=== PATIENT | female | born 1935 | race Caucasian/White ===

== ENCOUNTER → 2018-01-01 08:24 | Outpatient (CLI) | payer OTHER, MEDICAID, SELFPAY ==
[2018-01-01 09:35] LABS: Add Manual Diff / Slide Review NO; Basophils Percent Auto 0.9 % (0-2); Eosinophils Percent Auto 1.2 % (2-4); Hematocrit 38.1 % (36-46); Hemoglobin 13.1 g/dL (12.0-16.0); Lymphocytes Percent Auto 26.5 % (25-40); Mean Corpuscular HGB Conc 34.5 % (30-36); Mean Corpuscular Hemoglobin 30.9 PG (26-34); Mean Corpuscular Volume 89.7 fL (80-100); Monocytes Percent Auto 10.1 % (3-14); Neutrophils Absolute Auto 5400 /uL (3000-5900); Neutrophils Percent Auto 61.3 % (50-75); Platelet Count 306 X10^3/uL (150-400); Red Blood Cell Count 4.25 X10^6/uL (4.0-5.2); Red Cell Distribution Width 13.4 % (11.6-14.8); White Blood Cell Count 8.8 X10^3/uL (4.5-11.0)
[2018-01-01 10:06] LABS: Alanine Aminotransferase 16 IU/L (9-52); Albumin 4.3 g/dL (3.5-5.0); Albumin Globulin Ratio 1.3 (1.0-2.8); Alkaline Phosphatase 58 U/L (38-126); Aspartate Aminotransferase 28 IU/L (14-36); BUN Creatinine Ratio 16.3 (6-22); Bilirubin Total 0.5 mg/dL (0.2-1.3); Blood Urea Nitrogen 13 mg/dL (7-17); Calcium 9.4 mg/dL (8.4-10.2); Carbon Dioxide 31 mmol/L (22-32); Chloride 94 mmol/L (98-107); Cholesterol 159 mg/dL (140-199); Estimated Glomerular Filt Rate > 60.0 mL/min (>60); Globulin 3.4 g/dL (1.7-4.1); Glucose 89 mg/dL (80-110); HDL Cholesterol 69 mg/dL (40-60); HEMOLYSIS < 15 (0-50); LDL Cholesterol Calculated 79 mg/dL (<100); Potassium 3.6 mmol/L (3.4-5.1); Sodium 134 mmol/L (137-145); Total Protein 7.7 g/dL (6.3-8.2); Triglycerides 56 mg/dL (35-150)
[2018-01-01 10:23] LABS: Thyroid Stimulating Hormone 2.15 uIU/mL (0.47-4.68)
== END ==
PROVIDERS: PCP Family Medicine; Visit Provider Family Medicine
DX: I10 Essential (primary) hypertension (principal)
CPT/HCPCS: 80053; 80061; 84443; 85025

== ENCOUNTER 2018-02-16 10:17 | Emergency (ER) | payer OTHER, MEDICAID, SELFPAY ==
--- NOTE | 2018-02-16 10:21 | ED.NEUROSD ---
HPI - Neuro Symptoms/Deficit General Chief Complaint: Extremity Problem,Nontraumatic Stated Complaint: 'RIGHT ARM ISN'T WORKING' Time Seen by Provider: 02/16/18 10:21 Source: patient Mode of arrival: ambulatory Limitations: no limitations History of Present Illness HPI Narrative: Patient is an 82-year-old female here for evaluation of right arm pain. Patient states that several years ago she broke her right humerus. Has a plate and screws in her right humerus. She states that she has been doing physical therapy over the past several years and has regained all 70% the motion back in her right arm. She states that yesterday she did her normal exercises. No specific incident that could potentially have caused her problems today. Went to sleep last night without any problems. Woke up this morning and had pain with movement of her right shoulder and also pain in her right wrist. No other symptoms. She does have a history of Raynaud's and does have some tingling and a cool right hand. Related Data Home Medications Medication Instructions Recorded Confirmed aspirin 81 mg PO Q DAY #0 01/01/11 02/16/18 Previous Rx's Medication Instructions Recorded atenolol 50 mg PO QDAY #90 tab 12/01/17 levothyroxine 100 mcg PO QDAY #90 tab 12/01/17 estradiol 2 mg (7.5 mcg/24 hour) 1 vaginalrin VAG Q 3 MONTHS #1 each 12/10/17 vaginal ring lovastatin 20 mg PO HS #90 tab 12/16/17 polyethylene glycol 3350 17 gm PO QDAY #527 gm 01/11/18 Allergies Allergy/AdvReac Type Severity Reaction Status Date / Time Penicillins Allergy unkown due Verified 12/30/17 10:59 to childhood issues Review of Systems Constitutional Denies fatigue and Denies fever(s) Cardiovascular Denies chest pain and Denies dyspnea Respiratory Denies cough and Denies dyspnea Gastrointestinal Gastrointestinal: Denies abdominal pain, Denies nausea and Denies vomiting Genitourinary Denies dysuria Musculoskeletal Denies myalgias, Reports arthralgias (Right shoulder right wrist pain), Reports limited range of motion (Right shoulder) and Reports tingling (Right hand) Integumentary/Breasts Denies lesions and Denies rash Neurologic Reports tingling (Right hand) Endocrine Denies fatigue Hematologic/Lymphatic Denies easy bleeding and Denies easy bruising [facility] Medical History Hyperlipidemia (Chronic) Hypertension (Chronic) Hypothyroidism (Chronic) Surgical History History of surgery on arm (Resolved 06/06/13) History of third molar tooth extraction (Resolved 1971) History of tonsillectomy (Resolved 1966) Social History Smoking Status: Former smoker Exam Initial Vital Signs Initial Vital Signs: Vital Signs Temperature 97.3 F L 02/16/18 10:27 Pulse Rate 59 L 02/16/18 10:27 Respiratory Rate 16 02/16/18 10:27 Blood Pressure 182/85 H 02/16/18 10:27 Const General: cooperative, healthy appearing, comfortable, well developed, well groomed and No acute distress Orientation: alert, awake and oriented x3 HENMT Head: normal to inspection and normocephalic Resp Effort & Inspection: normal respiratory effort Auscultation: clear to auscultation bilaterally Cardio Rate: regular rate Rhythm: regular rhythm Pulses: radial pulses present on the right GI Inspection: non-distended Palpation: soft, No firm and No tender Skin Lesions: no lesions Rashes: no rashes Neuro Other: Sensation intact to light touch right upper extremity Extrem Other: Patient with limited range of motion of the right shoulder with tenderness to palpation throughout the right shoulder. Unable to flex or abduct the right shoulder. Right elbow unremarkable. Patient with tenderness to palpation on the volar aspect of the right wrist with limited bed flexion of the right wrist. Course Orders Ordered: ED Orders 02/16/18 10:28 XR shoulder RT min 2V Stat XR wrist RT min 3V Stat Vital Signs - 8 hr 02/16/18 10:27 02/16/18 10:54 02/16/18 11:57 Temperature 97.3 F L Pulse Rate 59 L 47 L 51 L Respiratory Rate 16 18 20 Blood Pressure 182/85 H 195/62 H Blood Pressure [Left Arm] 182/85 H Pulse Oximetry 98 98 MDM - Neuro Symptoms/Deficit Imaging Data X-ray shoulder: Radiologist's impression: [address] [address] XRay Report Signed Patient: DevonNasra DMR#: [id number] : 7Acct:[id number] Age/Sex: 82 / FDate of Service: 02/16/18 Loc: ED Accession Number: [id number] Procedure: XR shoulder RT min 2V Ordering Provider: Glen Galicia D.O. PROCEDURE: XR SHOULDER RT MIN 2V INDICATIONS: pain with limited ROM TECHNIQUE: 3 views of the shoulder were acquired. COMPARISON: [facility], , HUMERUS 2V RIGHT, 06/08/2013, 18:36. [facility], , SHOULDER MINIMUM 2 VIEW LEFT, 03/06/2008, 12:34. FINDINGS: Bones: Postoperative changes are identified related to previous open reduction internal fixation procedure involving a complex right shoulder fracture. Bilaterally plate orthopedic plate is secured in place by multiple screws. The hardware appears to be intact. No acute fracture is evident. There are severe degenerative changes of the glenohumeral and chromic clavicular joint. Degenerative changes of the mid spine are not well characterized. Soft tissues: No suspicious soft tissue calcifications. IMPRESSION: 1. No acute osseous abnormality of the right shoulder is evident, status post ORIF. 2. 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 Dictated by: Dusty Bobby M.D. on 02/16/2018 at 10:05 Approved by: Dusty Bobby M.D. on 02/16/2018 at 10:06 Wrist x-ray: Radiologist's impression: [place] [address] XRay Report Signed Patient: Nasra Osorio [facility]#: [id number] : 7At:[id number] Age/Sex: 82 / FDate of Service: 02/16/18 Loc: ED Accession Number: [id number] Procedure: XR wrist RT min 3V Ordering Provider: Glen Galicia D.O. PROCEDURE: XR WRIST RT MIN 3V INDICATIONS: pain no trauma TECHNIQUE: 4 views of the wrist were acquired. COMPARISON: None. FINDINGS: Bones: No fractures or dislocations. No suspicious bony lesions. There are mild to moderate degenerative changes present involving the basal joint of the thumb. Soft tissues: No suspicious soft tissue calcifications. IMPRESSION: No acute osseous abnormality of the right wrist is evident. Dictated by: Dusty Bobby M.D. on 02/16/2018 at 10:00 Approved by: Dusty Bobby M.D. on 02/16/2018 at 10:04 [facility] Narrative Medical decision making narrative: No fractures on the x-ray. Patient's physical exam is not consistent with a CVA or TIA. No trauma. No signs of infection. I do suspect this is musculoskeletal. Unsure if she slept on her shoulder wrong or if she over did her exercises yesterday. Will hold on CT scan for now. Has a normal neurologic exam otherwise. We did discuss how she could take her for shoulder. We discussed that she should continue to use her shoulder as much as possible. We did discuss the use of anti-inflammatories. We did discuss that she would call her primary doctor. She was given return precautions. She expressed understanding and agreement with plan. Discharge Plan Departure Patient Disposition: Home Clinical Impression: Arthritis, Acute shoulder pain, Acute wrist pain Discharge Date/Time: 02/16/18 11:57 Interventions: ED Discharge Assessment Last Done: 02/16/18 11:57 Instructions: Arthritis (Alternative Therapy), How To Perform RICE (Rest, Ice, Compress, Elevate) Activity Restrictions/Additional Instructions: Your only limited in her activity by the discomfort that you are having. Recommend that you stay as active as possible. You can taken anti-inflammatories such as Tylenol and/or Motrin/ibuprofen for any discomfort. Call your primary care doctor for a follow-up. Return to the emergency department for any new or worsening symptoms Prescriptions: No Action aspirin 81 mg Tablet,Delayed Release (Dr/Ec) 81 mg PO Q DAY Qty: 0 RF: 0 levothyroxine 100 mcg tablet 100 mcg PO QDAY Qty: 90 RF: 4 atenolol 50 mg tablet 50 mg PO QDAY Qty: 90 RF: 0 estradiol [Estring] 2 mg (7.5 mcg /24 hour) ring 1 vaginalrin VAG Q 3 MONTHS Qty: 1 RF: 3 lovastatin 20 mg tablet 20 mg PO HS Qty: 90 RF: 0 polyethylene glycol 3350 17 gram/dose powder 17 gm PO QDAY Qty: 527 RF: 4
[2018-02-16 10:27] VITALS: BP 182/85; PULSE 59; RESP 16; TEMP 36.3
--- NOTE | 2018-02-16 10:28 | DI.RAD.S_ITS ---
PROCEDURE: XR SHOULDER RT MIN 2V INDICATIONS: pain with limited ROM TECHNIQUE: 3 views of the shoulder were acquired. COMPARISON: [facility], , HUMERUS 2V RIGHT, 06/08/2013, 18:36. [facility], , SHOULDER MINIMUM 2 VIEW LEFT, 03/06/2008, 12:34. FINDINGS: Bones: Postoperative changes are identified related to previous open reduction internal fixation procedure involving a complex right shoulder fracture. Bilaterally plate orthopedic plate is secured in place by multiple screws. The hardware appears to be intact. No acute fracture is evident. There are severe degenerative changes of the glenohumeral and chromic clavicular joint. Degenerative changes of the mid spine are not well characterized. Soft tissues: No suspicious soft tissue calcifications. IMPRESSION: 1. No acute osseous abnormality of the right shoulder is evident, status post ORIF. 2. 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 Dictated by: Dusty Bobby M.D. on 02/16/2018 at 10:05 Approved by: Dusty Bobby M.D. on 02/16/2018 at 10:06
--- NOTE | 2018-02-16 10:28 | DI.RAD.S_ITS ---
PROCEDURE: XR WRIST RT MIN 3V INDICATIONS: pain no trauma TECHNIQUE: 4 views of the wrist were acquired. COMPARISON: None. FINDINGS: Bones: No fractures or dislocations. No suspicious bony lesions. There are mild to moderate degenerative changes present involving the basal joint of the thumb. Soft tissues: No suspicious soft tissue calcifications. IMPRESSION: No acute osseous abnormality of the right wrist is evident. Dictated by: Dusty Bobby M.D. on 02/16/2018 at 10:00 Approved by: Dusty Bobby M.D. on 02/16/2018 at 10:04
[2018-02-16 10:54] VITALS: BP 182/85; PULSE 47; RESP 18; O2SAT 98
[2018-02-16 11:57] VITALS: BP 195/62; PULSE 51; RESP 20; O2SAT 98
== END 2018-02-16 11:57 | disposition home or self-care (01) ==
PROVIDERS: Emergency Provider Emergency Medicine; Family Provider Family Medicine; PCP Family Medicine
DX: M25.511 Pain in right shoulder (principal); M25.531 Pain in right wrist; M19.90 Unspecified osteoarthritis, unspecified site
CPT/HCPCS: 73030; 73110; 99282; 99283

== ENCOUNTER 2018-03-26 11:12 | Emergency (ER) | payer OTHER, MEDICAID, SELFPAY ==
[2018-03-26 11:25] VITALS: BP 159/81; PULSE 85; RESP 18; TEMP 36.6; O2SAT 100
--- NOTE | 2018-03-26 11:29 | ED.GIBLEED ---
HPI - GI Bleed General Chief complaint: GI Bleed Stated complaint: bloody stool, 3 days Time Seen by Provider: 03/26/18 11:20 Source: patient Mode of arrival: ambulatory Limitations: no limitations History of Present Illness HPI Narrative: 82F nonsmoker presents with chief complaint of painless bright red bleeding per rectum for the past few days. She denies N/V/D. She takes no blood thinners. She once had a polyp clipped on a colonoscopy, but has had no other abnormal findings. She denies any fever chills. She is not dizzy nor weak or lightheaded. MD complaint: blood streaked stool Onset (ago): day(s) Relieving factors: none Exacerbating factors: none Associated symptoms: denies other symptoms Related Data Home Medications Medication Instructions Recorded Confirmed aspirin 81 mg PO MOWEFR #0 01/01/11 03/26/18 lovastatin 20 mg PO BEDTIME 03/26/18 03/26/18 oxyquinoline-sod.lauryl sulfat 1 applic VAGINAL DIRECTED 03/26/18 03/26/18 [Trimo-Kowalski Juanita] Previous Rx's Medication Instructions Recorded estradiol 2 mg (7.5 mcg/24 hour) 1 vaginalrin VAG Q 3 MONTHS #1 each 12/10/17 vaginal ring polyethylene glycol 3350 17 gm PO QDAY #527 gm 01/11/18 lisinopril 20 mg tablet 20 mg PO DAILY #30 tab 02/23/18 levothyroxine 100 mcg PO QDAY #90 tab 02/25/18 Allergies Allergy/AdvReac Type Severity Reaction Status Date / Time Penicillins Allergy unkown due Verified 02/23/18 09:23 to childhood issues Review of Systems Review of Systems All systems reviewed & are unremarkable except as noted in HPI and below Constitutional Denies chills, Denies fever(s), Denies lethargy and Denies weakness Eyes Denies change in vision, Denies eye discharge, Denies irritation and Denies loss of vision ENT Ears, Nose, Mouth, and Throat: Denies change in voice, Denies neck pain and Denies sore throat Cardiovascular Denies chest pain, Denies irregular heart rhythm, Denies lightheadedness, Denies palpitations, Denies dyspnea, Denies dyspnea on exertion and Denies orthopnea Respiratory Denies cough, Denies dyspnea, Denies dyspnea on exertion and Denies wheezing Gastrointestinal Gastrointestinal: Denies abdominal pain, Reports hematochezia, Denies change in bowel habits, Denies diarrhea, Denies nausea and Denies vomiting Genitourinary Denies hematuria, Denies flank pain, Denies urinary incontinence and Denies urinary urgency Musculoskeletal Denies neck pain Integumentary/Breasts Denies pruritus, Denies erythema, Denies rash and Denies wounds Neurologic Denies confusion, Denies loss of vision and Denies weakness Psychiatric Denies anxiety, Denies confusion, Denies depression, Denies homicidal ideation and Denies suicidal ideation Endocrine Denies palpitations Hematologic/Lymphatic Denies easy bruising Allergic/Immunologic Denies wheezing [facility] Medical History Hyperlipidemia (Chronic) Hypertension (Chronic) Hypothyroidism (Chronic) Surgical History History of surgery on arm (Resolved 06/06/13) History of third molar tooth extraction (Resolved 1971) History of tonsillectomy (Resolved 1966) Social History Smoking Status: Former smoker Exam Narrative Exam Narrative: GEN: AOx3 and in mild distress, a bit anxious EYES: Pupils are equal, round, and reactive to light and accommodation. Extraoccular muscles are intact bilaterally. There is no subconjunctival hemorrhage or exudate. CHEST: Lungs are clear to auscultation bilaterally and free of wheezes, rales, or rhonchi. Heart rate is regular rhythm, there are no murmurs, clicks, rubs, or gallops. There is no chest wall tenderness. ABD: Abdomen is soft and nontender. There is no guarding or rebound. Bowel sounds are normal in all 4 quadrants. There is no mass or organomegaly. RECTAL: No hemorrhoids or fissures. No obvious active bleeding but Hemoccult positive EXT: Full painless ROM of all extremities with no loss of sensation or strength. SKIN: Warm, pink, and dry. No erythema or rash Initial Vital Signs Initial Vital Signs: Vital Signs Temperature 97.8 F 03/26/18 11:25 Pulse Rate 85 03/26/18 11:25 Respiratory Rate 18 03/26/18 11:25 Blood Pressure 159/81 H 03/26/18 11:25 Pulse Oximetry 100 03/26/18 11:25 Course Orders Ordered: ED Orders 03/26/18 11:41 Complete Blood Count AUTO DIFF Stat Comprehensive Metabolic Panel Stat Consultations Consultation #1: Call to speak with Dr. Villalobos to discuss follow-up plans but he is not in the office. Vital Signs - 8 hr 03/26/18 12:30 Pulse Rate 74 Respiratory Rate 19 Blood Pressure [Left Arm] 150/102 H Pulse Oximetry 100 MDM - GI Bleed Lab Data Result diagrams: 03/26/18 11:41 03/26/18 11:41 Lab Results 03/26/18 03/26/18 Range/Units 11:41 11:41 WBC 7.9 (4.5-11.0) X10^3/uL RBC 4.13 (4.0-5.2) X10^6/uL Hgb 12.5 (12.0-16.0) g/dL Hct 36.6 (36-46) % MCV 88.6 (80-100) fL MCH 30.1 (26-34) PG MCHC 34.0 (30-36) % RDW 13.1 (11.6-14.8) % Plt Count 361 (150-400) X10^3/uL Neut % (Auto) 64.8 (50-75) % Lymph % (Auto) 24.0 L (25-40) % Brantley % (Auto) 9.6 (3-14) % Eos % (Auto) 0.9 L (2-4) % Baso % (Auto) 0.7 (0-2) % Neut # (Auto) 5100 (6278-5530) /uL Sodium 134 L (137-145) mmol/L Potassium 4.2 (3.4-5.1) mmol/L Chloride 95 L (98-107) mmol/L Carbon Dioxide 27 (22-32) mmol/L BUN 19 H (7-17) mg/dL Creatinine 0.80 (0.52-1.04) mg/dL Estimated GFR > 60.0 (>60) mL/min BUN/Creatinine Ratio 23.8 H (6-22) Glucose 90 (80-110) mg/dL Calcium 9.2 (8.4-10.2) mg/dL Total Bilirubin 0.3 (0.2-1.3) mg/dL AST 28 (14-36) IU/L ALT 24 (9-52) IU/L Alkaline Phosphatase 65 (38-126) U/L Total Protein 7.3 (6.3-8.2) g/dL Albumin 4.4 (3.5-5.0) g/dL Globulin 2.9 (1.7-4.1) g/dL Albumin/Globulin Ratio 1.5 (1.0-2.8) Discharge Plan Departure Patient Disposition: Home Clinical Impression: Bright red rectal bleeding Discharge Date/Time: 03/26/18 13:20 Interventions: ED Discharge Assessment Last Done: 03/26/18 13:19 Instructions: DI for Rectal Bleeding Activity Restrictions/Additional Instructions: *You have been diagnosed with [ bright red bleeding per rectum ] *What to do: * continue to take medications as directed *Follow up with your primary care provider in 2-3 days, call for an appointment. Let them know you were seen in the Emergency Department and that we ask that you be seen in follow up *Return to ER if you should have any new, worsening or concerning symptoms, such as [increased bleeding, severe pain, fever over 101 F ] Prescriptions: No Action aspirin 81 mg Tablet,Delayed Release (Dr/Ec) 81 mg PO MOWEFR Qty: 0 RF: 0 estradiol [Estring] 2 mg (7.5 mcg /24 hour) ring 1 vaginalrin VAG Q 3 MONTHS Qty: 1 RF: 3 polyethylene glycol 3350 17 gram/dose powder 17 gm PO QDAY Qty: 527 RF: 4 levothyroxine 100 mcg tablet 100 mcg PO QDAY Qty: 90 RF: 4 lisinopril 20 mg tablet 20 mg PO DAILY Qty: 30 RF: 3 oxyquinoline-sod.lauryl sulfat [Trimo-Kowalski Jelly] 0.025-0.01 % Gel 1 applic Vaginal DIRECTED RF: 0 lovastatin 20 mg tablet 20 mg PO BEDTIME RF: 0 Referrals: Kilo Villalobos MD [Primary Care Provider] -
[2018-03-26 11:54] LABS: Add Manual Diff / Slide Review NO; Basophils Percent Auto 0.7 % (0-2); Eosinophils Percent Auto 0.9 % (2-4); Hematocrit 36.6 % (36-46); Hemoglobin 12.5 g/dL (12.0-16.0); Mean Corpuscular Hemoglobin 30.1 PG (26-34); Mean Corpuscular Volume 88.6 fL (80-100); Monocytes Percent Auto 9.6 % (3-14); Neutrophils Absolute Auto 5100 /uL (3000-5900); Neutrophils Percent Auto 64.8 % (50-75); Platelet Count 361 X10^3/uL (150-400); Red Blood Cell Count 4.13 X10^6/uL (4.0-5.2); Red Cell Distribution Width 13.1 % (11.6-14.8); White Blood Cell Count 7.9 X10^3/uL (4.5-11.0)
[2018-03-26 12:02] LABS: Alanine Aminotransferase 24 IU/L (9-52); Albumin 4.4 g/dL (3.5-5.0); Albumin Globulin Ratio 1.5 (1.0-2.8); Alkaline Phosphatase 65 U/L (38-126); Aspartate Aminotransferase 28 IU/L (14-36); BUN Creatinine Ratio 23.8 (6-22); Bilirubin Total 0.3 mg/dL (0.2-1.3); Blood Urea Nitrogen 19 mg/dL (7-17); Calcium 9.2 mg/dL (8.4-10.2); Carbon Dioxide 27 mmol/L (22-32); Chloride 95 mmol/L (98-107); Estimated Glomerular Filt Rate > 60.0 mL/min (>60); Globulin 2.9 g/dL (1.7-4.1); Glucose 90 mg/dL (80-110); HEMOLYSIS < 15 (0-50); Potassium 4.2 mmol/L (3.4-5.1); Sodium 134 mmol/L (137-145); Total Protein 7.3 g/dL (6.3-8.2)
[2018-03-26 12:30] VITALS: BP 150/102; PULSE 74; RESP 19; O2SAT 100
== END 2018-03-26 13:20 | disposition home or self-care (01) ==
PROVIDERS: Emergency Provider Emergency Medicine; Family Provider Family Medicine; PCP Family Medicine
DX: K62.5 Hemorrhage of anus and rectum (principal)
CPT/HCPCS: 80053; 85025; 99282; 99283

== ENCOUNTER 2018-05-04 08:14 | Day surgery (SDC) | payer OTHER, MEDICAID, SELFPAY ==
[2018-05-04 08:41] VITALS: BP 168/78; PULSE 66; RESP 16; TEMP 36.2; O2SAT 100; BMI 19.8
[2018-05-04] MEDS: LACTATED RINGERS 1,000 ML 100 ML IV (08:56)
--- NOTE | 2018-05-04 09:09 | PM.PREOP ---
Pre-operative Note Interval Note Pre-op Check: Yes History & Physical Reviewed by Physician and Yes Exam Performed Changes: No H&P completed within 30 days and has changed as indicated here:: Patient seen and examined in the preoperative area today. Her history and physical examination performed within the last 30 days has not changed. Documented on the chart. Proceed with colonoscopy under anesthesia today as planned.
[2018-05-04 09:55] VITALS: BP 134/68; PULSE 56; RESP 12; TEMP 36.6; O2SAT 97
--- NOTE | 2018-05-04 09:58 | PM.OP.1 ---
Operative Date/Time/Diagnoses Date of procedure: 05/04/18 Time of procedure: 09:58 Pre-op diagnosis: Rectal bleeding Post-op diagnosis: same Procedure & Clinicians Procedure: Incomplete colonoscopy Same procedure as scheduled: No (Unable to complete full colonoscopy as initially planned due to redundant sigmoid colon) Indications: 82-year-old female who presented with rectal bleeding. She was recommended undergo colonoscopy. She require general anesthesia services given her advanced age, comorbid medical conditions, and difficulty by history with conscious sedation in the past. She was unable to tolerate previous procedures under conscious sedation. Surgeon: Isaak Lopez Click Yes if Unassisted: Yes Anesthesia Type: General Operative Notes Findings: Extremely redundant sigmoid colon at the level the rectosigmoid junction prohibiting complete colonoscopy. No obvious abnormalities to that level. Closure Type: not applicable Specimen(s): none sent Implants & Drains: None Estimated Blood Loss (mL): 5 Blood products transfused: none Procedure in detail: After obtaining informed consent the patient was brought to the endoscopy suite and left supine on the gurney. After satisfactory induction of anesthesia she was placed in left lateral decubitus position. Digital rectal examination revealed anal stenosis but no obvious masses. No gross blood. Colonoscope was inserted into the rectum and the bowel was insufflated with carbon dioxide. Under direct visualization of the colonic lumen the scope was advanced to the rectosigmoid junction region where despite multiple maneuvers I was unable to navigate the sigmoid colon. We repositioned her to a supine position and applied abdominal pressure intermittently. Despite all these maneuvers I could not traverse this segment of the sigmoid colon. I therefore withdrew the scope and replaced her back in the left lateral decubitus position. The pediatric colonoscope was brought onto the field and inserted into the rectum. Again, under direct visualization of the lumen the scope was advanced to the same level near the rectosigmoid junction. There was extreme redundancy and curvature to the colon at this level which prohibited any visualization of the colon lumen. The stiffening device was placed into the pediatric colonoscope and further attempts were made to sweep around the colon into the lumen of the sigmoid segment. However, this too was unsuccessful. Patient was repositioned to supine with abdominal pressure and without abdominal pressure. This too was unsuccessful. Patient was repositioned into the right lateral decubitus position. Again the same maneuvers were employed with the pediatric colonoscope with and without abdominal pressure. I could not traverse past this point of the colon. Patient was replaced once again into the left lateral decubitus position and the stiffening device was removed from the pediatric colonoscope. Further attempts were made and again without success. We spent at least 30-35 minutes trying to navigate this portion of the colon without success. At this point it became apparent that I was not going to be able to successfully and safely complete the examination. Therefore the scope was withdrawn and the procedure was terminated. She was taken recovery in stable condition. Complications: none Condition: stable Disposition: PACU Plan for aftercare: 1. Discharged home 2. Schedule air contrast barium enema to complete examination as an outpatient 3. Follow up in surgery Clinic after the barium enema study has been completed
[2018-05-04 10:00] VITALS: BP 131/58; PULSE 57; RESP 12; TEMP 36.6; O2SAT 97
[2018-05-04 10:05] VITALS: BP 122/58; PULSE 55; RESP 12; TEMP 36.6; O2SAT 98
[2018-05-04 10:11] VITALS: BP 122/54; PULSE 55; RESP 20; TEMP 36.6; O2SAT 98
[2018-05-04 10:24] VITALS: BP 171/78; PULSE 50; RESP 16; TEMP 36.1; O2SAT 100
== END 2018-05-04 10:45 | disposition home or self-care (01) ==
PROVIDERS: PCP Family Medicine; Visit Provider Surgery
PROC: 0DJD8ZZ Inspection of Lower Intestinal Tract, Via Natural or Artificial Opening Endoscopic (ICD-10-PCS; CPT 45378; principal; 2018-05-04 09:15)
DX: K62.5 Hemorrhage of anus and rectum (principal); Q43.8 Other specified congenital malformations of intestine; Z53.09 Procedure and treatment not carried out because of other contraindication; K59.09 Other constipation; E78.5 Hyperlipidemia, unspecified; I10 Essential (primary) hypertension; E03.9 Hypothyroidism, unspecified
CPT/HCPCS: 45378; J2405; J2704; J3010

== ENCOUNTER → 2018-05-27 09:02 | Outpatient (CLI) | payer OTHER, MEDICAID, SELFPAY ==
--- NOTE | 2018-05-27 09:07 | DI.RAD.S_ITS ---
PROCEDURE: FL BARIUM ENEMA W AIR CONTRAST INDICATIONS: incomplete colonoscopy COMPARISON: None. 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 No suspicious abdominal calcifications. Visualized solid organ contours are normal in size. No suspicious bony lesions. Colon: There is adequate air-contrast opacification from the rectum to the cecum. No strictures, ulcers, polyps, or masses are seen. Haustral folds are normal in thickness throughout. Sigmoid diverticula are incidentally noted. IMPRESSION: Suboptimal evaluation due to marked tortuosity of the colon (in particular the sigmoid colon is superimposed on itself) however no gross strictures or mass lesions identified. Sigmoid diverticulosis. Dictated by: Ceasar Wood M.D. on 05/27/2018 at 17:00 Approved by: Ceasar Wood M.D. on 05/27/2018 at 17:03
--- NOTE | 2018-06-02 12:54 | PM.PN.1 ---
Subjective Date Patient Seen: 06/02/18 Time Patient Seen: 12:54 Interval history: Called patient to discuss BE results. She denies any further bleeding or other issues at this time. Objective Labs Labs: Barium enema images are personally reviewed and report is also reviewed. All the above discussed with the patient Assessment & Plan Plan: Assessment/Plan Narrative: Patient has no evidence of strictures, ulcerations, large polyps, or masses. No evidence of significant neoplasia. As suspected the sigmoid colon is extremely tortuous and redundant. In my opinion, patient does not require any further endoscopy or barium enema studies for any reason barring significant other acute diseases such as massive gastrointestinal hemorrhage. I explained this to her in detail. All questions were answered to her satisfaction. She voiced understanding. She will follow up as needed.
== END ==
PROVIDERS: PCP Family Medicine; Visit Provider Surgery
DX: K62.5 Hemorrhage of anus and rectum (principal); K57.30 Diverticulosis of large intestine without perforation or abscess without bleeding
CPT/HCPCS: 74280

== ENCOUNTER → 2018-06-04 13:00 | Outpatient (CLI) | payer OTHER, MEDICAID, SELFPAY ==
[2018-06-04 13:43] LABS: Alanine Aminotransferase 24 IU/L (9-52); Albumin Globulin Ratio 1.4 (1.0-2.8); Alkaline Phosphatase 65 U/L (38-126); Aspartate Aminotransferase 24 IU/L (14-36); BUN Creatinine Ratio 23.3 (6-22); Bilirubin Total 0.3 mg/dL (0.2-1.3); Blood Urea Nitrogen 21 mg/dL (7-17); Calcium 9.5 mg/dL (8.4-10.2); Carbon Dioxide 29 mmol/L (22-32); Chloride 92 mmol/L (98-107); Estimated Glomerular Filt Rate > 60.0 mL/min (>60); Globulin 2.8 g/dL (1.7-4.1); Glucose 78 mg/dL (80-110); HEMOLYSIS < 15 (0-50); Potassium 4.1 mmol/L (3.4-5.1); Sodium 131 mmol/L (137-145); Total Protein 6.8 g/dL (6.3-8.2)
== END ==
PROVIDERS: PCP Family Medicine; Visit Provider Registered Nurse
DX: I10 Essential (primary) hypertension (principal)
CPT/HCPCS: 36415; 80053

== ENCOUNTER → 2018-08-04 10:24 | Outpatient (CLI) | payer OTHER, MEDICAID, SELFPAY | PROVIDERS: PCP Family Medicine; Visit Provider Obstetrics & Gynecology | DX: R33.9 Retention of urine, unspecified (principal) | CPT/HCPCS: 87086 ==

== ENCOUNTER → 2019-03-17 09:39 | Outpatient (CLI) | payer OTHER, MEDICAID, SELFPAY ==
[2019-03-17 10:52] LABS: Add Manual Diff / Slide Review NO; Basophils Absolute Auto 100 /uL (0-100); Basophils Percent Auto 0.9 % (0-2); Eosinophils Absolute Auto 100 /uL (0-450); Eosinophils Percent Auto 1.5 % (2-4); Hemoglobin 12.9 g/dL (12.0-16.0); Lymphocytes Absolute Auto 2100 /uL (1100-4500); Lymphocytes Percent Auto 25.2 % (25-40); Mean Corpuscular Hemoglobin 30.3 PG (26-34); Mean Corpuscular Volume 89.1 fL (80-100); Monocytes Absolute Auto 600 /uL (0-900); Monocytes Percent Auto 7.4 % (3-14); Neutrophils Absolute Auto 5300 /uL (1500-7000); Platelet Count 330 X10^3/uL (150-400); Red Blood Cell Count 4.26 X10^6/uL (4.0-5.2); Red Cell Distribution Width 13.9 % (11.6-14.8); White Blood Cell Count 8.2 X10^3/uL (4.5-11.0)
[2019-03-17 11:12] LABS: Alanine Aminotransferase 8 IU/L (9-52); Albumin 4.1 g/dL (3.5-5.0); Albumin Globulin Ratio 1.3 (1.0-2.8); Alkaline Phosphatase 72 U/L (38-126); Aspartate Aminotransferase 27 IU/L (14-36); Bilirubin Total 0.4 mg/dL (0.2-1.3); Blood Urea Nitrogen 20 mg/dL (7-17); Calcium 9.5 mg/dL (8.4-10.2); Carbon Dioxide 29 mmol/L (22-32); Chloride 94 mmol/L (98-107); Cholesterol 168 mg/dL (140-199); Estimated Glomerular Filt Rate > 60.0 mL/min (>60); Globulin 3.2 g/dL (1.7-4.1); Glucose 79 mg/dL (80-110); HDL Cholesterol 54 mg/dL (40-60); HEMOLYSIS 17 (0-50); LDL Cholesterol Calculated 97 mg/dL (<100); Potassium 4.4 mmol/L (3.4-5.1); Sodium 131 mmol/L (137-145); Total Protein 7.3 g/dL (6.3-8.2); Triglycerides 83 mg/dL (35-150)
[2019-03-17 11:39] LABS: Thyroid Stimulating Hormone 1.61 uIU/mL (0.47-4.68)
== END ==
PROVIDERS: PCP Family Medicine; Visit Provider Family Medicine
DX: I10 Essential (primary) hypertension (principal); E03.9 Hypothyroidism, unspecified; E78.2 Mixed hyperlipidemia
CPT/HCPCS: 36415; 80053; 80061; 84443; 85025

== ENCOUNTER → 2020-01-18 08:53 | Outpatient (CLI) | payer MEDICARE, MEDICAID, SELFPAY ==
[2020-01-18 09:49] LABS: Add Manual Diff / Slide Review NO; Basophils Absolute Auto 100 /uL (0-100); Basophils Percent Auto 0.9 % (0-2); Eosinophils Absolute Auto 100 /uL (0-450); Eosinophils Percent Auto 1.5 % (2-4); Hematocrit 39.2 % (36-46); Hemoglobin 13.2 g/dL (12.0-16.0); Lymphocytes Absolute Auto 1900 /uL (1100-4500); Lymphocytes Percent Auto 23.9 % (25-40); Mean Corpuscular HGB Conc 33.7 % (30-36); Mean Corpuscular Hemoglobin 30.1 PG (26-34); Mean Corpuscular Volume 89.3 fL (80-100); Monocytes Absolute Auto 700 /uL (0-900); Monocytes Percent Auto 8.3 % (3-14); Neutrophils Absolute Auto 5200 /uL (1500-7000); Neutrophils Percent Auto 65.4 % (50-75); Platelet Count 287 X10^3/uL (150-400); Red Blood Cell Count 4.39 X10^6/uL (4.0-5.2); Red Cell Distribution Width 13.5 % (11.6-14.8); White Blood Cell Count 7.9 X10^3/uL (4.5-11.0)
[2020-01-18 10:07] LABS: Alanine Aminotransferase 31 IU/L (<35); Albumin 4.4 g/dL (3.5-5.0); Albumin Globulin Ratio 1.5 (1.0-2.8); Alkaline Phosphatase 84 U/L (38-126); Aspartate Aminotransferase 37 IU/L (14-36); BUN Creatinine Ratio 20.6 (6-22); Bilirubin Total 0.5 mg/dL (0.2-1.3); Blood Urea Nitrogen 20 mg/dL (7-17); Calcium 9.7 mg/dL (8.4-10.2); Carbon Dioxide 29 mmol/L (22-32); Chloride 94 mmol/L (98-107); Cholesterol 151 mg/dL (140-199); Estimated Glomerular Filt Rate 54.8 mL/min (>60); Glucose 81 mg/dL (80-110); HDL Cholesterol 66 mg/dL (40-60); HEMOLYSIS < 15 (0-50); LDL Cholesterol Calculated 72 mg/dL (<100); Potassium 4.4 mmol/L (3.4-5.1); Sodium 131 mmol/L (137-145); Total Protein 7.4 g/dL (6.3-8.2); Triglycerides 65 mg/dL (35-150)
[2020-01-18 10:23] LABS: Free T3, Triiodothyronine Free 2.56 pg/mL (2.77-5.27); Free T4, Direct Thyroxine 1.76 ng/dL (0.78-2.19)
[2020-01-18 10:37] LABS: Thyroid Stimulating Hormone 3.12 uIU/mL (0.47-4.68)
== END ==
PROVIDERS: PCP Family Medicine; Referring Provider Nurse Practitioner; Visit Provider Nurse Practitioner
DX: E78.2 Mixed hyperlipidemia (principal); I10 Essential (primary) hypertension; Z79.899 Other long term (current) drug therapy; E03.9 Hypothyroidism, unspecified
CPT/HCPCS: 36415; 80053; 80061; 84439; 84443; 84481; 85025

== ENCOUNTER 2020-12-08 11:29 | Emergency (ER) | payer MEDICARE, MEDICAID, SELFPAY ==
[2020-12-08 11:35] VITALS: BP 130/78; PULSE 70; RESP 14; TEMP 36.7; O2SAT 99
--- NOTE | 2020-12-08 11:47 | ED.GENADULT ---
HPI - General Adult General Stated complaint: FELL.SWOLLEN FINGER/RING STUCK Time Seen by Provider: 12/08/20 11:45 History of Present Illness HPI narrative: 85-year-old female who yesterday sustained a fall. She states that she felt like she was dehydrated because she just got back from a walk. She was at the car and she bent over and just lost her balance. She has had balance issues in the past. She did hit her head. No loss of conscious. She is not on any blood thinners. This morning she woke up and noticed that her ring finger on the right hand was swollen and her ring was getting tight. She has no pain in the finger. She came to get her ring removed Related Data Home Medications Medication Instructions Recorded Confirmed oxyquinoline 0.025 %-sodium lauryl 1 applic VAGINAL DIRECTED 03/26/18 10/24/20 sulfate 0.01 % vaginal gel (Trimo-Kowalski Jelly) aspirin 81 mg tablet,delayed 81 mg PO 3XW tab 09/22/18 10/24/20 release Previous Rx's Medication Instructions Recorded polyethylene glycol 3350 17 17 gm PO QDAY #527 gm 06/28/18 gram/dose oral powder varicella-zoster glycoE [id number] 0.5 ml IM ONCE #1 ea 04/23/20 adj(PF) 50 mcg/0.5 mL IM susp, kit (Shingrix (PF)) levothyroxine 100 mcg tablet 100 mcg PO QDAY #90 tab 05/30/20 atenolol 50 mg tablet See Rx Instructions .ROUTE 06/11/20 .COMPLEX #90 tab lovastatin 20 mg tablet 20 mg PO BEDTIME #90 tab 07/03/20 fluticasone propionate 50 1 spray INTRANASAL DAILY #9.9 ml 07/25/20 mcg/actuation nasal spray,suspension estradiol (Estring) 1 vag ring VAG Q 3 MONTHS #1 each 10/17/20 Allergies Allergy/AdvReac Type Severity Reaction Status Date / Time Penicillins Allergy unkown due Verified 10/24/20 15:32 to childhood issues Review of Systems Constitutional Constitutional: Denies fever(s) and Denies headache(s) ENT Ears, Nose, Mouth, and Throat: Denies headache(s) Cardiovascular Comments: No chest pain Respiratory Comments: No shortness of breath Gastrointestinal Comments: No abdominal pain Musculoskeletal Comments: No finger pain, swelling to the right ring finger Integumentary/Breasts Comments: Bruise to the right forehead and swelling to the right ring finger Neurologic Neurologic: Denies headache(s) Comments: Does endorse frequent falls Psychiatric Psychiatric: Reports system reviewed and no additional complaints, except as documented Endocrine Endocrine: Reports system reviewed and no additional complaints, except as documented Hematologic/Lymphatic On Anticoagulants: No Allergic/Immunologic Allergic/Immunologic: Reports system reviewed and no additional complaints, except as documented Patient History Medical History (Updated 12/08/20 @ 11:57 by Glen Galicia DO) Advanced age Chin laceration Chronic constipation Contusion of left leg Hyperlipidemia Hypertension Hypothyroidism Noncompliance with medication regimen Pelvic floor relaxation (11/23/13) Pelvic floor relaxation Rectal bleeding (2017) Shoulder pain Vaginal atrophy (11/23/13) Vaginal atrophy Vaginal pessary in situ (11/23/13) Surgical History History of colonoscopy (05/04/18) History of colonoscopy with polypectomy (02/22/09) History of surgery on arm (06/08/13) History of third molar tooth extraction (1971) History of tonsillectomy (1966) Family History Mother Gallstones Social History household members: none lives independently: Yes occupational status: previously employed Smoking Status: Former smoker alcohol intake: current Smoking Status: Former smoker Substance Use Type: does not use Exam Const General: cooperative, healthy appearing and comfortable [facility] Head: normal to inspection and normocephalic Resp Effort & Inspection: normal respiratory effort Auscultation: clear to auscultation bilaterally Cardio Rate: regular rate Skin Other: Patient does have a bruise to the right forehead. There is no break in the skin. Neuro General: patient alert, patient awake, patient oriented x3 and moves all extremities Extrem Other: Shoulders elbows and wrists are unremarkable. Lower extremities are unremarkable. Does have circumferential bruising to the right ring finger however she is able to flex and extend at all of the joints this finger without discomfort. She has no tenderness to palpation. Psych Appearance: grossly normal and well kempt Medical Decision Making MDM Narrative Medical decision making narrative: Her ring was removed without incident. She continues to be able to flex and extend without difficulty. Has no discomfort with palpation. I do have low suspicion for fracture so we will hold on x-rays for now. I feel that we can hold on other radiologic studies. She was given return precautions and follow-up instructions. She expressed understanding and agreement. Discharge Plan Departure Patient Disposition: Home Clinical Impression: Contusion of skin Instructions: DI for Contusion Activity Restrictions/Additional Instructions: Continue all of your medications as directed. Contact your primary provider for follow-up. Return to the emergency department for any new or worsening symptoms Prescriptions: No Action polyethylene glycol 3350 17 gram/dose powder 17 gm PO QDAY Qty: 527 RF: 3 levothyroxine 100 mcg tablet 100 mcg PO QDAY Qty: 90 RF: 3 atenolol 50 mg tablet See Rx Instructions .ROUTE .COMPLEX Qty: 90 RF: 2 lovastatin 20 mg tablet 20 mg PO BEDTIME Qty: 90 RF: 3 Shingrix (PF) 50 mcg/0.5 mL suspension for reconstitution 0.5 ml IM ONCE Qty: 1 RF: 0 aspirin 81 mg tablet,delayed release (DR/EC) 81 mg PO 3XW RF: 0 fluticasone propionate 50 mcg/actuation spray,suspension 1 spray intranasal DAILY Qty: 9.9 RF: 2 Estring 2 mg (7.5 mcg /24 hour) ring 1 vag ring VAG Q 3 MONTHS Qty: 1 RF: 3 oxyquinoline-sod.lauryl sulfat [Trimo-Kowalski Jelly] 0.025-0.01 % Gel 1 applic Vaginal DIRECTED RF: 0 Referrals: Inez Julio ARNP [Primary Care Provider] -
== END 2020-12-08 12:04 | disposition home or self-care (01) ==
PROVIDERS: Emergency Provider Emergency Medicine; PCP Nurse Practitioner
DX: S00.83XA Contusion of other part of head, initial encounter (principal); W19.XXXA Unspecified fall, initial encounter
CPT/HCPCS: 99281

== ENCOUNTER → 2021-01-21 12:25 | Outpatient (CLI) | payer MEDICARE, MEDICAID, SELFPAY ==
[2021-01-21 13:11] LABS: Add Manual Diff / Slide Review NO; Basophils Absolute Auto 100 /uL (0-100); Basophils Percent Auto 0.7 % (0-2); Eosinophils Absolute Auto 100 /uL (0-450); Eosinophils Percent Auto 1.1 % (2-4); Hematocrit 39.3 % (36-46); Hemoglobin 13.4 g/dL (12.0-16.0); Lymphocytes Absolute Auto 2500 /uL (1100-4500); Lymphocytes Percent Auto 28.4 % (25-40); Mean Corpuscular Hemoglobin 30.8 PG (26-34); Mean Corpuscular Volume 90.7 fL (80-100); Monocytes Absolute Auto 700 /uL (0-900); Monocytes Percent Auto 7.8 % (3-14); Neutrophils Absolute Auto 5400 /uL (1500-7000); Platelet Count 254 X10^3/uL (150-400); Red Blood Cell Count 4.34 X10^6/uL (4.0-5.2); Red Cell Distribution Width 13.4 % (11.6-14.8); White Blood Cell Count 8.7 X10^3/uL (4.5-11.0)
[2021-01-21 13:29] LABS: Alanine Aminotransferase 17 IU/L (<35); Albumin 4.4 g/dL (3.5-5.0); Albumin Globulin Ratio 1.3 (1.0-2.8); Alkaline Phosphatase 82 U/L (38-126); Aspartate Aminotransferase 32 IU/L (14-36); BUN Creatinine Ratio 22.8 (6-22); Bilirubin Total 0.5 mg/dL (0.2-1.3); Blood Urea Nitrogen 21 mg/dL (7-17); Calcium 9.4 mg/dL (8.4-10.2); Carbon Dioxide 28 mmol/L (22-32); Chloride 95 mmol/L (98-107); Estimated Glomerular Filt Rate 58.2 mL/min (>60); Globulin 3.3 g/dL (1.7-4.1); Glucose 98 mg/dL (80-110); HEMOLYSIS < 15 (0-50); Magnesium 1.9 mg/dL (1.6-2.3); Potassium 4.4 mmol/L (3.4-5.1); Sodium 129 mmol/L (137-145); Total Protein 7.7 g/dL (6.3-8.2)
[2021-01-21 13:45] LABS: Free T3, Triiodothyronine Free 2.83 pg/mL (2.77-5.27); Free T4, Direct Thyroxine 1.68 ng/dL (0.78-2.19)
[2021-01-21 13:58] LABS: Thyroid Stimulating Hormone 1.44 uIU/mL (0.47-4.68)
== END ==
PROVIDERS: PCP Nurse Practitioner; Referring Provider Nurse Practitioner; Visit Provider Nurse Practitioner
DX: R53.83 Other fatigue (principal); I10 Essential (primary) hypertension; I49.9 Cardiac arrhythmia, unspecified; E03.9 Hypothyroidism, unspecified
CPT/HCPCS: 36415; 80053; 83735; 84439; 84443; 84481; 85025

== ENCOUNTER → 2021-02-07 14:42 | Outpatient (CLI) | payer MEDICARE, MEDICAID, SELFPAY ==
--- NOTE | 2021-02-07 14:43 | DI.US.S_ITS ---
PROCEDURE: US EXTREMITY NONVASC LOWER RT INDICATIONS: RULE OUT HI CYST FOR INTERMITTENT RIGHT ANKLE SWELLING TECHNIQUE: Real-time scanning was performed of the ankle and popliteal fossa , with image documentation. COMPARISON: None. FINDINGS: There is no evidence of fluid collection within the popliteal fossa. No abnormal fluid collection is identified at the ankle. IMPRESSION: Unremarkable exam. Dictated by: Bushra Mauricio M.D. on 02/07/2021 at 16:35 Approved by: Bushra Mauricio M.D. on 02/07/2021 at 16:36
== END ==
PROVIDERS: PCP Nurse Practitioner; Referring Provider Nurse Practitioner; Visit Provider Nurse Practitioner
DX: M79.89 Other specified soft tissue disorders (principal)
CPT/HCPCS: 76882

== ENCOUNTER → 2021-06-06 13:40 | Outpatient (CLI) | payer MEDICARE, MEDICAID, SELFPAY ==
[2021-06-06 19:23] LABS: Appearance Urine UA CLEAR; Bilirubin Urine UA NEGATIVE (NEGATIVE); Color Urine UA YELLOW; Glucose Urine UA NEGATIVE (Negative); Ketones Urine UA NEGATIVE (NEGATIVE); Leukocyte Esterase Urine UA 2+ (NEGATIVE); Nitrite Urine UA NEGATIVE (Negative); Occult Blood Urine UA TRACE-LYSED (Negative); Protein Urine UA 2+ (Negative); Urobilinogen Urine UA 0.2 E.U./dL (0.2)
[2021-06-06 19:34] LABS: pH Urine UA 5.5 (4.5-8.0)
[2021-06-06 20:30] LABS: Bacteria Urine Moderate (10-30); Culture Indicated Urine Specimen Cultured; RBC Urine 1-5/HPF (0-5/HPF); Squamous Epithelial Cell Urine 1-5 /HPF (0-5/HPF); WBC Urine 5-10/HPF (0-5/HPF)
== END ==
PROVIDERS: PCP Nurse Practitioner; Referring Provider Obstetrics & Gynecology; Visit Provider Obstetrics & Gynecology
DX: R32 Unspecified urinary incontinence (principal); Z91.89 Other specified personal risk factors, not elsewhere classified
CPT/HCPCS: 81003; 81015; 87086

== ENCOUNTER → 2021-07-04 13:20 | Outpatient (CLI) | payer MEDICARE, MEDICAID, SELFPAY ==
[2021-07-04 14:18] LABS: Add Manual Diff / Slide Review NO; Basophils Absolute Auto 100 /uL (0-100); Basophils Percent Auto 0.7 % (0-2); Eosinophils Absolute Auto 100 /uL (0-450); Eosinophils Percent Auto 1.1 % (2-4); Hematocrit 38.2 % (36-46); Hemoglobin 12.9 g/dL (12.0-16.0); Lymphocytes Absolute Auto 2500 /uL (1100-4500); Lymphocytes Percent Auto 28.5 % (25-40); Mean Corpuscular HGB Conc 33.8 % (30-36); Mean Corpuscular Hemoglobin 30.4 PG (26-34); Mean Corpuscular Volume 90.1 fL (80-100); Monocytes Absolute Auto 700 /uL (0-900); Monocytes Percent Auto 8.4 % (3-14); Neutrophils Absolute Auto 5300 /uL (1500-7000); Neutrophils Percent Auto 61.3 % (50-75); Platelet Count 275 X10^3/uL (150-400); Red Blood Cell Count 4.24 X10^6/uL (4.0-5.2); Red Cell Distribution Width 13.4 % (11.6-14.8); White Blood Cell Count 8.6 X10^3/uL (4.5-11.0)
[2021-07-04 14:40] LABS: Alanine Aminotransferase 19 IU/L (<35); Albumin 4.4 g/dL (3.5-5.0); Albumin Globulin Ratio 1.3 (1.0-2.8); Alkaline Phosphatase 83 U/L (38-126); Aspartate Aminotransferase 32 IU/L (14-36); BUN Creatinine Ratio 18.1 (6-22); Bilirubin Total 0.6 mg/dL (0.2-1.3); Blood Urea Nitrogen 19 mg/dL (7-17); Calcium 9.5 mg/dL (8.4-10.2); Carbon Dioxide 29 mmol/L (22-32); Chloride 97 mmol/L (98-107); Cholesterol 150 mg/dL (140-199); Creatine Kinase 76 U/L (30-135); Estimated Glomerular Filt Rate 49.9 mL/min (>60); Globulin 3.4 g/dL (1.7-4.1); Glucose 99 mg/dL (80-110); HDL Cholesterol 63 mg/dL (40-60); HEMOLYSIS < 15 (0-50); LDL Cholesterol Calculated 68 mg/dL (<100); Potassium 4.1 mmol/L (3.4-5.1); Sodium 132 mmol/L (137-145); Total Protein 7.8 g/dL (6.3-8.2); Triglycerides 96 mg/dL (35-150)
[2021-07-04 14:59] LABS: Troponin I 0.023 ng/mL (0.01-0.034)
[2021-07-04 15:05] LABS: Free T4, Direct Thyroxine 1.84 ng/dL (0.78-2.19)
[2021-07-04 15:19] LABS: Thyroid Stimulating Hormone 1.14 uIU/mL (0.47-4.68)
[2021-07-04 16:51] LABS: Creatinine Urine Random 23.4 mg/dL
[2021-07-04 17:14] LABS: Microalbumi Creatinin Ratio Ur 4786.3 ug/mg CR (<30)
== END ==
PROVIDERS: PCP Nurse Practitioner; Referring Provider Nurse Practitioner; Visit Provider Nurse Practitioner
DX: I10 Essential (primary) hypertension (principal); E03.9 Hypothyroidism, unspecified; E78.2 Mixed hyperlipidemia; I44.1 Atrioventricular block, second degree; I49.9 Cardiac arrhythmia, unspecified; R53.82 Chronic fatigue, unspecified
CPT/HCPCS: 36415; 80053; 80061; 82043; 82550; 82570; 83735; 84439; 84443; 84481; 84484; 85025

== ENCOUNTER → 2021-07-09 14:59 | Outpatient (CLI) | payer MEDICARE, MEDICAID, SELFPAY ==
--- NOTE | 2021-07-09 15:01 | DI.RAD.S_ITS ---
PROCEDURE: XR SHOULDER RT MIN 2V INDICATIONS: Right upper arm pain s/p plate and pinning of arm and should TECHNIQUE: 3 views of the shoulder were acquired. COMPARISON: [facility], CR, XR SHOULDER RT MIN 2V, 02/16/2018, 10:32. FINDINGS: Bones: Proximal humeral and scapular old fracture deformity again noted with increased remodeling noted in the interval. Proximal humeral plate and screw instrumentation present without evidence of hardware failure or loosening. Advanced glenohumeral joint arthritic changes present with marginal osteophyte and remodeling as well. Similar arthritic changes noted involving the acromioclavicular joint. Soft tissues: No suspicious soft tissue calcifications. IMPRESSION: 1. Old fracture deformity with internal fixation hardware 2. 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 on 07/09/2021 at 19:08
== END ==
PROVIDERS: PCP Nurse Practitioner; Referring Provider Nurse Practitioner; Visit Provider Nurse Practitioner
DX: M79.601 Pain in right arm (principal); S42.201S Unspecified fracture of upper end of right humerus, sequela; S42.101S Fracture of unspecified part of scapula, right shoulder, sequela
CPT/HCPCS: 73030

== ENCOUNTER 2021-07-25 13:21 | Observation (INO) | payer MEDICARE, MEDICAID, SELFPAY ==
[2021-07-25] VITALS (41 sets, daily range): BP systolic 140–247; BP diastolic 64–115; PULSE 50–78; RESP 10–33; TEMP 36.2–36.5; O2SAT 79–100; BMI 19.9; BMI 20.1
--- NOTE | 2021-07-25 14:52 | ED_ITS ---
HPI - Extremity Problem General Chief complaint: Extremity Problem,Nontraumatic Stated complaint: body wouldn't move this morning Time Seen by Provider: 07/25/21 14:04 Source: patient Mode of arrival: Ambulatory History of Present Illness HPI Narrative: Patient is a 85-year-old female history of hypertension and a Mobitz type 2 presenting today with left leg pain, from her knee down. She is states that she woke up this morning around 4:00 a.m. to use the restroom when she had intense left leg pain. She said she was able to hobble to the bathroom and back she went back to bed got up again around 8:00 a.m. she still is having pain at that time she is able to take some Tylenol she used furniture to get around her house. She accidentally stepped down and paired weight on her left leg and then it suddenly did not hurt anymore. She called her insurance company who advised her to come the emergency department for evaluation. She is noted to be quite hypertensive with systolic well over the 200s. She states that that is just her normal blood pressure. She has been taken off her Coreg due to a second-degree type 2 Mobitz block. She is scheduled to see cardiology on August 08. She overall is feeling significantly better. She has no chest pain no shortness of breath, no headache or blurry vision. Blood pressure seems to have come down and she has not had any recurrence of pain. Patient has tried and failed amlodipine, lisinopril, atenolol, carditone, according to PCP notes. Daughter thinks some of this may be because patient does not try it for a long enough period of time. Related Data Home Medications Medication Instructions Recorded Confirmed oxyquinoline 0.025 %-sodium lauryl 1 applic VAGINAL DIRECTED 03/26/18 05/27/21 sulfate 0.01 % vaginal gel (Trimo-Kowalski Jelly) aspirin 81 mg tablet,delayed 81 mg PO 3XW tab 09/22/18 05/27/21 release Previous Rx's Medication Instructions Recorded polyethylene glycol 3350 17 17 gm PO QDAY #527 gm 06/28/18 gram/dose oral powder varicella-zoster glycoE [id number] 0.5 ml IM ONCE #1 ea 04/23/20 adj(PF) 50 mcg/0.5 mL IM susp, kit (Shingrix (PF)) fluticasone propionate 50 1 spray INTRANASAL DAILY #9.9 ml 07/25/20 mcg/actuation nasal spray,suspension estradiol (Estring) 1 vag ring VAG Q 3 MONTHS #1 each 10/17/20 lovastatin 20 mg tablet 20 mg PO BEDTIME #90 tab 07/03/21 levothyroxine 100 mcg tablet 100 mcg PO QDAY #90 tab 07/04/21 capsaicin 0.1 % topical cream 1 applic TOPICAL TID #60 g 07/09/21 (Capzasin-HP) Allergies Allergy/AdvReac Type Severity Reaction Status Date / Time Penicillins Allergy unkown due Verified 05/27/21 14:58 to childhood issues Review of Systems Review of Systems Narrative: GENERAL: Denies chills, fatigue, malaise, fever, sweats, travel HEENT: Denies sinus pain, ear pain, sore throat, difficulty swallowing, neck pain RESPIRATORY: Denies dyspnea, cough, wheezing, hemoptysis, sputum. CARDIOVASCULAR: Denies chest pain, palpitations, orthopnea, edema GASTROINTESTINAL: Denies nausea, vomiting, abdominal pain, diarrhea, constipation, melena. : Denies dysuria, frequency, incontinence, hematuria, urinary retention, flank pain. MUSCULOSKELETAL: See HPI SKIN: No rash, no erythema, no pruritus NEUROLOGIC: Denies weakness, dizziness, headache, numbness, change in speech, confusion PSYCHIATRIC: No concerning psychosocial issues. 12 point review of systems is negative except for those stated above and HPI Patient History Medical History Advanced age Chin laceration Chronic constipation Contusion of left leg Hyperlipidemia Hypertension Hypothyroidism Mobitz type II incomplete atrioventricular block Noncompliance with medication regimen Pelvic floor relaxation (11/23/13) Pelvic floor relaxation Rectal bleeding (2017) Shoulder pain Vaginal atrophy (11/23/13) Vaginal atrophy Vaginal pessary in situ (11/23/13) Surgical History History of colonoscopy (05/04/18) History of colonoscopy with polypectomy (02/22/09) History of surgery on arm (06/08/13) History of third molar tooth extraction (1971) History of tonsillectomy (1966) Family History Mother Gallstones Social History household members: none lives independently: Yes occupational status: previously employed Smoking Status: Former smoker alcohol intake: current Smoking Status: Former smoker Substance Use Type: does not use Exam Initial Vital Signs Initial Vital Signs: Vital Signs Temperature 97.7 F 07/25/21 13:32 Pulse Rate 54 L 07/25/21 13:32 Respiratory Rate 16 07/25/21 13:32 Blood Pressure 228/106 H 07/25/21 13:32 Pulse Oximetry 100 07/25/21 13:32 GENERAL: Alert well-appearing 85-year-old female and in no acute distress. HEENT: Head atraumatic,EOMI, pupils reactive, face symmetric, moist mucous membranes CARDIOVASCULAR: Regular rate and rhythm without murmurs, rubs or gallops. RESPIRATORY: Breath sounds equal bilaterally, no wheezes rales or rhonchi. ABDOMEN: Soft, nontender. Normoactive bowel sounds all 4 quadrants. No guarding or rebound. EXTREMITIES: Normal range of motion, no clubbing or edema. Neurovascularly intact Good strong distal pedal pulse able flex and extend at the knee. No swelling no pain no sign of trauma NEUROLOGICAL: Alert and oriented x4.Normal gait and speech. Cranial nerves II through XII grossly intact. Good [id number], good [id number], strength equal bilaterally, no dysarthria or aphasia, sensation in tact to soft touch bilaterally, no visual changes, no facial droop SKIN: Warm, dry, no laceration, no petechiae, no rashes or lesions. Scores NIH Stroke Scale Level of Conciousness: Alert, keenly responsive Ask month/age: Answers both questions correctly. Open/close eyes, close hand: Performs both tasks correctly Best gaze horizontal: Normal Visual martin: No visual loss Facial palsy: Normal symetrical movement Left arm drift: No drift for full 10 sec Right arm drift: No drift for full 10 sec Left leg drift: No drift for full 5 sec Right leg drift: No drift for full 5 sec Limb ataxia: Absent Sensory on face/arms/legs: Normal, no sensory loss Best language: No aphasia, normal Dysarthria: Normal Extinction or inattention: No abnormality Total NIH Stroke scale score: 0 Course Orders Ordered: ED Orders 07/25/21 15:13 EKG-12 Lead Stat 07/25/21 15:30 Complete Blood Count AUTO DIFF Stat Comprehensive Metabolic Panel Stat Lipase Stat Troponin & CK Cardiac Panel Stat 07/25/21 17:39 Trop I [Troponin I] Stat Nicardipine HCl 25 mg/ Sodium (Chloride) 250 mls @ 50 mls/hr IV TITRATE SHALOM; Protocol Vital Signs Vital signs: Vital Signs - 8 hr 07/25/21 13:32 07/25/21 13:56 07/25/21 14:00 Temperature 97.7 F Pulse Rate 54 L 53 L Respiratory Rate 16 18 Blood Pressure 228/106 H Pulse Oximetry 100 88 L 97 07/25/21 14:05 07/25/21 14:30 07/25/21 14:59 Temperature Pulse Rate 51 L 59 L 59 L Respiratory Rate 17 31 H 20 Blood Pressure 247/115 H 161/89 H Pulse Oximetry 100 100 90 L 07/25/21 15:00 07/25/21 15:30 07/25/21 15:33 Temperature Pulse Rate 74 60 61 Respiratory Rate 30 H 24 20 Blood Pressure 145/96 H Pulse Oximetry 90 L 87 L 87 L 07/25/21 16:00 07/25/21 16:28 07/25/21 16:29 Temperature Pulse Rate 53 L 53 L 59 L Respiratory Rate 12 19 18 Blood Pressure 239/108 H Pulse Oximetry 100 100 95 07/25/21 16:30 07/25/21 17:00 07/25/21 17:05 Temperature Pulse Rate 58 L 57 L Respiratory Rate 16 27 H Blood Pressure 160/84 H Pulse Oximetry 99 92 07/25/21 17:30 07/25/21 18:00 07/25/21 18:30 Temperature Pulse Rate 51 L 52 L 52 L Respiratory Rate 15 11 L 11 L Blood Pressure Pulse Oximetry 79 L 99 100 07/25/21 19:00 07/25/21 19:21 07/25/21 19:30 Temperature Pulse Rate 52 L 58 L 51 L Respiratory Rate 13 33 H 15 Blood Pressure 229/104 H Pulse Oximetry 100 100 100 07/25/21 19:32 Temperature Pulse Rate 51 L Respiratory Rate 19 Blood Pressure 215/94 H Pulse Oximetry 100 MDM - Extremity (Nontraumatic) Lab Data Result diagrams: 07/25/21 15:30 07/25/21 15:30 Labs: Lab Results 07/25/21 07/25/21 07/25/21 Range/Units 15:30 15:30 17:39 WBC 9.3 (4.5-11.0) X10^3/uL RBC 4.31 (4.0-5.2) X10^6/uL Hgb 13.1 (12.0-16.0) g/dL Hct 38.2 (36-46) % MCV 88.7 (80-100) fL MCH 30.3 (26-34) PG MCHC 34.1 (30-36) % RDW 13.2 (11.6-14.8) % Plt Count 249 (150-400) X10^3/uL Neut % (Auto) 66.0 (50-75) % Lymph % (Auto) 23.7 L (25-40) % [place]morton % (Auto) 8.9 (3-14) % Eos % (Auto) 0.5 L (2-4) % Baso % (Auto) 0.9 (0-2) % Neut # (Auto) 6100 (9727-7368) /uL Lymph # (Auto) 2200 (9124-9524) /uL [place]morton # (Auto) 800 (0-900) /uL Eos # (Auto) 0 (0-450) /uL Baso # (Auto) 100 (0-100) /uL Sodium 129 L (137-145) mmol/L Potassium 4.2 (3.4-5.1) mmol/L Chloride 95 L (98-107) mmol/L Carbon Dioxide 29 (22-32) mmol/L BUN 22 H (7-17) mg/dL Creatinine 0.94 (0.52-1.04) mg/dL Estimated GFR 56.7 L (>60) mL/min BUN/Creatinine Ratio 23.4 H (6-22) Glucose 91 (80-110) mg/dL Calcium 9.2 (8.4-10.2) mg/dL Total Bilirubin 0.5 (0.2-1.3) mg/dL AST 31 (14-36) IU/L ALT 19 (<35) IU/L Alkaline Phosphatase 89 (38-126) U/L Total Creatine Kinase 67 (30-135) U/L CK-MB (CK-2) TNP CK-MB (CK-2) Rel Index TNP Troponin I 0.055 H 0.055 H (0.01-0.034) ng/mL Total Protein 8.1 (6.3-8.2) g/dL Albumin 4.5 (3.5-5.0) g/dL Globulin 3.6 (1.7-4.1) g/dL Albumin/Globulin Ratio 1.3 (1.0-2.8) Lipase 241 (23-300) U/L ECG Data Interpretation: Normal sinus rhythm rate 53 ME interval 136 QRS [address] changes or T- wave inversions MDM Narrative Medical decision making narrative: Patient initially very resistant for any sort of blood work or evaluation of her extreme hypertension. Finally she did agree to a blood draw and an EKG. Unfortunately troponin is elevated. It was previously normal 1 month ago. It his repeat troponin is exactly the same. Blood pressure seems to be quite variable in the emergency department either very high in the 200s or 160-145. At this time as she has hypertensive with end-organ damage and qualifies for hypertensive emergency. She has had issues with multiple blood pressure medications. Patient's left leg pain is this morning is difficult to tell what was the cause of that. Strokes or typically not painful. She was able to hop around her house and was transferred to get around. His she said that she thinks she twisted it in her sleep but is un short. Pain was also from her knee down. There was no involvement of her arms. She does not have any focal deficits or pain at this time. Dr. Lujan updated patient's symptoms test results and recommends nicardipine drip and ICU admission. Discharge Plan Departure Patient Disposition: Admitted As Inpatient Clinical Impression: Hypertensive emergency Admit Date/Time: 07/25/21 19:40 Admit Provider: Vinita Lujan
[2021-07-25 15:41] LABS: Add Manual Diff / Slide Review NO; Basophils Absolute Auto 100 /uL (0-100); Basophils Percent Auto 0.9 % (0-2); Eosinophils Absolute Auto 0 /uL (0-450); Eosinophils Percent Auto 0.5 % (2-4); Hematocrit 38.2 % (36-46); Hemoglobin 13.1 g/dL (12.0-16.0); Lymphocytes Absolute Auto 2200 /uL (1100-4500); Lymphocytes Percent Auto 23.7 % (25-40); Mean Corpuscular HGB Conc 34.1 % (30-36); Mean Corpuscular Hemoglobin 30.3 PG (26-34); Mean Corpuscular Volume 88.7 fL (80-100); Monocytes Absolute Auto 800 /uL (0-900); Monocytes Percent Auto 8.9 % (3-14); Neutrophils Absolute Auto 6100 /uL (1500-7000); Platelet Count 249 X10^3/uL (150-400); Red Blood Cell Count 4.31 X10^6/uL (4.0-5.2); Red Cell Distribution Width 13.2 % (11.6-14.8); White Blood Cell Count 9.3 X10^3/uL (4.5-11.0)
[2021-07-25 15:54] LABS: Alanine Aminotransferase 19 IU/L (<35); Albumin 4.5 g/dL (3.5-5.0); Albumin Globulin Ratio 1.3 (1.0-2.8); Alkaline Phosphatase 89 U/L (38-126); Aspartate Aminotransferase 31 IU/L (14-36); BUN Creatinine Ratio 23.4 (6-22); Bilirubin Total 0.5 mg/dL (0.2-1.3); Blood Urea Nitrogen 22 mg/dL (7-17); Calcium 9.2 mg/dL (8.4-10.2); Carbon Dioxide 29 mmol/L (22-32); Chloride 95 mmol/L (98-107); Creatine Kinase 67 U/L (30-135); Estimated Glomerular Filt Rate 56.7 mL/min (>60); Globulin 3.6 g/dL (1.7-4.1); Glucose 91 mg/dL (80-110); HEMOLYSIS < 15 (0-50); Lipase 241 U/L (23-300); Potassium 4.2 mmol/L (3.4-5.1); Sodium 129 mmol/L (137-145); Total Protein 8.1 g/dL (6.3-8.2)
[2021-07-25 16:05] LABS: Troponin I 0.055 ng/mL (0.01-0.034)
--- NOTE | 2021-07-25 16:25 | PC.NURSE ---
late note 1350 pt elevated bp, asked to do an EKG, pt declined. stated my dr had to stop my betablocker because of my heart rhythm. I don't want an ekg but i do have a cardiology appt scheduled.
[2021-07-25 18:17] LABS: Troponin I 0.055 ng/mL (0.01-0.034)
[2021-07-25] MEDS: NICARDIPINE 25 MG in SODIUM CHLORIDE 0.9% 240 ML 50 ML IV (19:52)
[2021-07-25 20:24] LABS: Cholesterol 153 mg/dL (140-199); HDL Cholesterol 69 mg/dL (40-60); LDL Cholesterol Calculated 69 mg/dL (<100); Magnesium 1.9 mg/dL (1.6-2.3); Phosphorous 3.4 mg/dL (2.8-4.1); Triglycerides 75 mg/dL (35-150)
[2021-07-25 20:32] LABS: NT-proBNP (BNP-Adult 18+) 2350 pg/mL (<450)
[2021-07-25 20:57] LABS: COVID19 -Nasal RAPID Negative (Negative)
[2021-07-25 21:07] LABS: TSH w/ Reflex to FT4 0.43 uIU/mL (0.47-4.68)
[2021-07-25 21:46] LABS: Free T4, Direct Thyroxine 2.25 ng/dL (0.78-2.19)
--- NOTE | 2021-07-25 21:55 | PM.CN.EICU ---
History of Present Illness Consult details Chief complaint: body wouldn't move this morning :: This patient was seen in the Intensive Care Unit via real time interactive two-way audiovisual telecommunication. Narrative: Patient is an 85F with a PMH of HTN, HLD, Hypothyroidism and Mobitz Type II Heart Block who presented to the ER with pain in her left lower leg. No apparent trauma, swelling, skin changes. While in the ER, was noted to have SBPs in adrian 200s (up toe 240s). Labs checked which noted an elevated troponin. EKG did not reveal STEMI per ER, no her previously seen heart block but due to elevated troponins there was c/f Hypertensive Emergency and patient was started on a Nicardipine drip and admitted to the ICU. Patient denies chest pain, shortness of breath, headache, weakness/numbness or any other symptoms at this time. Reports her leg feels better. States her SBP usually runs in the 200s and she has been off her BP meds as they were thought to be exacerbating her heart block. [facility] Medical History Advanced age Chin laceration Chronic constipation Contusion of left leg Hyperlipidemia Hypertension Hypothyroidism Mobitz type II incomplete atrioventricular block Noncompliance with medication regimen Pelvic floor relaxation (11/23/13) Pelvic floor relaxation Rectal bleeding (2017) Shoulder pain Vaginal atrophy (11/23/13) Vaginal atrophy Vaginal pessary in situ (11/23/13) Surgical History History of colonoscopy (05/04/18) History of colonoscopy with polypectomy (02/22/09) History of surgery on arm (06/08/13) History of third molar tooth extraction (1971) History of tonsillectomy (1966) Family History Mother Gallstones Social History household members: none lives independently: Yes occupational status: previously employed Smoking Status: Former smoker alcohol intake: current Current Medications Current Medications Medications: Home Medications oxyquinoline 0.025 %-sodium lauryl sulfate 0.01 % vaginal gel (Trimo-Kowalski Jelly) 1 applic VAGINAL DIRECTED 03/26/18 [History Confirmed 05/27/21] polyethylene glycol 3350 17 gram/dose oral powder 17 gm PO QDAY #527 gm 06/28/18 [Rx Confirmed 07/25/21] aspirin 81 mg tablet,delayed release 81 mg PO 3XW tab 09/22/18 [History Confirmed 07/25/21] estradiol (Estring) 1 vag ring VAG Q 3 MONTHS #1 each 10/17/20 [Rx Confirmed 05/27/21] lovastatin 20 mg tablet 20 mg PO BEDTIME #90 tab 07/03/21 [Rx Confirmed 07/25/21] levothyroxine 100 mcg tablet 100 mcg PO QDAY #90 tab 07/04/21 [Rx Confirmed 07/25/21] Visit Medications (administered) Generic Name Dose Route Start Last Admin Trade Name Brianq PRN Reason Stop Dose Admin Nicardipine HCl 25 mg/ Sodium 250 mls @ 50 mls/hr 07/25/21 19:45 07/25/21 19:52 Chloride IV 5 mg/hr TITRATE SHALOM 50 mls/hr Administration Protocol 5 MG/HR Exam Vital Signs (past 8 hours): - 07/25/21 13:56 07/25/21 14:00 07/25/21 14:05 Temperature Pulse Rate 53 L 51 L Respiratory Rate 18 17 Blood Pressure 247/115 H Pulse Oximetry 88 L 97 100 07/25/21 14:30 07/25/21 14:59 07/25/21 15:00 Temperature Pulse Rate 59 L 59 L 74 Respiratory Rate 31 H 20 30 H Blood Pressure 161/89 H Pulse Oximetry 100 90 L 90 L 07/25/21 15:30 07/25/21 15:33 07/25/21 16:00 Temperature Pulse Rate 60 61 53 L Respiratory Rate 24 20 12 Blood Pressure 145/96 H Pulse Oximetry 87 L 87 L 100 07/25/21 16:28 07/25/21 16:29 07/25/21 16:30 Temperature Pulse Rate 53 L 59 L 58 L Respiratory Rate 19 18 16 Blood Pressure 239/108 H Pulse Oximetry 100 95 99 07/25/21 17:00 07/25/21 17:05 07/25/21 17:30 Temperature Pulse Rate 57 L 51 L Respiratory Rate 27 H 15 Blood Pressure 160/84 H Pulse Oximetry 92 79 L 07/25/21 18:00 07/25/21 18:30 07/25/21 19:00 Temperature Pulse Rate 52 L 52 L 52 L Respiratory Rate 11 L 11 L 13 Blood Pressure Pulse Oximetry 99 100 100 07/25/21 19:21 07/25/21 19:30 07/25/21 19:32 Temperature Pulse Rate 58 L 51 L 51 L Respiratory Rate 33 H 15 19 Blood Pressure 229/104 H 215/94 H Pulse Oximetry 100 100 100 07/25/21 19:54 07/25/21 20:00 07/25/21 20:10 Temperature Pulse Rate 57 L 62 58 L Respiratory Rate 21 22 10 L Blood Pressure 216/97 H 192/78 H 171/73 H Pulse Oximetry 98 99 100 07/25/21 21:00 Temperature 97.1 F L Pulse Rate 71 Respiratory Rate 18 Blood Pressure 206/87 H Pulse Oximetry 99 Oxygen Delivery Method Room Air Oxygen Flow Rate 0 Narrative Exam Narrative: Patient observed via Tele-monitor Const Other: Awake, in NAD. Laying in bed Eyes Other: No scleral icterus Resp Other: No increased WOB. On room air Cardio Other: Sinus rhythm in 60s. No significant edmea noted Skin Other: Warm, well perfused Neuro Other: Awake, alert. Conversant. Follows commands Extrem Other: RN palpated some swelling behind L knee, no tenderness Psych Other: Calm, cooperative Objective Labs Result Diagrams: 07/25/21 15:30 07/25/21 15:30 Labs: Laboratory Results - last 24 hr 07/25/21 07/25/21 07/25/21 15:30 15:30 15:30 WBC 9.3 RBC 4.31 Hgb 13.1 Hct 38.2 MCV 88.7 MCH 30.3 MCHC 34.1 RDW 13.2 Plt Count 249 Neut % (Auto) 66.0 Lymph % (Auto) 23.7 L [place] % (Auto) 8.9 Eos % (Auto) 0.5 L Baso % (Auto) 0.9 Neut # (Auto) 6100 Lymph # (Auto) 2200 [place] # (Auto) 800 Eos # (Auto) 0 Baso # (Auto) 100 Sodium 129 L Potassium 4.2 Chloride 95 L Carbon Dioxide 29 BUN 22 H Creatinine 0.94 Estimated GFR 56.7 L BUN/Creatinine Ratio 23.4 H Glucose 91 Calcium 9.2 Phosphorus Magnesium Total Bilirubin 0.5 AST 31 ALT 19 Alkaline Phosphatase 89 Total Creatine Kinase 67 CK-MB (CK-2) TNP CK-MB (CK-2) Rel Index TNP Troponin I 0.055 H NT-Pro-B Natriuret Pep Total Protein 8.1 Albumin 4.5 Globulin 3.6 Albumin/Globulin Ratio 1.3 Triglycerides Cholesterol LDL Cholesterol, Calc HDL Cholesterol Lipase 241 TSH 0.43 L Free T4 2.25 H SARS-CoV-2 (PCR) 07/25/21 07/25/21 07/25/21 17:39 17:39 17:39 WBC RBC Hgb Hct MCV MCH MCHC RDW Plt Count Neut % (Auto) Lymph % (Auto) [place] % (Auto) Eos % (Auto) Baso % (Auto) Neut # (Auto) Lymph # (Auto) [place] # (Auto) Eos # (Auto) Baso # (Auto) Sodium Potassium Chloride Carbon Dioxide BUN Creatinine Estimated GFR BUN/Creatinine Ratio Glucose Calcium Phosphorus 3.4 Magnesium 1.9 Total Bilirubin AST ALT Alkaline Phosphatase Total Creatine Kinase CK-MB (CK-2) CK-MB (CK-2) Rel Index Troponin I 0.055 H NT-Pro-B Natriuret Pep 2350 H Total Protein Albumin Globulin Albumin/Globulin Ratio Triglycerides Cholesterol LDL Cholesterol, Calc HDL Cholesterol Lipase TSH Free T4 SARS-CoV-2 (PCR) 07/25/21 07/25/21 17:39 19:24 WBC RBC Hgb Hct MCV MCH MCHC RDW Plt Count Neut % (Auto) Lymph % (Auto) [place] % (Auto) Eos % (Auto) Baso % (Auto) Neut # (Auto) Lymph # (Auto) [place] # (Auto) Eos # (Auto) Baso # (Auto) Sodium Potassium Chloride Carbon Dioxide BUN Creatinine Estimated GFR BUN/Creatinine Ratio Glucose Calcium Phosphorus Magnesium Total Bilirubin AST ALT Alkaline Phosphatase Total Creatine Kinase CK-MB (CK-2) CK-MB (CK-2) Rel Index Troponin I NT-Pro-B Natriuret Pep Total Protein Albumin Globulin Albumin/Globulin Ratio Triglycerides 75 Cholesterol 153 LDL Cholesterol, Calc 69 HDL Cholesterol 69 H Lipase TSH Free T4 SARS-CoV-2 (PCR) Negative Assessment & Plan Assessment & Plan narrative: 85F with a history of HTN, HLD, Mobitz Type II block admitted with Hypertensive Emergency 1. Hypertensive Emergency: end-organ damage suggested by elevated troponins. Patient asymptomatic. Suspect chronically hypertensive. Started on Nicard drip in ER. - Continue Nicardipine drip, goal SBP ~175 (25% decrease within first 24 hours) overnight - Consider TTE (given elevated BNP, trops, history of long-standing hypertension) - Repeat trop/EKG if symptomatic - If HR falls, could consider transition to Nitroglycerin drip if BP control still needed - Obtain UA to eval for microscopic hematuria 2. History of Mobitz Type II (diagnosed by PMD as an outpatient) - pending outpatient Cardiology eval. Sinus rhythm/sinus bradycardia in house - If e/o Mobitz Type II develops, recommend Cardiology consultation. May need transfer for PM placement given high risk for degeneration to complete heart block 3. Left Leg Pain. No history of trauma. Consider DVT, Garcia's Cyst - Consider LLE ultrasound tomorrow 4. Hyponatremia - Chronic per lab review. Asymptomatic - Recommend outpatient workup or urine studies while in house Claire Vanegas Critical Care Medicine Time Spent With Patient Critical Care time: I spent a total of [30] minutes of critical care time on this patient's care today; this time is exclusive of procedural time.
--- NOTE | 2021-07-25 22:13 | PM.HP.1 ---
History of Present Illness History of Present Illness Date Patient Seen: 07/25/21 Time Patient Seen: 20:08 Chief complaint: body wouldn't move this morning Narrative: ?Nasra Osorio is a 85-year-old female history of hypertension, hyperlipidemia, hypothyroidism, Raynaud syndrome, and recent dx of Mobitz type 2 incomplete AV block. Patient originally presented to the ED due to left leg pain that radiated down to her knee. Patient stated she was having pain with weight bearing and ambulation which scared her and so she called her insurance company who advised her to go to the ED.? The pain resolved prior to arrival. In the ED patient was found to have HTN emergency, her blood pressures were very labile, ranging from SBP 160-220, with persistent bradycardia. Patient was reported to be initially resistant to any diagnostic workup or evaluation for her hypertension. Upon admit patient advised that she had been taking atenolol for 22 years which controlled her high blood pressure when she changed providers to Dr. Julio, Dr. Julio wish to switch the patient from a beta-rico in regards to her chronic bradycardia. Patient has tried and failed amlodipine, lisinopril, atenolol, carditone, and is reluctant to medical management, according to PCP notes. Which I personally reviewed. The patient reports that the above-stated medications all made her nauseous to her stomach, decreased appetite, and generally made her feel sick. The last medication tried was clonidine, at her last office visit on 07/09/2021 the patient demonstrated Mobitz type 2 incomplete AV block on EKG with an irregular heart rate, and was referred to Cardiology, appointment is scheduled for August [address] Gupta. The patient tells me that she also changed to a vegetarian diet approximately 44 years ago, which described sounded as a very strict dietary plan, after 5 years the patient lost over 100 lbs, prior weight over 200lbs. When ED provided report patient's vitals were temp 97.7?, BP 215/94, HR 51, R 19, O2 saturation 100% on rm air. Requested the patient be placed on a nicardipine drip, as her EKG demonstrated normal sinus rhythm with a rate of [address] or T-wave changes, or Mobitz 2 heart block. Patient denies chest pain, shortness of breath, headache, blurry vision, weakness, numbness, tingling, difficulty with speech, difficulty swallowing, balance coordination issues, leg pain, abdominal pain, nausea, vomiting, diarrhea, chills, fever, recent illness injury or trauma. Patient's CBC WNL, hyponatremia sodium 129, chloride 95, BUN 22, GFR 56.7 which is patient's baseline, BNP 2350 (asymptomatic), patient had elevated troponins x2 0.055 (asymptomatic). NIH:0 Patient was admitted to the ICU for hypertensive emergency, with bradycardia, and hyponatremia. Patient History Medical History Advanced age Chin laceration Chronic constipation Contusion of left leg Hyperlipidemia Hypertension Hypothyroidism Mobitz type II incomplete atrioventricular block Noncompliance with medication regimen Pelvic floor relaxation (11/23/13) Pelvic floor relaxation Rectal bleeding (2017) Shoulder pain Vaginal atrophy (11/23/13) Vaginal atrophy Vaginal pessary in situ (11/23/13) Surgical History History of colonoscopy (05/04/18) History of colonoscopy with polypectomy (02/22/09) History of surgery on arm (06/08/13) History of third molar tooth extraction (1971) History of tonsillectomy (1966) Family & Social History Family History Mother Gallstones Social History: household members none Prior Living Arrangements Apartment/Condo lives independently Yes Safety & Behavioral: Feels Safe in Current Yes Environment Been Physically Hurt or No Threatened By a Person Suicidal Ideation Description None Suicide Plan Description No Plan Tobacco & Substance use: Tobacco type cigarettes Smoking Status Former smoker alcohol intake current alcohol intake frequency holiday/special occasion Substance Use Type marijuana Meds Home Medications and Allergies Home Medications Medication Instructions Recorded Confirmed Type polyethylene glycol 3350 17 17 gm PO QDAY #527 gm 06/28/18 07/25/21 Rx gram/dose oral powder aspirin 81 mg tablet,delayed 81 mg PO 3XW tab 09/22/18 07/25/21 History release lovastatin 20 mg tablet 20 mg PO BEDTIME #90 tab 07/03/21 07/25/21 Rx levothyroxine 100 mcg tablet 100 mcg PO QDAY #90 tab 07/04/21 07/25/21 Rx Allergies Allergy/AdvReac Type Severity Reaction Status Date / Time Penicillins Allergy unkown due Verified 05/27/21 14:58 to childhood issues Review of Systems Review of Systems Narrative: All 12 point systems reviewed with the patient and are negative except otherwise documented. Exam Vital Signs (past 8 hours): - 07/25/21 14:30 07/25/21 14:59 07/25/21 15:00 Temperature Pulse Rate 59 L 59 L 74 Respiratory Rate 31 H 20 30 H Blood Pressure 161/89 H Pulse Oximetry 100 90 L 90 L 07/25/21 15:30 07/25/21 15:33 07/25/21 16:00 Temperature Pulse Rate 60 61 53 L Respiratory Rate 24 20 12 Blood Pressure 145/96 H Pulse Oximetry 87 L 87 L 100 07/25/21 16:28 07/25/21 16:29 07/25/21 16:30 Temperature Pulse Rate 53 L 59 L 58 L Respiratory Rate 19 18 16 Blood Pressure 239/108 H Pulse Oximetry 100 95 99 07/25/21 17:00 07/25/21 17:05 07/25/21 17:30 Temperature Pulse Rate 57 L 51 L Respiratory Rate 27 H 15 Blood Pressure 160/84 H Pulse Oximetry 92 79 L 07/25/21 18:00 07/25/21 18:30 07/25/21 19:00 Temperature Pulse Rate 52 L 52 L 52 L Respiratory Rate 11 L 11 L 13 Blood Pressure Pulse Oximetry 99 100 100 07/25/21 19:21 07/25/21 19:30 07/25/21 19:32 Temperature Pulse Rate 58 L 51 L 51 L Respiratory Rate 33 H 15 19 Blood Pressure 229/104 H 215/94 H Pulse Oximetry 100 100 100 07/25/21 19:54 07/25/21 20:00 07/25/21 20:10 Temperature Pulse Rate 57 L 62 58 L Respiratory Rate 21 22 10 L Blood Pressure 216/97 H 192/78 H 171/73 H Pulse Oximetry 98 99 100 07/25/21 21:00 Temperature 97.1 F L Pulse Rate 71 Respiratory Rate 18 Blood Pressure 206/87 H Pulse Oximetry 99 Oxygen Delivery Method Room Air Oxygen Flow Rate 0 Narrative Exam Narrative: General: Patient is appears as a thin, small, under nourished female, asymptomatic, in no distress at this time. HEENT: Normocephalic, atraumatic, extraocular muscles intact, oral pharynx is clear and mucous membranes are moist. Neck is supple and symmetric, trachea is midline, no adenopathy, no thyroid enlargement, nontender, no masses palpated. Negative for JVD Chest: no nasal flaring, retractions, or tachypneic labored breathing. Lungs: Auscultation of all lung martin are clear without adventitious sounds, wheezes, rhonchi, or rales. Cardio: S1 & S2 with regular rate and rhythm without murmur, rubs, or gallops, no carotid bruit, no cardiac pulsations present. Abdomen: Soft nontender, negative for organomegaly, or masses. Bowel sounds are present in all 4 quadrants without guarding or rebound, no CVA tenderness. Musculoskeletal: Muscle strength and tone are equal within normal limits, no deformity, crepitus, effusions, cyanosis, clubbing or edema present. Full range of motion intact radial and pedal pulses are normal. Skin: Warm dry and intact without rashes, ulcerations or petechiae. Neuro: Alert and orientated x3, strength is +5/5 in all extremities, sensation to touch intact, no gross deficits noted of cranial nerves. Psych: Patient has a well-kept appearance, appropriate affect, mental status attitude thought context and judgment are appropriate for age. Objective Labs Result Diagrams: 07/25/21 15:30 07/25/21 15:30 Labs: Laboratory Results - last 24 hr 07/25/21 07/25/21 07/25/21 15:30 15:30 15:30 WBC 9.3 RBC 4.31 Hgb 13.1 Hct 38.2 MCV 88.7 MCH 30.3 MCHC 34.1 RDW 13.2 Plt Count 249 Neut % (Auto) 66.0 Lymph % (Auto) 23.7 L [place] % (Auto) 8.9 Eos % (Auto) 0.5 L Baso % (Auto) 0.9 Neut # (Auto) 6100 Lymph # (Auto) 2200 [place] # (Auto) 800 Eos # (Auto) 0 Baso # (Auto) 100 Sodium 129 L Potassium 4.2 Chloride 95 L Carbon Dioxide 29 BUN 22 H Creatinine 0.94 Estimated GFR 56.7 L BUN/Creatinine Ratio 23.4 H Glucose 91 Calcium 9.2 Phosphorus Magnesium Total Bilirubin 0.5 AST 31 ALT 19 Alkaline Phosphatase 89 Total Creatine Kinase 67 CK-MB (CK-2) TNP CK-MB (CK-2) Rel Index TNP Troponin I 0.055 H NT-Pro-B Natriuret Pep Total Protein 8.1 Albumin 4.5 Globulin 3.6 Albumin/Globulin Ratio 1.3 Triglycerides Cholesterol LDL Cholesterol, Calc HDL Cholesterol Lipase 241 TSH 0.43 L Free T4 2.25 H SARS-CoV-2 (PCR) 07/25/21 07/25/21 07/25/21 17:39 17:39 17:39 WBC RBC Hgb Hct MCV MCH MCHC RDW Plt Count Neut % (Auto) Lymph % (Auto) [place] % (Auto) Eos % (Auto) Baso % (Auto) Neut # (Auto) Lymph # (Auto) [place] # (Auto) Eos # (Auto) Baso # (Auto) Sodium Potassium Chloride Carbon Dioxide BUN Creatinine Estimated GFR BUN/Creatinine Ratio Glucose Calcium Phosphorus 3.4 Magnesium 1.9 Total Bilirubin AST ALT Alkaline Phosphatase Total Creatine Kinase CK-MB (CK-2) CK-MB (CK-2) Rel Index Troponin I 0.055 H NT-Pro-B Natriuret Pep 2350 H Total Protein Albumin Globulin Albumin/Globulin Ratio Triglycerides Cholesterol LDL Cholesterol, Calc HDL Cholesterol Lipase TSH Free T4 SARS-CoV-2 (PCR) 07/25/21 07/25/21 17:39 19:24 WBC RBC Hgb Hct MCV MCH MCHC RDW Plt Count Neut % (Auto) Lymph % (Auto) [place] % (Auto) Eos % (Auto) Baso % (Auto) Neut # (Auto) Lymph # (Auto) [place] # (Auto) Eos # (Auto) Baso # (Auto) Sodium Potassium Chloride Carbon Dioxide BUN Creatinine Estimated GFR BUN/Creatinine Ratio Glucose Calcium Phosphorus Magnesium Total Bilirubin AST ALT Alkaline Phosphatase Total Creatine Kinase CK-MB (CK-2) CK-MB (CK-2) Rel Index Troponin I NT-Pro-B Natriuret Pep Total Protein Albumin Globulin Albumin/Globulin Ratio Triglycerides 75 Cholesterol 153 LDL Cholesterol, Calc 69 HDL Cholesterol 69 H Lipase TSH Free T4 SARS-CoV-2 (PCR) Negative Assessment & Plan Assessment & Plan narrative: ?Nasra Osorio is a 85-year-old female history of hypertension, hyperlipidemia, hypothyroidism, Raynaud syndrome, and recent dx of Mobitz type 2 incomplete AV block. Patient originally presented to the ED for left leg pain that resolved prior to arrival. In the ED patient was found to have HTN emergency, her blood pressures were very labile, ranging from SBP 160-220, with persistent bradycardia. Patient admitted for hypertensive emergency with bradycardia and hyponatremia. Patient did not demonstrate Mobitz type to on EKG, or tele currently. Have admitted patient to the ICU with a plan to stabilize her overnight with nicardipine drip, and consult with Cardiology in the morning regarding need for transfer possible pacemaker placement. 1. Hypertensive emergency with bradycardia, recent diagnosis Mobitz type 2 incomplete AV heart block, acute on chronic, present on admission-Uncontrolled -suspect some of the medication issues have to do with patient noncompliance, GI upset. The Mobitz type 2 was only recently diagnosed on 07/09/2021 and it sounds like the patient may have been noncompliant with medications prior to this date. Patient has been found to be resistant to medical interventions by her PCP & ED providers. Pt has elevated troponins that areelevated, but stable. Pt. is asymptomatic, do not believe this to my NSTEMI, but rather demand ischemia/myocardial injury. I discussed with the patient a Cardiology consult and possible pacemaker and she verbalized understanding and agreed to plan of care. -hypertensive with end-organ damage and qualifies for hypertensive emergency -Admitted to ICU/tele monitoring -nicardipine drip goal in the 1st 24 hours to SBP 180-170: about 24% decrease. If drops < SBP 170 for >30min-Hold drip -If HR gets too low can switch to Nitroglycerin drip -If pt develops Mobitz II-will consult cardiology immediately, and arrange for transfer. -Troponin x 2: 0.055- will trend (pt is asymptomatic, do not believe this to my NSTEMI, but rather demand ischemia/myocardial injury) -Placed consult for Dr. Gupta: He will be called in AM. -Tele-ICU High Pressure Kettle Operator consult: Dr. Vanegas -ASA 81 mg q.day 2. Hyponatremia, acute, present on admission -admitting sodium 129 -gentle rehydration: NS@42cc/hr -Monitor for fluid overload 3. Hyperlipidemia, mixed, chronic, present on admission -lipid panel ordered -continue lovastatin 4. Hypothyroidism, acquired, chronic, present on admission -TSH with reflex T4 ordered -continue levothyroxine 5. Chronic constipation, chronic, present on admission -continue MiraLax 6. Raynaud syndrome, chronic, present on admission -continue pain management 7. Malnourished as evidence by BMI of 20.1, acute on chronic, present on admission -this is intentional weight loss -strict vegetarian diet Code status:DNR/DNI Surrogate decision maker: Keiko MCDANIELS PCR:Negative COVID vaccination: Unknown DVT/VTE prophylaxis: Lovenox and SCDs Disposition: I have utilized all available immediate resources to obtain, update, or review the patient's current medications. Exception-the patient is not eligible for medication reconciliation; the patient is in an emergent medical situation were delaying treatment would jeopardize the patient's health. I confirmed that the patient's advanced care plan is present, Code status is documented and/or surrogate decision maker is listed in the patient's medical record. Time Spent With Patient Critical Care time: I spent a total of [] minutes of critical care time on this patient's care today; this time is exclusive of procedural time. Quality VTE Deep Vein Thrombosis/Pulmonary Embolism Present on Admission: No
[2021-07-25] MEDS: SODIUM CHLORIDE 0.9% 1,000 ML 42 ML IV (22:46)
[2021-07-25] MEDS: ATORVASTATIN 20 MG TABLET 10 MG PO (22:47)
[2021-07-25] MEDS: MELATONIN 3 MG TABLET 6 MG PO (22:57)
[2021-07-26] VITALS (23 sets, daily range): BP systolic 112–199; BP diastolic 69–129; PULSE 41–55; RESP 7–46; TEMP 36.4–37.1; O2SAT 97–100
[2021-07-26] MEDS: ACETAMINOPHEN 325 MG TABLET 650 MG PO (03:17)
--- NOTE | 2021-07-26 04:49 | PC.NURSE ---
0400- Patient has been off the Nicardipine gtt since 2329. BP has remained with in target. Patient did c/o headache and was medicated per order. Patient has been bradycardic but so far has not had any Mobitz II. Will monitor.
[2021-07-26 06:31] LABS: INR 1.1 (0.9-1.3); Prothrombin Time 12.1 SECONDS (10.1-12.7)
[2021-07-26 06:34] LABS: PTT Partial Thromboplastin Tim 29 SECONDS (26.4-36.2)
[2021-07-26 06:35] LABS: D Dimer 882 ng/mL (<230)
[2021-07-26 06:38] LABS: Alanine Aminotransferase 15 IU/L (<35); Albumin 3.6 g/dL (3.5-5.0); Albumin Globulin Ratio 1.2 (1.0-2.8); Alkaline Phosphatase 74 U/L (38-126); Aspartate Aminotransferase 25 IU/L (14-36); BUN Creatinine Ratio 19.5 (6-22); Bilirubin Total 0.5 mg/dL (0.2-1.3); Blood Urea Nitrogen 16 mg/dL (7-17); Carbon Dioxide 28 mmol/L (22-32); Chloride 100 mmol/L (98-107); Estimated Glomerular Filt Rate > 60.0 mL/min (>60); Glucose 91 mg/dL (80-110); HEMOLYSIS < 15 (0-50); Potassium 3.9 mmol/L (3.4-5.1); Sodium 131 mmol/L (137-145); Total Protein 6.6 g/dL (6.3-8.2)
[2021-07-26] MEDS: LEVOTHYROXINE 100 MCG TABLET PO (06:42)
[2021-07-26 06:49] LABS: Troponin I 0.056 ng/mL (0.01-0.034)
--- NOTE | 2021-07-26 12:20 | CM.IDA ---
Initial DCP Assessment Note Pt is an 85 yo female, resident at [facility] in [place], arrives complaining body wouldn't move this morning H+P: Patient admitted for hypertensive emergency with bradycardia and hyponatremia PCP: Inez Julio Payer: Richi MORENO MCR/NABIL Reviewed chart, pt discussed in multidisciplinary rounds this morning. Patient medically stable for DC today; home via family transport, patient has returned to baseline. Plan: home via dtr to transport, close outpatient f/u recommended KAYLEE Funez Discharge Planning/Care Management CM Discharge Assessment Start: 07/26/21 12:08 Freq: Status: Discharge Protocol: Document 07/26/21 12:08 SATNAM (Rec: 07/26/21 12:19 SATNAM [id number]) Discharge Planning Assessment Assigned Liability Claims Examiner KAYLEE Palmer DPOA/Assigned Designee Name Keiko Armond dtr Contact Information [phone] Advance Directives? Yes Advance Directives on File No History Provided By Patient,Medical Record Prior Living Arrangements Apartment/Condo Household Members none Type of transporation used prior to Drives own vehicle admit Independent with ADL's Yes Is patient alert and oriented? Yes Discharge Plan Home Transportation Arrangement Dtr Referrals Initiated None needed
--- NOTE | 2021-07-26 18:31 | P.DS_ITS ---
History of Present Illness History of Present Illness Chief complaint: body wouldn't move this morning Narrative: 85-year-old female history of hypertension, hyperlipidemia, hypothyroidism, Raynaud syndrome, and recent dx of Mobitz type 2 incomplete AV block. Patient originally presented to the ED due to left leg pain that radiated down to her knee.? Patient stated she was having pain with weight bearing and ambulation which scared her and so she called her insurance company who advised her to go to the ED.? The pain resolved prior to arrival. In the ED patient was found to have HTN emergency, her blood pressures were very labile, ranging from SBP 160-220, with persistent bradycardia. Patient was reported to be initially resistant to any diagnostic workup or evaluation for her hypertension.? Upon adm it patient advised that she had been taking atenolol for 22 years which controlled her high blood pressure when she changed providers to Dr. Julio, Dr. Julio wish to switch the patient from a beta-rico in regards to her chronic bradycardia. Patient has tried and failed amlodipine, lisinopril, atenolol, carditone, and is reluctant to medical management, according to PCP notes. Which I personally reviewed.? The patient reports that the above-stated medications all made her nauseous to her stomach, decreased appetite, and generally made her feel sick.? The last medication tried was clonidine, at her last office visit on 07/09/2021 the patient demonstrated Mobitz type 2 incomplete AV block on EKG with an irregular heart rate, and was referred to Cardiology, appointment is scheduled for August [address] Gupta.? The patient tells me that she also changed to a vegetarian diet approximately 44 years ago, which described sounded as a very strict dietary plan, after 5 years the patient lost over 100 lbs, prior weight over 200lbs. When ED provided report patient's vitals were temp 97.7?, BP 215/94, HR 51, R 19, O2 saturation 100% on rm air.? Requested the patient be placed on a nicard ipine drip, as her EKG demonstrated normal sinus rhythm with a rate of [address] or T-wave changes, or? Mobitz 2 heart block. Patient denies chest pain, shortness of breath, headache, blurry vision, weakness, numbness, tingling, difficulty with speech, difficulty swallowing, balance coordination issues, leg pain, abdominal pain, nausea, vomiting, diarrhea, chills, fever, recent illness injury or trauma.? Patient's CBC WNL, hyponatremia sodium 129, chloride 95, BUN 22, GFR 56.7 which is patient's baseline, BNP 2350 (asymptomatic), patient had elevated troponins x2 0.055 (asymptomatic).? NIH:0 Patient was admitted to the ICU for hypertensive emergency, with bradycardia, and hyponatremia. ? Discharge Providers Provider Date of admission: 07/25/21 19:40 Discharge Date: 07/26/21 Primary care physician: KELVIN Brownlee Consults: 07/25/21 19:49 Consult to Tele-electric motor repairing supervisor Routine Comment: Consulting Provider: Elsa Tele-intensivists Reason for consultation: Nuclear Weapons Specialist services Has provider been notified: No 07/25/21 20:02 Consult to Physician Routine Comment: Consulting Provider: Bertha Gupta Reason for consultation: HTN Emergency, Mobitz II w/Bradycardia Has provider been notified: No Discharge provider: Kevno Jamison MD Summary Hospital Course Discharge Diagnosis: 1. Chronic severe labile hypertension 2. History of Mobitz 2 av block 3. Acute left leg pain resolved 4. Hypothyroidism, possibly over replaced Hospital Course: Patient presented initially due to left leg pain and noted to have severe elevated blood pressures in range of 220/100. She was initially put on nicardipine drip but then dropped her blood pressure too much and it was discontinued. Patient states she has longstanding hypertension for at least the last couple of decades. She has been on multiple different medications with various side effects. She states that atenolol worked the best for her although with admitted poor control. She was recently found to have severe bradycardia with Mobitz 2 av block on outpatient clinic EKG. She has cardiology appointment with Dr. Gupta on August 08. Patient stayed in sinus bradycardia and did not exhibit any AV block on telemetry here. Heart rate stayed around 50 beats per minute. Her blood pressures remained quite labile but again this is her normal for the past 20+ years. She should probably have outpatient echo. Her recent outpatient urinalysis did not reveal microscopic hematuria. We discussed her getting back on beta-rico such as carvedilol if she has a pacemaker put in. She does appear mildly over replaced on thyroid therapy with TSH 0.43 and mildly elevated free T4 of 2.25. I hesitated to reduce her thyroid dose with her severe bradycardia. She should have thyroid profile rechecked in a month and dose adjusted if needed. In regards to her presenting complaint of left leg pain this completely resolved on its own. Status at Discharge Overall status at discharge: patient is progressing back to baseline Time Spent with Patient Time spent: Greater than 30 minutes Exam Vital Signs (past 8 hours): Oxygen Delivery Method Room Air Oxygen Flow Rate 0 Narrative Exam Narrative: General: Alert NAD Heart: Regular rhythm bradycardic Extremity: No edema Neurological: Alert and fully oriented Objective Labs Result Diagrams: 07/25/21 15:30 07/26/21 06:14 Labs: Laboratory Results - last 24 hr 07/25/21 07/25/21 07/25/21 15:30 17:39 17:39 PT INR APTT D-Dimer Sodium Potassium Chloride Carbon Dioxide BUN Creatinine Estimated GFR BUN/Creatinine Ratio Glucose Calcium Phosphorus 3.4 Magnesium 1.9 Total Bilirubin AST ALT Alkaline Phosphatase Troponin I NT-Pro-B Natriuret Pep 2350 H Total Protein Albumin Globulin Albumin/Globulin Ratio Triglycerides Cholesterol LDL Cholesterol, Calc HDL Cholesterol TSH 0.43 L Free T4 2.25 H SARS-CoV-2 (PCR) 07/25/21 07/25/21 07/26/21 17:39 19:24 06:14 PT 12.1 INR 1.1 APTT 29 D-Dimer Sodium Potassium Chloride Carbon Dioxide BUN Creatinine Estimated GFR BUN/Creatinine Ratio Glucose Calcium Phosphorus Magnesium Total Bilirubin AST ALT Alkaline Phosphatase Troponin I NT-Pro-B Natriuret Pep Total Protein Albumin Globulin Albumin/Globulin Ratio Triglycerides 75 Cholesterol 153 LDL Cholesterol, Calc 69 HDL Cholesterol 69 H TSH Free T4 SARS-CoV-2 (PCR) Negative 07/26/21 07/26/21 07/26/21 06:14 06:14 06:14 PT INR APTT D-Dimer 882 H Sodium 131 L Potassium 3.9 Chloride 100 Carbon Dioxide 28 BUN 16 Creatinine 0.82 Estimated GFR > 60.0 BUN/Creatinine Ratio 19.5 Glucose 91 Calcium 9.0 Phosphorus Magnesium Total Bilirubin 0.5 AST 25 ALT 15 Alkaline Phosphatase 74 Troponin I 0.056 H NT-Pro-B Natriuret Pep Total Protein 6.6 Albumin 3.6 Globulin 3.0 Albumin/Globulin Ratio 1.2 Triglycerides Cholesterol LDL Cholesterol, Calc HDL Cholesterol TSH Free T4 SARS-CoV-2 (PCR) [facility] Medical History Advanced age Chin laceration Chronic constipation Contusion of left leg Hyperlipidemia Hypertension Hypothyroidism Mobitz type II incomplete atrioventricular block Noncompliance with medication regimen Pelvic floor relaxation (11/23/13) Pelvic floor relaxation Rectal bleeding (2018) Shoulder pain Vaginal atrophy (11/23/13) Vaginal atrophy Vaginal pessary in situ (11/23/13) Surgical History History of colonoscopy (05/04/18) History of colonoscopy with polypectomy (02/22/09) History of surgery on arm (06/08/13) History of third molar tooth extraction (1971) History of tonsillectomy (1966) Family History Mother Gallstones Social History household members: none lives independently: Yes occupational status: previously employed Smoking Status: Former smoker alcohol intake: current Discharge Plan Discharge Plan Patient Disposition: Home Provider Discharge Comment: You were admitted due to concerning elevated blood pressures. This is a chronic condition and less urgent than initially thought. You have appointment on August [address] Gupta for pacemaker due to history of Mobitz 2 block. I suggest getting started on beta rico therapy after you have pacemaker placement. Additionally your thyroid levels are mildly out of range (low TSH, high T4). Recommend to recheck thyroid blood tests in about a month. Discharge orders & Medications Prescriptions: Continued polyethylene glycol 3350 17 gram/dose powder 17 gm PO QDAY Qty: 527 3RF lovastatin 20 mg tablet 20 mg PO BEDTIME Qty: 90 3RF levothyroxine 100 mcg tablet 100 mcg PO QDAY Qty: 90 3RF aspirin 81 mg tablet,delayed release (DR/EC) 81 mg PO 3XW 0RF Follow up/Referrals: Inez Julio ARNP [Primary Care Provider] - Diet/Activity/Treatments Diet: Regular Visit Report/Discharge Packet Instructions: Essential Hypertension, DI for Bradycardia Discharge Data Primary Care Provider: Inez Julio Attending Provider: Vinita Lujan VTE Deep Vein Thrombosis/Pulmonary Embolism Present on Admission: No
== END 2021-07-26 10:30 | disposition home or self-care (01) ==
LOC: ED 19:38 → AC 20:20 → ICU 07-26 07:55 → AC 07-26 12:47
PROVIDERS: Nurse Practitioner Family; Admitting Provider Internal Medicine; Emergency Provider Emergency Medicine; PCP Nurse Practitioner; Referring Provider Emergency Medicine; Visit Provider Internal Medicine
DX: I16.1 Hypertensive emergency (principal); M79.605 Pain in left leg; I5A Non-ischemic myocardial injury (non-traumatic); E87.1 Hypo-osmolality and hyponatremia; I44.1 Atrioventricular block, second degree; R00.1 Bradycardia, unspecified; R29.700 NIHSS score 0; I10 Essential (primary) hypertension; E78.5 Hyperlipidemia, unspecified; E03.9 Hypothyroidism, unspecified; I73.00 Raynaud's syndrome without gangrene; Z20.822 Contact with and (suspected) exposure to COVID-19
CPT/HCPCS: 36415; 80053; 80061; 82550; 83690; 83735; 83880; 84100; 84439; 84443; 84484; 85025; 85379; 85610; 85730; 87635; 93005; 96365; 96366; 99284; C9803; G0378

== ENCOUNTER → 2021-10-30 13:20 | Outpatient (CLI) | payer MEDICARE, MEDICAID, SELFPAY ==
[2021-07-25 21:43] VITALS: BMI 20.1
--- NOTE | 2021-10-30 | DI.ECHO.S_ITS ---
[facility]---------+ [facility] +---------+ : : [address] : : : : [id number] : : : : Phone: [phone]+ Echocardiogram Report + + :Name: RADHA TILLMAN Study Date: 10/30/2021 Height: 63 in : :[facility] ReadingLocation: Weight: 113 lb : : Gender: Female BSA: 1.5 m2 : :: 1935 Age: 86 yrs BP: 168/85 mmHg: :Reason For Study: BRADYCARDIA, CHEST PAIN : :Ordering Physician: ESTELLE, : :DOUGLAS Performed By: Luh Carbajal : :Referring: DOUGLAS GUPTA : + + Interpretation Summary 1) Normal left ventricular size, thickness, wall motion, and systolic function (EF 60-65%). 2) Normal right ventricular size and function. 3) The left atrium is severely dilated. 4) No significant valvular abnormalities. 5) Hypertension present during the study (BP 168/85mmHg). 6) No prior Echo available for comparison. Procedure: A two-dimensional transthoracic echocardiogram with color flow and Doppler was performed. The study quality was technically adequate. There is no prior echocardiogram noted for this patient. The patient was in sinus bradycardia with heart rates between 44-65 bpm during the exam. Left Ventricle: The left ventricle is normal in size and wall thickness. The ejection fraction is estimated to be 60-65%. Left ventricular systolic function appears normal without focal wall motion abnormalities. Diastolic parameters suggest a relaxation abnormality of the left ventricle, consistent with probable normal filling pressures. Right Ventricle: The right ventricle is normal in size and function. Atria: The left atrium is severely dilated. The right atrium is mildly dilated. There is no Doppler evidence for an interatrial shunt. Mitral Valve: The mitral valve is normal in structure and function. There is mild mitral regurgitation. Aortic Valve: The aortic valve is trileaflet. The aortic valve opens well. There is no aortic valve stenosis. No aortic regurgitation is present. Tricuspid Valve: The tricuspid valve is normal in structure and function. There is trace tricuspid regurgitation. The right ventricular systolic pressure is estimated to be at least 31 mmHg based on an estimated right atrial pressure of 3 mm Hg. Pulmonic Valve: The pulmonic valve leaflets are thin and pliable; valve motion is normal. There is mild pulmonic regurgitation. Great Vessels: The aortic root is normal size. The ascending aorta could not be visualized. The IVC is of normal diameter and collapses greater than 50% with a sniff. This suggests a low right atrial pressure of 3 mm Hg. Pericardium/ Pleura There is no pericardial effusion. There is no pleural effusion. MMode/2D Measurements & Calculations LVIDd: 4.1 cm LVOT diam: 2.0 cm LVIDs: 2.7 cm Ao root diam: 2.7 cm FS: 34.7 % Ao Arch Diam (Prox Trans): 2.5 cm IVSd: 0.99 cm LVPWd: 0.89 cm LV raman. diameter/BSA (cm/m^2): 2.7 LV sys. diameter/BSA (cm/m^2): 1.8 LA A2 area: 28.6 cm2 RA long axis: 5.2 cm LA A4 area: 28.4 cm2 RA area: 18.0 cm2 LA length (vol): 6.0 cm RA vol: 52.9 ml LA vol: 114.9 ml RA : 34.8 ml/m2 LA vol index: 75.6 ml/m2 IVC diam: 1.1 cm RVD1 (basal): 3.9 cm RVD2 (mid): 3.1 cm TAPSE: 2.3 cm Doppler Measurements & Calculations Ao V2 max: 143.2 cm/sec LVOT Max Nahid: 126.4 cm/sec Ao V2 mean: 99.1 cm/sec LV V1 max P.4 mmHg Ao max P.2 mmHg LV V1 VTI: 26.9 cm Ao mean P.4 mmHg VINNY(I,D): 2.4 cm2 Ao V2 VTI: 36.2 cm VINNY(V,D): 2.9 cm2 sev ratio: 0.74 VINNY indexed to BSA (cm^2/m^2): 1.6 MV E max nahid: 83.7 cm/sec TR max nahid: 266.0 cm/sec MV A max nahid: 62.2 cm/sec TR max P.3 mmHg MV E/A: 1.3 PA V2 max: 104.1 cm/sec Med Peak E' Nahid: 6.1 cm/sec PA V2 mean: 73.5 cm/sec E/E' med: 13.6 PA mean P.4 mmHg Lat Peak E' Nahid: 7.7 cm/sec PA pr(Accel): 19.1 mmHg E/E' lat: 10.9 E/e' average: 12.3 MV dec time: 0.23 sec SV(LVOT): 87.3 ml Reading Physician:03:54 PM
--- NOTE | 2021-10-30 15:18 | PM.TREADMILL ---
Cardiac Stress Test Report Referral & Results Date Patient Seen: 10/30/21 Time Patient Seen: 15:18 Requesting provider: Bertha Gupta Indication: chest pain Rest ECG: Sinus rhythm Procedure Note: Standard Teddy protocol, 3:37 mins, 4.1 METS Reduced exercise capacity, BRITTNEY +5% Normal hemodynamic response to exercise No chest pain or anginal symptoms No significant ST changes at peak exercise Frequent PVCs, couplets Impression: Normal exercise stress test Please note: Actual ECG tracings can be found in the PACS system.
--- NOTE | 2021-10-30 21:09 | DI.NM.S_ITS ---
DATE OF SERVICE: 10/30/2021 PROCEDURE PERFORMED: Exercise treadmill stress test without imaging. ORDERING PROVIDER: Dr. William Gupta. INDICATIONS: The patient is an 85-year-old female with a history of chest discomfort and bradycardia. FINDINGS: 1. The patient was able to exercise for 3 minutes, 57 seconds on a standard Teddy protocol, suggesting mildly impaired exercise capacity with an BRITTNEY of +5%, achieving 4.1 METs. 2. She had a slightly blunted heart rate response to exercise with a resting heart rate of 65 BPM, increasing to a maximum of 113 BPM (84% of her predicted maximum). 3. She had a normal blood pressure response. 4. She had no chest pain or other anginal symptoms. 5. Her resting ECG shows sinus rhythm with occasional PVCs, occasionally in a bigeminal pattern, that resolves with rest. Resting ST-segments are normal and there are no obvious ST-segment shifts with exercise or in recovery, although there is a return of PVCs, often with ventricular bigeminy, but no other complex ventricular ectopy. IMPRESSION: 1. Normal exercise treadmill study for ischemia. 2. Mildly impaired exercise capacity with a mildly blunted chronotropic response to exercise. She had occasional PVCs at rest, occasionally in a bigeminal pattern that resolved with stress, but returned in recovery with more persistent ventricular bigeminy, but no other complex arrhythmias. DevonNasra parekh - Lis/lana doc#: [id number]/job#: [id number] dd: 10/30/2021 16:57:00 dt: 10/30/2021 20:32:00 DICTATING MD/COPIES TO: Nehemiah Mukherjee MD; Bertha Gupta MD COPIES MNE: SARA;
== END ==
PROVIDERS: PCP Nurse Practitioner; Referring Provider Internal Medicine Cardiovascular Disease; Visit Provider Internal Medicine Cardiovascular Disease
DX: I34.0 Nonrheumatic mitral (valve) insufficiency (principal); I37.1 Nonrheumatic pulmonary valve insufficiency; R07.89 Other chest pain; R00.1 Bradycardia, unspecified
CPT/HCPCS: 93017; 93306

== ENCOUNTER → 2021-11-19 10:13 | Outpatient (CLI) | payer MEDICARE, MEDICAID, SELFPAY ==
[2021-07-25 21:43] VITALS: BMI 20.1
[2021-11-19 11:12] LABS: BUN Creatinine Ratio 18.8 (6-22); Blood Urea Nitrogen 16 mg/dL (7-17); Calcium 9.2 mg/dL (8.4-10.2); Carbon Dioxide 27 mmol/L (22-32); Chloride 93 mmol/L (98-107); Estimated Glomerular Filt Rate > 60 mL/min (>60); Glucose 85 mg/dL (80-110); HEMOLYSIS < 15 (0-50); Potassium 4.1 mmol/L (3.4-5.1); Sodium 129 mmol/L (137-145)
== END ==
PROVIDERS: PCP Nurse Practitioner; Referring Provider Internal Medicine Cardiovascular Disease; Visit Provider Internal Medicine Cardiovascular Disease
DX: I10 Essential (primary) hypertension (principal)
CPT/HCPCS: 36415; 80048

== ENCOUNTER → 2021-12-20 09:59 | Outpatient (CLI) | payer MEDICARE, MEDICAID, SELFPAY ==
[2021-07-25 21:43] VITALS: BMI 20.1
[2021-12-20 12:45] LABS: BUN Creatinine Ratio 20.4 (6-22); Blood Urea Nitrogen 21 mg/dL (7-17); Calcium 8.9 mg/dL (8.4-10.2); Carbon Dioxide 27 mmol/L (22-32); Chloride 88 mmol/L (98-107); Estimated Glomerular Filt Rate 53 mL/min (>60); Glucose 85 mg/dL (80-110); HEMOLYSIS < 15 (0-50); Sodium 124 mmol/L (137-145)
[2021-12-20 13:13] LABS: Thyroid Stimulating Hormone 1.08 uIU/mL (0.47-4.68)
== END ==
PROVIDERS: PCP Nurse Practitioner; Referring Provider Internal Medicine Cardiovascular Disease; Visit Provider Internal Medicine Cardiovascular Disease
DX: E87.1 Hypo-osmolality and hyponatremia (principal); E03.9 Hypothyroidism, unspecified
CPT/HCPCS: 36415; 80048; 84443

== ENCOUNTER 2022-05-23 13:00 | Outpatient (RCR) | payer MEDICARE, MEDICAID, SELFPAY ==
[2021-07-25 21:43] VITALS: BMI 20.1
--- NOTE | 2022-02-25 11:15 | PT.OIE ---
Current Diagnoses Cervicalgia (02/25/22) Headache, unspecified (02/25/22) Past Medical History (Last Updated 01/16/22 @ 07:37 by KELVIN Brownlee) Advanced age Chin laceration Chronic constipation Contusion of left leg Hyperlipidemia Hypertension Hypertensive emergency Hyponatremia Hypothyroidism Mobitz type II incomplete atrioventricular block Noncompliance with medication regimen Pelvic floor relaxation (11/23/13) Pelvic floor relaxation Peripheral neuropathy Rectal bleeding (2017) Shoulder pain Vaginal atrophy (11/23/13) Vaginal atrophy Vaginal pessary in situ (11/23/13) Past Surgical History (Last Reviewed 01/15/22 @ 14:35 by KELVIN Brownlee) History of colonoscopy (05/04/18) History of colonoscopy with polypectomy (02/22/09) History of surgery on arm (06/08/13) History of third molar tooth extraction (1971) History of tonsillectomy (1966) Visit Care Team Role Provider Type KELVIN Brownlee Attending Provider Advanced Computer Typesetter Family Provider Primary Care Provider Referring Provider Specialty: Family Practice Address: [address] [place] [address] Email: [email or web address] Therapy Initial Evaluation PT-OP-A Visit Information Start: 02/24/22 15:55 Freq: Status: Active Protocol: Document 02/25/22 11:19 AMB (Rec: 02/27/22 12:44 AMB [id number]) Out-Patient Physical Therapy Visit Information Visit Information Visit Type Initial Evaluation Visit Start Time 11:15 Visit Stop Time 12:00 Total Visit Minutes 45 Visit Number 1 PT-OP-B Current Condition Start: 02/24/22 15:55 Freq: Status: Active Protocol: Document 02/25/22 11:19 AMB (Rec: 02/25/22 11:34 AMB [id number]) Current Condition History of Current Condition Onset Date 1-1.5 years Current Complaints neck pain and headaches History of Current Condition Headaches towards the end of the day. 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 Thinks she clenches her jaw a lot with dentures. Knitting/ reading and looking down to do so exacerbates her sx. Smoke marijuana to fall asleep. Anytime I've been sitting knitting and reading the headache starts, denies eye strain. Bilateral temples. Bilateral upper traps is where neck pain is. Lying on the floor helps the neck, difficult to get up from the floor. Goes on 1 mile-2 mile walk/ day. Holding the book up higher does seem to help the neck/headache. Used to do yoga before the pandemic, but can't really afford classes. Treatment Goals Patient/Caregiver Goals Reduce neck pain/headache Prior Functional Status Baseline Function- ADL's Modified Independent Baseline Function- Mobility Modified Independent Current Functional Impairments (Reported) Functional Limitations- ADL's Difficulty enjoying hobbies: reading and knitting Personal Factors Other Personal Factors That May Effect Bilateral shoulder dysfunction Therapy/Recovery with poor flexion/abduction over shoulder height, poor technical support representative strength. Peripheral neuropathy. PT-OP-J Posture/Palpation/Skin Start: 02/24/22 15:55 Freq: Status: Active Protocol: Document 02/25/22 11:19 AMB (Rec: 02/27/22 12:44 AMB [id number]) Posture Evaluation Comments Posture Comments Flat cervical spine, hypertonicity of upper trapezius Palpation Assessment Location One Palpation Location Neck Palpation Findings Soft Tissue Tightness,Spasm, Muscle Guarding,Tenderness Palpation Details Tightness at upper traps, suboccipitals PT-OP-K Range of Motion Start: 02/24/22 15:55 Freq: Status: Active Protocol: Document 02/25/22 11:15 AMB (Rec: 02/26/22 15:29 AMB [id number]) Cervical Spine Range of Motion Cervical Spine Active Degrees Testing Position Sitting Flexion 50 Extension 27 Rotation Left 34 Rotation Right 32 Lateral Flexion Left 15 Lateral Flexion Right 10 ROM Limitations Soft Tissue Tightness,Bony Restriction,Pain PT-OP-T Assessment and Plan Start: 02/24/22 15:55 Freq: Status: Active Protocol: Document 02/25/22 11:19 AMB (Rec: 02/27/22 12:44 AMB [id number]) Physical Therapy Assessment Rehab Potential Rehabilitation Potential Good Evaluation Complexity Number of Personal Factors/Comorbidities 1-2 Number of Body Systems Impaired 4 or More Clinical Presentation at Evaluation Stable Impairments Impairments Functional Activities,Pain, Posture,Strength Goals Two Impairment pain Short Term Goal (STG) Ollie will read for 30 minutes without an increase in baseline pain. STG Duration 4 weeks [facility] Goal (LTG) Ollie will sit with good posture using props as needed for assistance for one hour without a headache. LTG Duration 8 weeks One Impairment ROM Short Term Goal (STG) Ollie will improve her active cervical rotation to bilaterally 40 degrees. STG Duration 4 weeks [facility] Goal (LTG) Ollie will improve her cervical extension to at least 40 degrees. LTG Duration 8 weeks Assessment Summary Assessment Ollie attends physical therapy with significant stiffness and muscular stiffness in her cervical spine that is increasing her neck pain and contributing to headaches, worst with extenended cervical flexion to read and knit. She responded well to stretching and manual therapy to improve the flexibility of the posterior cervical spine. Her chronic shoulder dysfunction will be a limiting factor, considering that it is so difficult to lift her shoulders above shoulder height, she has a habit of over use of her upper traps. Physical Therapy Plan Frequency and Duration Frequency of Treatment 2x/Week Duration of treatment (weeks) 12 Plan of Care Start Date 02/25/22 Plan of Care End Date 05/20/22 Therapeutic Interventions Therapeutic Interventions Home Exercise Program,Joint Mobilizations,Manual Therapy, Neuromuscular Re-education, Self-Care/Home Management, Therapeutic Activities, Therapeutic Exercises Modalities Cold Pack/Ice Massage,Electric Stimulation,Hot Packs, Traction- Mechanical Next Visit Focus/Plan Next Note Type Treatment Note Next Visit Plan Focus on rotation ROM, reducing muscular tension in the posterior neck, improving strength in anterior cervical musculature
--- NOTE | 2022-02-25 12:46 | PT.OPPOC ---
Physical, Occupational & Speech Therapy At [facility] Current Diagnoses Cervicalgia (02/25/22) Headache, unspecified (02/25/22) Visit Care Team Role Provider Type KELIVN Brownlee Attending Provider Advanced Glaze Sprayer Family Provider Primary Care Provider Referring Provider Specialty: Family Practice Address: [address] [place] [address], [facility] Email: [email or web address] Plan Of Care PT-OP-T Assessment and Plan Start: 02/24/22 15:55 Freq: Status: Active Protocol: Document 02/25/22 11:19 AMB (Rec: 02/27/22 12:44 AMB [id number]) Physical Therapy Assessment Rehab Potential Rehabilitation Potential Good Evaluation Complexity Number of Personal Factors/Comorbidities 1-2 Number of Body Systems Impaired 4 or More Clinical Presentation at Evaluation Stable Impairments Impairments Functional Activities,Pain, Posture,Strength Goals Two Impairment pain Short Term Goal (STG) Ollie will read for 30 minutes without an increase in baseline pain. STG Duration 4 weeks Care Home Goal (LTG) Ollie will sit with good posture using props as needed for assistance for one hour without a headache. LTG Duration 8 weeks One Impairment ROM Short Term Goal (STG) Ollie will improve her active cervical rotation to bilaterally 40 degrees. STG Duration 4 weeks Care Home Goal (LTG) Ollie will improve her cervical extension to at least 40 degrees. LTG Duration 8 weeks Assessment Summary Assessment Ollie attends physical therapy with significant stiffness and muscular stiffness in her cervical spine that is increasing her neck pain and contributing to headaches, worst with extenended cervical flexion to read and knit. She responded well to stretching and manual therapy to improve the flexibility of the posterior cervical spine. Her chronic shoulder dysfunction will be a limiting factor, considering that it is so difficult to lift her shoulders above shoulder height, she has a habit of over use of her upper traps. Physical Therapy Plan Frequency and Duration Frequency of Treatment 2x/Week Duration of treatment (weeks) 12 Plan of Care Start Date 02/25/22 Plan of Care End Date 05/20/22 Therapeutic Interventions Therapeutic Interventions Home Exercise Program,Joint Mobilizations,Manual Therapy, Neuromuscular Re-education, Self-Care/Home Management, Therapeutic Activities, Therapeutic Exercises Modalities Cold Pack/Ice Massage,Electric Stimulation,Hot Packs, Traction- Mechanical Next Visit Focus/Plan Next Note Type Treatment Note Next Visit Plan Focus on rotation ROM, reducing muscular tension in the posterior neck, improving strength in anterior cervical musculature Plan of Care Dates Plan of Care Start Date 02/25/22 Plan of Care End Date 05/20/22 Electronically Signed by: Thelma Crawford, PT 02/27/22 1188 If you are in agreement with this Plan of Care, please return a signed and dated copy. I have reviewed this Plan of Care and certify that the skilled therapy services above are required to meet the patient?s needs. Physician Signature Date Printed Name and Credentials Clinical Instructor Signature Printed Name and Credentials
--- NOTE | 2022-02-28 15:28 | PT.OTN ---
Current Diagnoses Cervicalgia (02/28/22) Headache, unspecified (02/28/22) Physical Therapy Treatment Note PT-OP-A Visit Information Start: 02/24/22 15:55 Freq: Status: Active Protocol: Document 02/28/22 13:55 AMB (Rec: 02/28/22 14:49 AMB [id number]) Out-Patient Physical Therapy Visit Information Visit Information Visit Type Treatment Note Visit Start Time 13:55 Visit Stop Time 14:40 Total Visit Minutes 45 Visit Number 2 PT-OP-B Current Condition Start: 02/24/22 15:55 Freq: Status: Active Protocol: Document 02/25/22 11:19 AMB (Rec: 02/25/22 11:34 AMB [id number]) Current Condition History of Current Condition Onset Date 1-1.5 years Current Complaints neck pain and headaches History of Current Condition Headaches towards the end of the day. 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 Thinks she clenches her jaw a lot with dentures. Knitting/ reading and looking down to do so exacerbates her sx. Smoke marijuana to fall asleep. Anytime I've been sitting knitting and reading the headache starts, denies eye strain. Bilateral temples. Bilateral upper traps is where neck pain is. Lying on the floor helps the neck, difficult to get up from the floor. Goes on 1 mile-2 mile walk/ day. Holding the book up higher does seem to help the neck/headache. Used to do yoga before the pandemic, but can't really afford classes. Treatment Goals Patient/Caregiver Goals Reduce neck pain/headache Prior Functional Status Baseline Function- ADL's Modified Independent Baseline Function- Mobility Modified Independent Current Functional Impairments (Reported) Functional Limitations- ADL's Difficulty enjoying hobbies: reading and knitting Personal Factors Other Personal Factors That May Effect Bilateral shoulder dysfunction Therapy/Recovery with poor flexion/abduction over shoulder height, poor tree pruner strength. Peripheral neuropathy. PT-OP-C Subjective Start: 02/24/22 15:55 Freq: Status: Active Protocol: Document 02/28/22 13:45 AMB (Rec: 02/28/22 15:28 AMB [id number]) OP-PT Subjective Patient Comments Patient Comments Ollie reports she had good pain relief for 2 hours after last visit. Wondering what she can do at home. PT-OP-J Posture/Palpation/Skin Start: 02/24/22 15:55 Freq: Status: Active Protocol: Document 02/25/22 11:19 AMB (Rec: 02/27/22 12:44 AMB [id number]) Posture Evaluation Comments Posture Comments Flat cervical spine, hypertonicity of upper trapezius Palpation Assessment Location One Palpation Location Neck Palpation Findings Soft Tissue Tightness,Spasm, Muscle Guarding,Tenderness Palpation Details Tightness at upper traps, suboccipitals PT-OP-K Range of Motion Start: 02/24/22 15:55 Freq: Status: Active Protocol: Document 02/25/22 11:15 AMB (Rec: 02/26/22 15:29 AMB [id number]) Cervical Spine Range of Motion Cervical Spine Active Degrees Testing Position Sitting Flexion 50 Extension 27 Rotation Left 34 Rotation Right 32 Lateral Flexion Left 15 Lateral Flexion Right 10 ROM Limitations Soft Tissue Tightness,Bony Restriction,Pain PT-OP-Q Treatments Start: 02/24/22 15:55 Freq: Status: Active Protocol: Document 02/28/22 13:45 AMB (Rec: 02/28/22 15:28 AMB [id number]) Therapeutic Exercises Sitting Exercises upper trap stretch Reps/Minutes 30x2 chin tuck Reps/Minutes 10 Comments physical and verbal cues for alignment Manual Therapy Treatment Soft Tissue Mobilization suboccipitals Body Location MFR Comments added parapsinals Manual Techniques 1 Type manual stretching Comments suboccipitals, levator scap, upper trap PT-OP-T Assessment and Plan Start: 02/24/22 15:55 Freq: Status: Active Protocol: Document 02/28/22 13:45 AMB (Rec: 02/28/22 15:28 AMB [id number]) Physical Therapy Assessment Goals Two Impairment pain Short Term Goal (STG) Ollie will read for 30 minutes without an increase in baseline pain. STG Duration 4 weeks Nursing Home Goal (LTG) Ollie will sit with good posture using props as needed for assistance for one hour without a headache. LTG Duration 8 weeks One Impairment ROM Short Term Goal (STG) Ollie will improve her active cervical rotation to bilaterally 40 degrees. STG Duration 4 weeks Nursing Home Goal (LTG) Ollie will improve her cervical extension to at least 40 degrees. LTG Duration 8 weeks Assessment Summary Assessment Ollie needed cues for correct chin tucks. She does have difficulty with theracane, tennis ball options due to impaired bilateral upper extremity ROM and strenght, so focused HEP on stretching and strengthening for now. Physical Therapy Plan Next Visit Focus/Plan Next Note Type Treatment Note Next Visit Plan Focus on rotation ROM, reducing muscular tension in the posterior neck, improving strength in anterior cervical musculature, can consider modalities
--- NOTE | 2022-03-04 21:37 | PT.OTN ---
Current Diagnoses Cervicalgia (03/04/22) Headache, unspecified (03/04/22) Physical Therapy Treatment Note PT-OP-A Visit Information Start: 02/24/22 15:55 Freq: Status: Active Protocol: Document 03/04/22 13:50 AMB (Rec: 03/04/22 14:33 AMB [id number]) Out-Patient Physical Therapy Visit Information Visit Information Visit Type Treatment Note Visit Start Time 13:55 Visit Stop Time 14:40 Total Visit Minutes 45 Visit Number 3 PT-OP-B Current Condition Start: 02/24/22 15:55 Freq: Status: Active Protocol: Document 02/25/22 11:19 AMB (Rec: 02/25/22 11:34 AMB [id number]) Current Condition History of Current Condition Onset Date 1-1.5 years Current Complaints neck pain and headaches History of Current Condition Headaches towards the end of the day. 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 Thinks she clenches her jaw a lot with dentures. Knitting/ reading and looking down to do so exacerbates her sx. Smoke marijuana to fall asleep. Anytime I've been sitting knitting and reading the headache starts, denies eye strain. Bilateral temples. Bilateral upper traps is where neck pain is. Lying on the floor helps the neck, difficult to get up from the floor. Goes on 1 mile-2 mile walk/ day. Holding the book up higher does seem to help the neck/headache. Used to do yoga before the pandemic, but can't really afford classes. 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 Peripheral neuropathy. PT-OP-C Subjective Start: 02/24/22 15:55 Freq: Status: Active Protocol: Document 03/04/22 13:50 AMB (Rec: 03/04/22 14:33 AMB [id number]) OP-PT Subjective Patient Comments Patient Comments Lasting a little bit longer as far as PT-OP-J Posture/Palpation/Skin Start: 02/24/22 15:55 Freq: Status: Active Protocol: Document 02/25/22 11:19 AMB (Rec: 02/27/22 12:44 AMB [id number]) Posture Evaluation Comments Posture Comments Flat cervical spine, hypertonicity of upper trapezius Palpation Assessment Location One Palpation Location Neck Palpation Findings Soft Tissue Tightness,Spasm, Muscle Guarding,Tenderness Palpation Details Tightness at upper traps, suboccipitals PT-OP-K Range of Motion Start: 02/24/22 15:55 Freq: Status: Active Protocol: Document 02/25/22 11:15 AMB (Rec: 02/26/22 15:29 AMB [id number]) Cervical Spine Range of Motion Cervical Spine Active Degrees Testing Position Sitting Flexion 50 Extension 27 Rotation Left 34 Rotation Right 32 Lateral Flexion Left 15 Lateral Flexion Right 10 ROM Limitations Soft Tissue Tightness,Bony Restriction,Pain PT-OP-Q Treatments Start: 02/24/22 15:55 Freq: Status: Active Protocol: Document 03/04/22 13:50 AMB (Rec: 03/04/22 14:33 AMB [id number]) Therapeutic Exercises Sitting Exercises cervical isometric Sitting Exercise Name L rotation Comments supine or seated upper trap stretch Reps/Minutes 30x2 chin tuck Reps/Minutes 10 Comments physical and verbal cues for alignment Manual Therapy Treatment Soft Tissue Mobilization parascapular muscles Body Location levator scap, rhomboids Comments bilateral suboccipitals Body Location MFR Comments added parapsinals PT-OP-T Assessment and Plan Start: 02/24/22 15:55 Freq: Status: Active Protocol: Document 03/04/22 13:50 AMB (Rec: 03/04/22 14:33 AMB [id number]) Physical Therapy Assessment Goals Two Impairment pain Short Term Goal (STG) Ollie will read for 30 minutes without an increase in baseline pain. STG Duration 4 weeks Penitentiary Goal (LTG) Ollie will sit with good posture using props as needed for assistance for one hour without a headache. LTG Duration 8 weeks One Impairment ROM Short Term Goal (STG) Ollie will improve her active cervical rotation to bilaterally 40 degrees. STG Duration 4 weeks Penitentiary Goal (LTG) Ollie will improve her cervical extension to at least 40 degrees. LTG Duration 8 weeks Assessment Summary Assessment Reviewed UT stretch and changed as it was causing pain , encouraged pt not to push hard into range especially to the left. Would recommend isometrics to L rotation, R shoulder limits R rotation. Physical Therapy Plan Next Visit Focus/Plan Next Note Type Treatment Note Next Visit Plan Focus on rotation ROM, reducing muscular tension in the posterior neck, improving strength in anterior cervical musculature, can consider modalities
--- NOTE | 2022-03-06 13:05 | PT.OTN ---
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 Thinks she clenches her jaw a lot with dentures. Knitting/ reading and looking down to do so exacerbates her sx. Smoke marijuana to fall asleep. Anytime I've been sitting knitting and reading the headache starts, denies eye strain. Bilateral temples. Bilateral upper traps is where neck pain is. Lying on the floor helps the neck, difficult to get up from the floor. Goes on 1 mile-2 mile walk/ day. Holding the book up higher does seem to help the neck/headache. Used to do yoga before the pandemic, but can't really afford classes. 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 Peripheral neuropathy. PT-OP-C Subjective Start: 02/24/22 15:55 Freq: Status: Active Protocol: Document 03/06/22 12:15 SP (Rec: 03/06/22 13:07 SP [id number]) OP-PT Subjective Patient Comments Patient Comments Pt reports is compliant with HEP and started past pendulum and feel helping lessen tension neck/ shld. PT-OP-J Posture/Palpation/Skin Start: 02/24/22 15:55 Freq: Status: Active Protocol: Document 02/25/22 11:19 AMB (Rec: 02/27/22 12:44 AMB [id number]) Posture Evaluation Comments Posture Comments Flat cervical spine, hypertonicity of upper trapezius Palpation Assessment Location One Palpation Location Neck Palpation Findings Soft Tissue Tightness,Spasm, Muscle Guarding,Tenderness Palpation Details Tightness at upper traps, suboccipitals PT-OP-K Range of Motion Start: 02/24/22 15:55 Freq: Status: Active Protocol: Document 02/25/22 11:15 AMB (Rec: 02/26/22 15:29 AMB [id number]) Cervical Spine Range of Motion Cervical Spine Active Degrees Testing Position Sitting Flexion 50 Extension 27 Rotation Left 34 Rotation Right 32 Lateral Flexion Left 15 Lateral Flexion Right 10 ROM Limitations Soft Tissue Tightness,Bony Restriction,Pain PT-OP-Q Treatments Start: 02/24/22 15:55 Freq: Status: Active Protocol: Document 03/06/22 12:15 SP (Rec: 03/06/22 13:07 SP [id number]) Therapeutic Exercises Sidelying Exercises open book Sidelying Exercise Name addded to HEP Side bilateral Equipment Used LUE long arm axis - good response Reps/Minutes x5 reps Comments RUE limited so just focused on scapular retraction/ depression- stacked alig Sitting Exercises wall posture Sitting Exercise Name added Equipment Used towel behind head if able for feedback ext Reps/Minutes good understanding/form x5 reps 5 sec hold Comments cued buttocks, TS and chin tuck back head toward wall, no LB arch trunk rotation Sitting Exercise Name added to HEP: arms across abdomen Side bilateral Reps/Minutes x10 Comments cued stationary trunk- good form and response ROM further cervical isometric Sitting Exercise Name L rotation Comments supine best able to reach head upper trap stretch Side bilateral Reps/Minutes 30x2 Comments hands under bottom chin tuck Reps/Minutes 10 Comments physical and verbal cues for alignment Manual Therapy Treatment Soft Tissue Mobilization parascapular muscles Body Location levator scap, rhomboids Comments bilateral suboccipitals Body Location MFR Comments added parapsinals PT-OP-T Assessment and Plan Start: 02/24/22 15:55 Freq: Status: Active Protocol: Document 03/06/22 12:15 SP (Rec: 03/06/22 13:07 SP [id number]) Physical Therapy Assessment Goals Two Impairment pain Short Term Goal (STG) Ollie will read for 30 minutes without an increase in baseline pain. STG Duration 4 weeks Custodial Goal (LTG) Ollie will sit with good posture using props as needed for assistance for one hour without a headache. LTG Duration 8 weeks One Impairment ROM Short Term Goal (STG) Ollie will improve her active cervical rotation to bilaterally 40 degrees. STG Duration 4 weeks [employer] Et[employer] Developer Goal (LTG) Ollie will improve her cervical extension to at least 40 degrees. LTG Duration 8 weeks Assessment Summary Assessment Pt responded well to manual and review HEP, modified arms held front improved TS rotation. Pt felt open book gave ability to move arm and mid back better post. Wall posture added good feedback to allow stand straighter. Physical Therapy Plan Frequency and Duration Frequency of Treatment 2x/Week Duration of treatment (weeks) 12 Plan of Care Start Date 02/25/22 Plan of Care End Date 05/20/22 Therapeutic Interventions Therapeutic Interventions Home Exercise Program,Joint Mobilizations,Manual Therapy, Neuromuscular Re-education, Self-Care/Home Management, Therapeutic Activities, Therapeutic Exercises Modalities Cold Pack/Ice Massage,Electric Stimulation,Hot Packs, Traction- Mechanical Next Visit Focus/Plan Next Note Type Treatment Note Next Visit Plan Focus on rotation ROM, reducing muscular tension in the posterior neck, improving strength in anterior cervical musculature, can consider modalities
--- NOTE | 2022-03-11 12:25 | PT-OP ANOTE ---
Pt DNS for appt, called and she thought her appt was at 1300 and not 1215. Agreeable to tomorrow appt at 0815.
--- NOTE | 2022-03-12 09:00 | PT.OTN ---
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 Thinks she clenches her jaw a lot with dentures. Knitting/ reading and looking down to do so exacerbates her sx. Smoke marijuana to fall asleep. Anytime I've been sitting knitting and reading the headache starts, denies eye strain. Bilateral temples. Bilateral upper traps is where neck pain is. Lying on the floor helps the neck, difficult to get up from the floor. Goes on 1 mile-2 mile walk/ day. Holding the book up higher does seem to help the neck/headache. Used to do yoga before the pandemic, but can't really afford classes. 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 Peripheral neuropathy. PT-OP-C Subjective Start: 02/24/22 15:55 Freq: Status: Active Protocol: Document 03/12/22 08:18 SP (Rec: 03/12/22 09:05 SP [id number]) OP-PT Subjective Patient Comments Patient Comments Pt reports the R lateral neck is starting to discomfort and L not as much, is faithful with HEP and doing trunk rotations as in yoga in past. PT-OP-J Posture/Palpation/Skin Start: 02/24/22 15:55 Freq: Status: Active Protocol: Document 02/25/22 11:19 AMB (Rec: 02/27/22 12:44 AMB [id number]) Posture Evaluation Comments Posture Comments Flat cervical spine, hypertonicity of upper trapezius Palpation Assessment Location One Palpation Location Neck Palpation Findings Soft Tissue Tightness,Spasm, Muscle Guarding,Tenderness Palpation Details Tightness at upper traps, suboccipitals PT-OP-K Range of Motion Start: 02/24/22 15:55 Freq: Status: Active Protocol: Document 02/25/22 11:15 AMB (Rec: 02/26/22 15:29 AMB [id number]) Cervical Spine Range of Motion Cervical Spine Active Degrees Testing Position Sitting Flexion 50 Extension 27 Rotation Left 34 Rotation Right 32 Lateral Flexion Left 15 Lateral Flexion Right 10 ROM Limitations Soft Tissue Tightness,Bony Restriction,Pain PT-OP-Q Treatments Start: 02/24/22 15:55 Freq: Status: Active Protocol: Document 03/12/22 08:18 SP (Rec: 03/12/22 09:05 SP [id number]) Therapeutic Exercises Supine Exercises serratus press Supine Exercise Name added to HEP Equipment Used wand, target to press to 1 Reps/Minutes 5 sec hold x5 reps Comments painfree range,chin tuck core press w/ chin tuck Supine Exercise Name added to HEP Equipment Used knees bent, arms straight press back to table Reps/Minutes 5 s hold x5 Comments cued painfree Sitting Exercises wall posture Sitting Exercise Name reviewed Equipment Used towel behind head if able for feedback ext Reps/Minutes good understanding/form x5 reps 5 sec hold Comments cued buttocks, TS and chin tuck back head toward wall, no LB arch Manual Therapy Treatment Soft Tissue Mobilization parascapular muscles Body Location levator scap, rhomboids Comments bilateral suboccipitals Body Location MFR Comments continue parapsinals PT-OP-T Assessment and Plan Start: 02/24/22 15:55 Freq: Status: Active Protocol: Document 03/12/22 08:18 SP (Rec: 03/12/22 09:05 SP [id number]) Physical Therapy Assessment Goals Two Impairment pain Short Term Goal (STG) Ollie will read for 30 minutes without an increase in baseline pain. 03/12/22: She reports is better posture and holding knitting and reading her book tires and less pain, gaining strength but recently heavy history book is heavier so little more pain and needs rest breaks. STG Duration 4 weeks 03/22/22 progressing Public Health Teacher Goal (LTG) Ollie will sit with good posture using props as needed for assistance for one hour without a headache. LTG Duration 8 weeks One Impairment ROM Short Term Goal (STG) Ollie will improve her active cervical rotation to bilaterally 40 degrees. STG Duration 4 weeks Mcc Goal (LTG) Ollie will improve her cervical extension to at least 40 degrees. LTG Duration 8 weeks Assessment Summary Assessment LONGWALL FOREMAN verbal review seated stretching, trunk rotation doing well. Pt good response to manual and added postural UE flexion/serratus press to HEP. Carry over to wall posture end tx. Physical Therapy Plan Frequency and Duration Frequency of Treatment 2x/Week Duration of treatment (weeks) 12 Plan of Care Start Date 02/25/22 Plan of Care End Date 05/20/22 Therapeutic Interventions Therapeutic Interventions Home Exercise Program,Joint Mobilizations,Manual Therapy, Neuromuscular Re-education, Self-Care/Home Management, Therapeutic Activities, Therapeutic Exercises Modalities Cold Pack/Ice Massage,Electric Stimulation,Hot Packs, Traction- Mechanical Next Visit Focus/Plan Next Note Type Treatment Note Next Visit Plan Focus on rotation ROM, reducing muscular tension in the posterior neck, improving strength in anterior cervical musculature, can consider modalities
--- NOTE | 2022-03-14 13:05 | PT.OTN ---
Current Diagnoses Cervicalgia (03/14/22) Headache, unspecified (03/14/22) Physical Therapy Treatment Note PT-OP-A Visit Information Start: 02/24/22 15:55 Freq: Status: Active Protocol: Document 03/14/22 12:15 SP (Rec: 03/14/22 13:34 SP [id number]) Out-Patient Physical Therapy Visit Information Visit Information Visit Type Treatment Note Visit Start Time 12:15 Visit Stop Time 13:05 Total Visit Minutes 50 Visit Number 6 Number of ENGINEERING ASSISTANT Visits 3 PT-OP-B Current Condition Start: 02/24/22 15:55 Freq: Status: Active Protocol: Document 02/25/22 11:19 AMB (Rec: 02/25/22 11:34 AMB [id number]) Current Condition History of Current Condition Onset Date 1-1.5 years Current Complaints neck pain and headaches History of Current Condition Headaches towards the end of the day. History of multiple accidents that cause shoulder/ elbow dysfunction, reduced rate analyst strength. Thinks she clenches her jaw a lot with dentures. Knitting/ reading and looking down to do so exacerbates her sx. Smoke marijuana to fall asleep. Anytime I've been sitting knitting and reading the headache starts, denies eye strain. Bilateral temples. Bilateral upper traps is where neck pain is. Lying on the floor helps the neck, difficult to get up from the floor. Goes on 1 mile-2 mile walk/ day. Holding the book up higher does seem to help the neck/headache. Used to do yoga before the pandemic, but can't really afford classes. Treatment Goals Patient/Caregiver Goals Reduce neck pain/headache Prior Functional Status Baseline Function- ADL's Modified Independent Baseline Function- Mobility Modified Independent Current Functional Impairments (Reported) Functional Limitations- ADL's Difficulty enjoying hobbies: reading and knitting Personal Factors Other Personal Factors That May Effect Bilateral shoulder dysfunction Therapy/Recovery with poor flexion/abduction over shoulder height, poor rate analyst strength. Peripheral neuropathy. PT-OP-C Subjective Start: 02/24/22 15:55 Freq: Status: Active Protocol: Document 03/14/22 12:15 SP (Rec: 03/14/22 13:34 SP [id number]) OP-PT Subjective Patient Comments Patient Comments Pt reported did well with new HEP and past PT-OP-J Posture/Palpation/Skin Start: 02/24/22 15:55 Freq: Status: Active Protocol: Document 02/25/22 11:19 AMB (Rec: 02/27/22 12:44 AMB [id number]) Posture Evaluation Comments Posture Comments Flat cervical spine, hypertonicity of upper trapezius Palpation Assessment Location One Palpation Location Neck Palpation Findings Soft Tissue Tightness,Spasm, Muscle Guarding,Tenderness Palpation Details Tightness at upper traps, suboccipitals PT-OP-K Range of Motion Start: 02/24/22 15:55 Freq: Status: Active Protocol: Document 02/25/22 11:15 AMB (Rec: 02/26/22 15:29 AMB [id number]) Cervical Spine Range of Motion Cervical Spine Active Degrees Testing Position Sitting Flexion 50 Extension 27 Rotation Left 34 Rotation Right 32 Lateral Flexion Left 15 Lateral Flexion Right 10 ROM Limitations Soft Tissue Tightness,Bony Restriction,Pain PT-OP-Q Treatments Start: 02/24/22 15:55 Freq: Status: Active Protocol: Document 03/14/22 12:15 SP (Rec: 03/14/22 13:34 SP [id number]) Therapeutic Exercises Supine Exercises CS flexion w/ chin nod Supine Exercise Name added to HEP Reps/Minutes 2-3 sec hold x5 2 sets (rest btwn sets) Comments cued knees bent, improved lift but challenging flexor weakness serratus press Supine Exercise Name reviewed Equipment Used wand, target to press to 1 Reps/Minutes x1 reps pause hold Comments having increase R shld pain today to DC'd core press w/ chin tuck Supine Exercise Name reviewed HEP Resistance towel roll under posterior head only needed little elevation Equipment Used knees bent, arms straight at side Reps/Minutes 5 s hold x5 reps x3 sets Comments cued chin nod neutral flexion, TS lift (rhomb fac) Sitting Exercises CS rotation Sitting Exercise Name reviewed self HEP Side bilateral Resistance AROM to end range (more L than R) Reps/Minutes x10, 2 sec hold Comments cued taller posture, CS retraction to neutral alignment sit <> stand Sitting Exercise Name improved as reps progressed ( arms across chest) Resistance cued CS nod/ ext neutral positioning Equipment Used 19 black mat table, stand on blue mat Reps/Minutes x10 Comments cued wt shift and full stand, slower pacing eccentric control for safety trunk flexion, rotation Sitting Exercise Name added to HEP: LS/ TS flexion then rotation each UE toward floor Equipment Used cued chin tuck/nod neutral into LS flexion Reps/Minutes 2x5 reps Comments improved scapular serratus press mob and TS rotation trunk rotation Sitting Exercise Name reviewed HEP: arms across abdomen Side bilateral Reps/Minutes x10 Comments cued stationary trunk- good form and response ROM further upper trap stretch Side bilateral Reps/Minutes 30x2 Comments hands under bottom chin tuck Reps/Minutes 10 Comments improved alignment Standing Exercises lateral SB Standing Exercise Name arms glide down sides (give HO next tx) Side bilateral Equipment Used stand uneven blue mat (post floor transfer) Reps/Minutes x5 each side alternating Comments good lateral trunk stretch Therapeutic Activity Therapeutic Activity lifting mechanics Name AROM> green wt ball>5# DB Reps/Minutes x5 total Comments cued bent knees hip hinge, CS retraction neutral and look down tuck between feet. Body positioning closer to ball/DB bend knees w/ buttocks back, grasp item then pull close to trunk, lift with legs. Better mechanics as reps progressed. Pt little SOB last rep with 5# DB. on/off floor transfer Name x1 Comments Education and time spent safe transfer sequencing: challenged stand to 1/2 kneel due to knee discomfort into flexion to quadruped close SBA , side sit to quadruped Min A coming from R and L side sitting. close SBA quadruped> stand>sit on black mat table. -Continue each treatment to improved ROM/strength to allow return to Yoga class. PT-OP-T Assessment and Plan Start: 02/24/22 15:55 Freq: Status: Active Protocol: Document 03/14/22 12:15 SP (Rec: 03/14/22 13:34 SP [id number]) Physical Therapy Assessment Goals Two Impairment pain Short Term Goal (STG) Ollie will read for 30 minutes without an increase in baseline pain. 03/12/22: She reports is better posture and holding knitting and reading her book tires and less pain, gaining strength but recently heavy history book is heavier so little more pain and needs rest breaks. STG Duration 4 weeks 03/22/22 progressing Mcc Goal (LTG) Ollie will sit with good posture using props as needed for assistance for one hour without a headache. LTG Duration 8 weeks One Impairment ROM Short Term Goal (STG) Ollie will improve her active cervical rotation to bilaterally 40 degrees. STG Duration 4 weeks Mcc Goal (LTG) Ollie will improve her cervical extension to at least 40 degrees. LTG Duration 8 weeks Assessment Summary Assessment Pt improved with chin nod CS retraction neutral positioning post cues throughout ther ex. Pt needed CG- Min A for floor transfers, improved lifting mechanics up to 5# DB from floor. Physical Therapy Plan Frequency and Duration Frequency of Treatment 2x/Week Duration of treatment (weeks) 12 Plan of Care Start Date 02/25/22 Plan of Care End Date 05/20/22 Therapeutic Interventions Therapeutic Interventions Home Exercise Program,Joint Mobilizations,Manual Therapy, Neuromuscular Re-education, Self-Care/Home Management, Therapeutic Activities, Therapeutic Exercises Modalities Cold Pack/Ice Massage,Electric Stimulation,Hot Packs, Traction- Mechanical Next Visit Focus/Plan Next Note Type Treatment Note Next Visit Plan Continue floor transfers and lifting mechanics to allow return to yoga and HEP on floor her personal goal. POC: Focus on rotation ROM, reducing muscular tension in the posterior neck, improving strength in anterior cervical musculature, can consider modalities
--- NOTE | 2022-03-18 15:54 | PT.OTN ---
Current Diagnoses Cervicalgia (03/18/22) Headache, unspecified (03/18/22) Physical Therapy Treatment Note PT-OP-A Visit Information Start: 02/24/22 15:55 Freq: Status: Active Protocol: Document 03/18/22 13:45 AMB (Rec: 03/18/22 15:49 AMB [id number]) Out-Patient Physical Therapy Visit Information Visit Information Visit Type Treatment Note Visit Start Time 13:45 Visit Stop Time 14:30 Total Visit Minutes 45 Visit Number 7 Number of SHEEP STICKER Visits 0 PT-OP-B Current Condition Start: 02/24/22 15:55 Freq: Status: Active Protocol: Document 02/25/22 11:19 AMB (Rec: 02/25/22 11:34 AMB [id number]) Current Condition History of Current Condition Onset Date 1-1.5 years Current Complaints neck pain and headaches History of Current Condition Headaches towards the end of the day. History of multiple accidents that cause shoulder/ elbow dysfunction, reduced contact and service clerks supervisor strength. Thinks she clenches her jaw a lot with dentures. Knitting/ reading and looking down to do so exacerbates her sx. Smoke marijuana to fall asleep. Anytime I've been sitting knitting and reading the headache starts, denies eye strain. Bilateral temples. Bilateral upper traps is where neck pain is. Lying on the floor helps the neck, difficult to get up from the floor. Goes on 1 mile-2 mile walk/ day. Holding the book up higher does seem to help the neck/headache. Used to do yoga before the pandemic, but can't really afford classes. Treatment Goals Patient/Caregiver Goals Reduce neck pain/headache Prior Functional Status Baseline Function- ADL's Modified Independent Baseline Function- Mobility Modified Independent Current Functional Impairments (Reported) Functional Limitations- ADL's Difficulty enjoying hobbies: reading and knitting Personal Factors Other Personal Factors That May Effect Bilateral shoulder dysfunction Therapy/Recovery with poor flexion/abduction over shoulder height, poor contact and service clerks supervisor strength. Peripheral neuropathy. PT-OP-C Subjective Start: 02/24/22 15:55 Freq: Status: Active Protocol: Document 03/18/22 13:45 AMB (Rec: 03/18/22 15:49 AMB [id number]) OP-PT Subjective Patient Comments Patient Comments Pt reports neck is better in that she can wake up without neck pain, then do a few exercises and can have a few hours of painfree neck, but pain does come back in the afternoon. PT-OP-J Posture/Palpation/Skin Start: 02/24/22 15:55 Freq: Status: Active Protocol: Document 02/25/22 11:19 AMB (Rec: 02/27/22 12:44 AMB [id number]) Posture Evaluation Comments Posture Comments Flat cervical spine, hypertonicity of upper trapezius Palpation Assessment Location One Palpation Location Neck Palpation Findings Soft Tissue Tightness,Spasm, Muscle Guarding,Tenderness Palpation Details Tightness at upper traps, suboccipitals PT-OP-K Range of Motion Start: 02/24/22 15:55 Freq: Status: Active Protocol: Document 02/25/22 11:15 AMB (Rec: 02/26/22 15:29 AMB [id number]) Cervical Spine Range of Motion Cervical Spine Active Degrees Testing Position Sitting Flexion 50 Extension 27 Rotation Left 34 Rotation Right 32 Lateral Flexion Left 15 Lateral Flexion Right 10 ROM Limitations Soft Tissue Tightness,Bony Restriction,Pain PT-OP-Q Treatments Start: 02/24/22 15:55 Freq: Status: Active Protocol: Document 03/18/22 13:45 AMB (Rec: 03/18/22 15:49 AMB [id number]) Therapeutic Exercises Sitting Exercises CS rotation Sitting Exercise Name reviewed self HEP Side bilateral Resistance AROM to end range (more L than R) Reps/Minutes x10, 2 sec hold Comments cued taller posture, CS retraction to neutral alignment upper trap stretch Side bilateral Reps/Minutes 30x2 Comments hands under bottom chin tuck Reps/Minutes 10 Comments improved alignment Therapeutic Activity Therapeutic Activity on/off floor transfer Name x1 Comments Education and time spent safe transfer sequencing: allowed UE support on stable chair for stand to high kneel: close SBA, side sit to quadruped Min A coming from R and L side sitting. close SBA quadruped> stand>sit on black mat table with UE support. -Continue each treatment to improved ROM /strength to allow return to Yoga class. Manual Therapy Treatment Soft Tissue Mobilization parascapular muscles Body Location levator scap, rhomboids Comments bilateral suboccipitals Body Location MFR Comments continue parapsinals PT-OP-T Assessment and Plan Start: 02/24/22 15:55 Freq: Status: Active Protocol: Document 03/18/22 13:49 AMB (Rec: 03/18/22 14:34 AMB [id number]) Physical Therapy Assessment Goals Two Impairment pain Short Term Goal (STG) Ollie will read for 30 minutes without an increase in baseline pain. 03/12/22: She reports is better posture and holding knitting and reading her book tires and less pain, gaining strength but recently heavy history book is heavier so little more pain and needs rest breaks. STG Duration 4 weeks 03/22/22 progressing Correction Goal (LTG) Ollie will sit with good posture using props as needed for assistance for one hour without a headache. LTG Duration 8 weeks One Impairment ROM Short Term Goal (STG) Ollie will improve her active cervical rotation to bilaterally 40 degrees. STG Duration MET Web Administrator Goal (LTG) Ollie will improve her cervical extension to at least 40 degrees. LTG Duration 8 weeks Assessment Summary Assessment 42L rot, 46R rot today at end of session which is improved from eval. Biggest struggle with floor transfer was side sit to quadruped and will need to continue to work on to allow pt to do supine exercises. Physical Therapy Plan Next Visit Focus/Plan Next Note Type Treatment Note Next Visit Plan Continue floor transfers and lifting mechanics to allow return to yoga and HEP on floor her personal goal. POC: Focus on rotation ROM, reducing muscular tension in the posterior neck, improving strength in anterior cervical musculature, can consider modalities
--- NOTE | 2022-03-21 15:48 | PT.OTN ---
Current Diagnoses Cervicalgia (03/21/22) Headache, unspecified (03/21/22) Physical Therapy Treatment Note PT-OP-A Visit Information Start: 02/24/22 15:55 Freq: Status: Active Protocol: Document 03/21/22 13:47 AMB (Rec: 03/21/22 14:32 AMB [id number]) Out-Patient Physical Therapy Visit Information Visit Information Visit Type Treatment Note Visit Start Time 13:45 Visit Stop Time 14:30 Total Visit Minutes 45 Visit Number 8 PT-OP-B Current Condition Start: 02/24/22 15:55 Freq: Status: Active Protocol: Document 02/25/22 11:19 AMB (Rec: 02/25/22 11:34 AMB [id number]) Current Condition History of Current Condition Onset Date 1-1.5 years Current Complaints neck pain and headaches History of Current Condition Headaches towards the end of the day. History of multiple accidents that cause shoulder/ elbow dysfunction, reduced belt molder strength. Thinks she clenches her jaw a lot with dentures. Knitting/ reading and looking down to do so exacerbates her sx. Smoke marijuana to fall asleep. Anytime I've been sitting knitting and reading the headache starts, denies eye strain. Bilateral temples. Bilateral upper traps is where neck pain is. Lying on the floor helps the neck, difficult to get up from the floor. Goes on 1 mile-2 mile walk/ day. Holding the book up higher does seem to help the neck/headache. Used to do yoga before the pandemic, but can't really afford classes. Treatment Goals Patient/Caregiver Goals Reduce neck pain/headache Prior Functional Status Baseline Function- ADL's Modified Independent Baseline Function- Mobility Modified Independent Current Functional Impairments (Reported) Functional Limitations- ADL's Difficulty enjoying hobbies: reading and knitting Personal Factors Other Personal Factors That May Effect Bilateral shoulder dysfunction Therapy/Recovery with poor flexion/abduction over shoulder height, poor belt molder strength. Peripheral neuropathy. PT-OP-C Subjective Start: 02/24/22 15:55 Freq: Status: Active Protocol: Document 03/21/22 13:45 AMB (Rec: 03/21/22 15:45 AMB [id number]) OP-PT Subjective Patient Comments Patient Comments Ollie isn't reporting neck pain at the moment, neck still feels weak. PT-OP-J Posture/Palpation/Skin Start: 02/24/22 15:55 Freq: Status: Active Protocol: Document 02/25/22 11:19 AMB (Rec: 02/27/22 12:44 AMB [id number]) Posture Evaluation Comments Posture Comments Flat cervical spine, hypertonicity of upper trapezius Palpation Assessment Location One Palpation Location Neck Palpation Findings Soft Tissue Tightness,Spasm, Muscle Guarding,Tenderness Palpation Details Tightness at upper traps, suboccipitals PT-OP-K Range of Motion Start: 02/24/22 15:55 Freq: Status: Active Protocol: Document 02/25/22 11:15 AMB (Rec: 02/26/22 15:29 AMB [id number]) Cervical Spine Range of Motion Cervical Spine Active Degrees Testing Position Sitting Flexion 50 Extension 27 Rotation Left 34 Rotation Right 32 Lateral Flexion Left 15 Lateral Flexion Right 10 ROM Limitations Soft Tissue Tightness,Bony Restriction,Pain PT-OP-Q Treatments Start: 02/24/22 15:55 Freq: Status: Active Protocol: Document 03/21/22 13:47 AMB (Rec: 03/21/22 14:32 AMB [id number]) Therapeutic Exercises Supine Exercises CS flexion w/ chin nod Supine Exercise Name added to HEP Reps/Minutes 2-3 sec hold x5 2 sets (rest btwn sets) Comments cued knees bent, improved lift but challenging flexor weakness Sitting Exercises chin tuck Reps/Minutes 10 Comments improved alignment Therapeutic Activity Therapeutic Activity on/off floor transfer Name x1 Comments Education and time spent safe transfer sequencing: allowed UE support on stable chair for stand to high kneel: close SBA, side sit to quadruped Min A coming from R and L side sitting. close SBA quadruped> stand>sit on black mat table with UE support. -Continue each treatment to improved ROM /strength to allow return to Yoga class. Manual Therapy Treatment Soft Tissue Mobilization parascapular muscles Body Location levator scap, rhomboids Comments bilateral suboccipitals Body Location MFR Comments continue parapsinals PT-OP-T Assessment and Plan Start: 02/24/22 15:55 Freq: Status: Active Protocol: Document 03/21/22 13:47 AMB (Rec: 03/21/22 14:32 AMB [id number]) Physical Therapy Assessment Goals Two Impairment pain Short Term Goal (STG) Ollie will read for 30 minutes without an increase in baseline pain. 03/12/22: She reports is better posture and holding knitting and reading her book tires and less pain, gaining strength but recently heavy history book is heavier so little more pain and needs rest breaks. STG Duration 4 weeks 03/22/22 progressing Long-Term Goal (LTG) Ollie will sit with good posture using props as needed for assistance for one hour without a headache. LTG Duration 8 weeks One Impairment ROM Short Term Goal (STG) Ollie will improve her active cervical rotation to bilaterally 40 degrees. STG Duration MET Financial Aid Manager Goal (LTG) Ollie will improve her cervical extension to at least 40 degrees. LTG Duration 8 weeks Assessment Summary Assessment Better with floor transfer today, asked pt to not practice at home for at least one more visit. Deep flexors continue to be weak, difficulty lifting head off of table when in supine. Physical Therapy Plan Frequency and Duration Frequency of Treatment 2x/Week Duration of treatment (weeks) 12 Plan of Care Start Date 02/25/22 Plan of Care End Date 05/20/22 Therapeutic Interventions Therapeutic Interventions Home Exercise Program,Joint Mobilizations,Manual Therapy, Neuromuscular Re-education, Self-Care/Home Management, Therapeutic Activities, Therapeutic Exercises Modalities Cold Pack/Ice Massage,Electric Stimulation,Hot Packs, Traction- Mechanical Next Visit Focus/Plan Next Note Type Treatment Note Next Visit Plan Continue floor transfers and lifting mechanics to allow return to yoga and HEP on floor her personal goal. POC: Focus on rotation ROM, reducing muscular tension in the posterior neck, improving strength in anterior cervical musculature, can consider modalities
--- NOTE | 2022-03-21 21:25 | PT.OPPOC ---
Physical, Occupational & Speech Therapy At [facility] Current Diagnoses Cervicalgia (04/01/22) Headache, unspecified (04/01/22) Visit Care Team Role Provider Type KELVIN Brownlee Attending Provider Advanced Log Rider Family Provider Primary Care Provider Referring Provider Specialty: Family Practice Address: [address] [place] [address], [facility] Email: [email or web address] Plan Of Care PT-OP-T Assessment and Plan Start: 02/24/22 15:55 Freq: Status: Active Protocol: Document 04/01/22 21:16 AMB (Rec: 03/21/22 14:32 AMB [id number]) Physical Therapy Assessment Goals Three Impairment Transfers Short Term Goal (STG) Ollie will perform a floor transfer with SBA with environmental support so that she can get on the floor to perform her HEP and yoga. STG Duration 4 weeks Long-Term Goal (LTG) Ollie will improve her deep neck flexor strength so that she can lift her head from supine for 5 seconds to allow better rolling from supine to sit without an increase in pain. LTG Duration 8 weeks Two Impairment pain Short Term Goal (STG) Ollie will read for 30 minutes without an increase in baseline pain. 03/12/22: She reports is better posture and holding knitting and reading her book tires and less pain, gaining strength but recently heavy history book is heavier so little more pain and needs rest breaks. STG Duration 4 weeks 03/22/22 progressing Long-Term Goal (LTG) Ollie will sit with good posture using props as needed for assistance for one hour without a headache. LTG Duration 8 weeks One Impairment ROM Short Term Goal (STG) Ollie will improve her active cervical rotation to bilaterally 40 degrees. STG Duration MET Ux Manager Goal (LTG) Ollie will improve her cervical extension to at least 40 degrees. LTG Duration 8 weeks Assessment Summary Assessment Better with floor transfer today, asked pt to not practice at home for at least one more visit. Deep flexors continue to be weak, difficulty lifting head off of table when in supine. Ollie overall is improving in her pain levels and in her range of motion. She continues to have neck pain towards the end of the day, but has been having good progress with her neck pain and range of motion in therapy. Added transfers to POC as pt wants to be able to safely get onto the floor and off of it to perform exercises at home, and has been unable to do this for about the last 2 years. Physical Therapy Plan Frequency and Duration Frequency of Treatment 2x/Week Duration of treatment (weeks) 12 Plan of Care Start Date 02/25/22 Plan of Care End Date 05/20/22 Therapeutic Interventions Therapeutic Interventions Home Exercise Program,Joint Mobilizations,Manual Therapy, Neuromuscular Re-education, Self-Care/Home Management, Therapeutic Activities, Therapeutic Exercises Modalities Cold Pack/Ice Massage,Electric Stimulation,Hot Packs, Traction- Mechanical Next Visit Focus/Plan Next Note Type Treatment Note Next Visit Plan Continue floor transfers and lifting mechanics to allow return to yoga and HEP on floor her personal goal. POC: Focus on rotation ROM, reducing muscular tension in the posterior neck, improving strength in anterior cervical musculature, can consider modalities Plan of Care Dates Plan of Care Start Date 02/25/22 Plan of Care End Date 05/20/22 Electronically Signed by: Thelma Crawford, PT 04/01/22 2647 If you are in agreement with this Plan of Care, please return a signed and dated copy. I have reviewed this Plan of Care and certify that the skilled therapy services above are required to meet the patient?s needs. Physician Signature Date Printed Name and Credentials Clinical Instructor Signature Printed Name and Credentials
--- NOTE | 2022-03-25 11:15 | PT.OTN ---
Current Diagnoses Cervicalgia (03/25/22) Headache, unspecified (03/25/22) Physical Therapy Treatment Note PT-OP-A Visit Information Start: 02/24/22 15:55 Freq: Status: Active Protocol: Document 03/25/22 10:32 SP (Rec: 03/25/22 11:45 SP [id number]) Out-Patient Physical Therapy Visit Information Visit Information Visit Type Treatment Note Visit Note Pt due for 10 visit next tx but is scheduled with RESEARCH DIRECTOR for 3 more visits. RESEARCH DIRECTOR will see if pt can adjust next appt to see PT on Fri instead of th this week. DEMETRIO Anand observed tx with permission of Pt. Visit Start Time 10:32 Visit Stop Time 11:15 Total Visit Minutes 43 Visit Number 9 Number of RESEARCH DIRECTOR Visits 1 PT-OP-B Current Condition Start: 02/24/22 15:55 Freq: Status: Active Protocol: Document 02/25/22 11:19 AMB (Rec: 02/25/22 11:34 AMB [id number]) Current Condition History of Current Condition Onset Date 1-1.5 years Current Complaints neck pain and headaches History of Current Condition Headaches towards the end of the day. 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 Thinks she clenches her jaw a lot with dentures. Knitting/ reading and looking down to do so exacerbates her sx. Smoke marijuana to fall asleep. Anytime I've been sitting knitting and reading the headache starts, denies eye strain. Bilateral temples. Bilateral upper traps is where neck pain is. Lying on the floor helps the neck, difficult to get up from the floor. Goes on 1 mile-2 mile walk/ day. Holding the book up higher does seem to help the neck/headache. Used to do yoga before the pandemic, but can't really afford classes. 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 Peripheral neuropathy. PT-OP-C Subjective Start: 02/24/22 15:55 Freq: Status: Active Protocol: Document 03/25/22 10:32 SP (Rec: 03/25/22 11:45 SP [id number]) OP-PT Subjective Patient Comments Patient Comments Pt reported she can turn her head and rotate her trunk further now, the exercises are really helping. She wants to continue to work on floor transfers to be able to do her HEP in this location due to bed to squishy. PT-OP-J Posture/Palpation/Skin Start: 02/24/22 15:55 Freq: Status: Active Protocol: Document 02/25/22 11:19 AMB (Rec: 02/27/22 12:44 AMB [id number]) Posture Evaluation Comments Posture Comments Flat cervical spine, hypertonicity of upper trapezius Palpation Assessment Location One Palpation Location Neck Palpation Findings Soft Tissue Tightness,Spasm, Muscle Guarding,Tenderness Palpation Details Tightness at upper traps, suboccipitals PT-OP-K Range of Motion Start: 02/24/22 15:55 Freq: Status: Active Protocol: Document 02/25/22 11:15 AMB (Rec: 02/26/22 15:29 AMB [id number]) Cervical Spine Range of Motion Cervical Spine Active Degrees Testing Position Sitting Flexion 50 Extension 27 Rotation Left 34 Rotation Right 32 Lateral Flexion Left 15 Lateral Flexion Right 10 ROM Limitations Soft Tissue Tightness,Bony Restriction,Pain PT-OP-Q Treatments Start: 02/24/22 15:55 Freq: Status: Active Protocol: Document 03/25/22 10:32 SP (Rec: 03/25/22 11:45 SP [id number]) Therapeutic Exercises Supine Exercises CS flexion w/ chin nod Supine Exercise Name added to HEP Reps/Minutes 2-3 sec hold x5 2 sets (rest btwn sets) Comments cued knees bent, improved lift but challenging flexor weakness Sitting Exercises CS rotation Sitting Exercise Name reviewed self HEP Side bilateral Resistance AROM to end range (more L than R) Reps/Minutes x10, 2 sec hold Comments cued taller posture, CS retraction to neutral alignment wall posture Sitting Exercise Name Standing: reviewed Equipment Used towel behind head if able for feedback ext- able self placement Reps/Minutes good understanding/form x5 reps 5 sec hold Comments cued buttocks, TS and chin tuck back head toward wall, no LB arch, CS align chin tuck Reps/Minutes 10 Comments improved alignment Therapeutic Activity Therapeutic Activity rolling mechanics Name supine<>modified sidelying Reps/Minutes 10 min Comments chin nod, scapular lift, core fac to complete trunk alignment stability to complete to sidelying- improved demonstration strength on/off floor transfer Name x1 Comments Education and time spent safe transfer sequencing: allowed UE support on stable chair for stand to high kneel: close SBA, side sit to quadruped Min A coming from R and L side sitting. 10%A today quadruped> stand on blue mat chair/ wooden box for UE support. - Continue each treatment to improved ROM/strength to allow return to Yoga class. PT-OP-T Assessment and Plan Start: 02/24/22 15:55 Freq: Status: Active Protocol: Document 03/25/22 10:32 SP (Rec: 03/25/22 11:45 SP [id number]) Physical Therapy Assessment Goals Two Impairment pain Short Term Goal (STG) Ollie will read for 30 minutes without an increase in baseline pain. 03/12/22: She reports is better posture and holding knitting and reading her book tires and less pain, gaining strength but recently heavy history book is heavier so little more pain and needs rest breaks. STG Duration 4 weeks 03/22/22 progressing Calibration Tester Goal (LTG) Ollie will sit with good posture using props as needed for assistance for one hour without a headache. LTG Duration 8 weeks One Impairment ROM Short Term Goal (STG) Ollie will improve her active cervical rotation to bilaterally 40 degrees. STG Duration MET Calibration Tester Goal (LTG) Ollie will improve her cervical extension to at least 40 degrees. LTG Duration 8 weeks Assessment Summary Assessment Pt found challenging but able to improve cervical flexion lift head off table briefly and rotation in supine against gravity with cues for cervical and trunk alignment and muscular stabilization. Pt required Min A for side sitting to quadruped with much time working on strategies to increase independence to allow getting on floor at home , states HEP in bed isn't as supportive as would like. Physical Therapy Plan Frequency and Duration Frequency of Treatment 2x/Week Duration of treatment (weeks) 12 Plan of Care Start Date 02/25/22 Plan of Care End Date 05/20/22 Therapeutic Interventions Therapeutic Interventions Home Exercise Program,Joint Mobilizations,Manual Therapy, Neuromuscular Re-education, Self-Care/Home Management, Therapeutic Activities, Therapeutic Exercises Modalities Cold Pack/Ice Massage,Electric Stimulation,Hot Packs, Traction- Mechanical Next Visit Focus/Plan Next Note Type Treatment Note Next Visit Plan recheck added supine neck AROM added to HEP and how apply to wall. Continue floor transfers and lifting mechanics to allow return to yoga and HEP on floor her personal goal. POC: Focus on rotation ROM, reducing muscular tension in the posterior neck, improving strength in anterior cervical musculature, can consider modalities
--- NOTE | 2022-03-27 13:01 | PT.OTN ---
Current Diagnoses Cervicalgia (03/27/22) Headache, unspecified (03/27/22) Physical Therapy Treatment Note PT-OP-A Visit Information Start: 02/24/22 15:55 Freq: Status: Active Protocol: Document 03/27/22 12:20 TS (Rec: 03/27/22 13:03 TS [id number]) Out-Patient Physical Therapy Visit Information Visit Information Visit Type Treatment Note Visit Note SPTA Anand lead treatment, PELT DROPPER danilo supervised. Visit Start Time 12:21 Visit Stop Time 01:01 Total Visit Minutes 40 Visit Number 10 Number of PELT DROPPER Visits 2 PT-OP-B Current Condition Start: 02/24/22 15:55 Freq: Status: Active Protocol: Document 02/25/22 11:19 AMB (Rec: 02/25/22 11:34 AMB [id number]) Current Condition History of Current Condition Onset Date 1-1.5 years Current Complaints neck pain and headaches History of Current Condition Headaches towards the end of the day. 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 Thinks she clenches her jaw a lot with dentures. Knitting/ reading and looking down to do so exacerbates her sx. Smoke marijuana to fall asleep. Anytime I've been sitting knitting and reading the headache starts, denies eye strain. Bilateral temples. Bilateral upper traps is where neck pain is. Lying on the floor helps the neck, difficult to get up from the floor. Goes on 1 mile-2 mile walk/ day. Holding the book up higher does seem to help the neck/headache. Used to do yoga before the pandemic, but can't really afford classes. 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 Peripheral neuropathy. PT-OP-C Subjective Start: 02/24/22 15:55 Freq: Status: Active Protocol: Document 03/27/22 12:20 TS (Rec: 03/27/22 13:03 TS [id number]) OP-PT Subjective Patient Comments Patient Comments Pt reports she may have over done some of her exercises and has some pinching in her neck today. PT-OP-J Posture/Palpation/Skin Start: 02/24/22 15:55 Freq: Status: Active Protocol: Document 02/25/22 11:19 AMB (Rec: 02/27/22 12:44 AMB [id number]) Posture Evaluation Comments Posture Comments Flat cervical spine, hypertonicity of upper trapezius Palpation Assessment Location One Palpation Location Neck Palpation Findings Soft Tissue Tightness,Spasm, Muscle Guarding,Tenderness Palpation Details Tightness at upper traps, suboccipitals PT-OP-K Range of Motion Start: 02/24/22 15:55 Freq: Status: Active Protocol: Document 02/25/22 11:15 AMB (Rec: 02/26/22 15:29 AMB [id number]) Cervical Spine Range of Motion Cervical Spine Active Degrees Testing Position Sitting Flexion 50 Extension 27 Rotation Left 34 Rotation Right 32 Lateral Flexion Left 15 Lateral Flexion Right 10 ROM Limitations Soft Tissue Tightness,Bony Restriction,Pain PT-OP-Q Treatments Start: 02/24/22 15:55 Freq: Status: Active Protocol: Document 03/27/22 12:20 TS (Rec: 03/27/22 13:03 TS [id number]) Therapeutic Exercises Supine Exercises Cervical rotation Side bilateral Equipment Used Mat table Reps/Minutes 2x10 Comments Difficulty keeping R shoulder on table CS flexion w/ chin nod Reps/Minutes 2-3 sec hold x5 2 sets (rest btwn sets) Comments cued knees bent, improved lift but challenging flexor weakness core press w/ chin tuck Resistance Small towel roll under posterior head only needed little elevation Equipment Used knees bent, arms straight at side Reps/Minutes 5 s hold 3x5 reps sets Comments cued chin nod neutral flexion, TS lift (rhomb fac), 2 clearance from table Standing Exercises Wall Posture Equipment Used Towel behind head Reps/Minutes x5 reps, 5 sec hold Comments Pt was able to get towel this session behind her head. Cued for soft knees. Therapeutic Activity Therapeutic Activity on/off floor transfer Name x1 Comments Good carryover from previous session. UE support on table to come from kneeling to standing. -Continue each treatment to improved ROM/ strength to allow return to Yoga class. PT-OP-T Assessment and Plan Start: 02/24/22 15:55 Freq: Status: Active Protocol: Document 03/27/22 12:20 TS (Rec: 03/27/22 13:03 TS [id number]) Physical Therapy Assessment Evaluation Complexity Number of Personal Factors/Comorbidities 1-2 Number of Body Systems Impaired 4 or More Clinical Presentation at Evaluation Stable Impairments Impairments Functional Activities,Pain, Posture,Strength Goals Two Impairment pain Short Term Goal (STG) Ollie will read for 30 minutes without an increase in baseline pain. 03/12/22: She reports is better posture and holding knitting and reading her book tires and less pain, gaining strength but recently heavy history book is heavier so little more pain and needs rest breaks. 03/27/22 Goal Met: Is using a pillow to prop up her book so her arms are not as strained when she holds her books. Reports reading her books for more than two hours with no pain. STG Duration 4 weeks 03/22/22, Goal Met 03/27/22 Refresh Technician Goal (LTG) Ollie will sit with good posture using props as needed for assistance for one hour without a headache. 03/27/22: Props her books up with pillows to reduce strain in her arms and for more than two with no pain. LTG Duration 8 weeks One Impairment ROM Short Term Goal (STG) Ollie will improve her active cervical rotation to bilaterally 40 degrees. : AROM cervical L- 46, R 30 STG Duration MET Refresh Technician Goal (LTG) Ollie will improve her cervical extension to at least 40 degrees. 03/27/22: Cervical Ext - 45 LTG Duration 8 weeks. Goal Met 03/27/22 Progress Towards Goals Progress Towards Goals Progressing Toward Goals Assessment Summary Assessment Pt met goal of increasing her cervical ext to 45 deg and her L cervical rotation to 46, R rotation was more limited to 30 deg this session. She progressed her chest press with chin tucks to lifting 2 from mat table. She is improving in her form of floor transfer but still requires UE support from chair/table to come fully into standing. She will continue to benefit from skilled intervention to reduce neck pain and improve floor transfer strength. Physical Therapy Plan Frequency and Duration Frequency of Treatment 2x/Week Duration of treatment (weeks) 12 Plan of Care Start Date 02/25/22 Plan of Care End Date 05/20/22 Therapeutic Interventions Therapeutic Interventions Home Exercise Program,Joint Mobilizations,Manual Therapy, Neuromuscular Re-education, Self-Care/Home Management, Therapeutic Activities, Therapeutic Exercises Modalities Cold Pack/Ice Massage,Electric Stimulation,Hot Packs, Traction- Mechanical Next Visit Focus/Plan Next Note Type Treatment Note Next Visit Plan Reassess R cervical pain and ability to get towel behind her head during wall posture ex. Continue floor transfers and lifting mechanics to allow return to yoga and HEP on floor her personal goal. POC: Focus on rotation ROM, reducing muscular tension in the posterior neck, improving strength in anterior cervical musculature, can consider modalities
--- NOTE | 2022-04-01 13:50 | PT.OTN ---
Current Diagnoses Cervicalgia (04/01/22) Headache, unspecified (04/01/22) Physical Therapy Treatment Note PT-OP-A Visit Information Start: 02/24/22 15:55 Freq: Status: Active Protocol: Document 04/01/22 12:49 TS (Rec: 04/01/22 13:50 TS [id number]) Out-Patient Physical Therapy Visit Information Visit Information Visit Type Treatment Note Visit Note SPTA Anand lead treatment, TRANSIT COACH OPERATOR danilo supervised. Visit Start Time 13:05 Visit Stop Time 13:50 Total Visit Minutes 45 Visit Number 11 Number of TRANSIT COACH OPERATOR Visits 3 PT-OP-B Current Condition Start: 02/24/22 15:55 Freq: Status: Active Protocol: Document 02/25/22 11:19 AMB (Rec: 02/25/22 11:34 AMB [id number]) Current Condition History of Current Condition Onset Date 1-1.5 years Current Complaints neck pain and headaches History of Current Condition Headaches towards the end of the day. 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 Thinks she clenches her jaw a lot with dentures. Knitting/ reading and looking down to do so exacerbates her sx. Smoke marijuana to fall asleep. Anytime I've been sitting knitting and reading the headache starts, denies eye strain. Bilateral temples. Bilateral upper traps is where neck pain is. Lying on the floor helps the neck, difficult to get up from the floor. Goes on 1 mile-2 mile walk/ day. Holding the book up higher does seem to help the neck/headache. Used to do yoga before the pandemic, but can't really afford classes. Treatment Goals Patient/Caregiver Goals Reduce neck pain/headache Prior Functional Status Baseline Function- ADL's Modified Independent Baseline Function- Mobility Modified Independent Current Functional Impairments (Reported) Functional Limitations- ADL's Difficulty enjoying hobbies: reading and knitting Personal Factors Other Personal Factors That May Effect Bilateral shoulder dysfunction Therapy/Recovery with poor flexion/abduction over shoulder height, poor spindle plumber strength. Peripheral neuropathy. PT-OP-C Subjective Start: 02/24/22 15:55 Freq: Status: Active Protocol: Document 04/01/22 12:49 TS (Rec: 04/01/22 13:50 TS [id number]) OP-PT Subjective Patient Comments Patient Comments Pt reports her L neck is hurting her today. She thinks her dentures are not properly aligned and believes it could possibly be causing her pain. She will have the realignment done in May next year. PT-OP-J Posture/Palpation/Skin Start: 02/24/22 15:55 Freq: Status: Active Protocol: Document 02/25/22 11:19 AMB (Rec: 02/27/22 12:44 AMB [id number]) Posture Evaluation Comments Posture Comments Flat cervical spine, hypertonicity of upper trapezius Palpation Assessment Location One Palpation Location Neck Palpation Findings Soft Tissue Tightness,Spasm, Muscle Guarding,Tenderness Palpation Details Tightness at upper traps, suboccipitals PT-OP-K Range of Motion Start: 02/24/22 15:55 Freq: Status: Active Protocol: Document 02/25/22 11:15 AMB (Rec: 02/26/22 15:29 AMB [id number]) Cervical Spine Range of Motion Cervical Spine Active Degrees Testing Position Sitting Flexion 50 Extension 27 Rotation Left 34 Rotation Right 32 Lateral Flexion Left 15 Lateral Flexion Right 10 ROM Limitations Soft Tissue Tightness,Bony Restriction,Pain PT-OP-Q Treatments Start: 02/24/22 15:55 Freq: Status: Active Protocol: Document 04/01/22 12:49 TS (Rec: 04/01/22 13:50 TS [id number]) Therapeutic Exercises Supine Exercises core press w/ chin tuck Resistance Small towel roll under posterior head only needed little elevation Equipment Used arms and legs straight. Reps/Minutes 2 s hold 2x5 reps sets Comments Demonstrating greater lift from table. Sitting Exercises CS rotation Side bilateral Resistance AROM to end range (more L than R) Reps/Minutes x10, 2 sec hold Comments Self cueing for posture and chin tuck, slight discomfort. upper trap stretch Side bilateral Reps/Minutes 30x1 Comments Some slight discomfort but has been doing at home. Standing Exercises Wall Posture Equipment Used Towel behind head Reps/Minutes x5 reps, 5 sec hold Comments Pt demonstrates greater ER to place towel behind head. Cued for soft knees. Manual Therapy Treatment Soft Tissue Mobilization UT, Levator Body Location UT, Levator Mobilization Type Oscillations,Strumming Intensity/Depth Moderate Body Position Supine Comments Pt reported tenderness in Bilateral UT. Joint Mobilizations Scapulothoracic Body Position Sidelying Comments L and R scapula protraction, retraction, inferior and superior. PT-OP-T Assessment and Plan Start: 02/24/22 15:55 Freq: Status: Active Protocol: Document 04/01/22 12:49 TS (Rec: 04/01/22 13:50 TS [id number]) Physical Therapy Assessment Goals Two Impairment pain Short Term Goal (STG) Ollie will read for 30 minutes without an increase in baseline pain. 03/12/22: She reports is better posture and holding knitting and reading her book tires and less pain, gaining strength but recently heavy history book is heavier so little more pain and needs rest breaks. 03/27/22 Goal Met: Is using a pillow to prop up her book so her arms are not as strained when she holds her books. Reports reading her books for more than two hours with no pain. STG Duration 4 weeks 03/22/22, Goal Met 03/27/22 Instructional Design Specialist Goal (LTG) Ollie will sit with good posture using props as needed for assistance for one hour without a headache. 03/27/22: Props her books up with pillows to reduce strain in her arms and for more than two with no pain. LTG Duration 8 weeks One Impairment ROM Short Term Goal (STG) Ollie will improve her active cervical rotation to bilaterally 40 degrees. : AROM cervical L- 46, R 30. 04/01/22- reported increase L UT pain not able to rotate as far to R. Did not measure. STG Duration MET Alf Goal (LTG) Ollie will improve her cervical extension to at least 40 degrees. 03/27/22: Cervical Ext - 45 LTG Duration 8 weeks. Goal Met 03/27/22 Assessment Summary Assessment Pt is demonstrating good carryover of exercises and HEP . She demonstrates good self- cueing for chin tucks and scap retraction. Demonstrates easy transition from supine to sit . She continues to progress her chest press with increasing lift from table from previous session. Pt will benefit from continued intervention to progress independence in floor transfer and decrease pain symptoms. Physical Therapy Plan Frequency and Duration Frequency of Treatment 2x/Week Duration of treatment (weeks) 12 Plan of Care Start Date 02/25/22 Plan of Care End Date 05/20/22 Therapeutic Interventions Therapeutic Interventions Home Exercise Program,Joint Mobilizations,Manual Therapy, Neuromuscular Re-education, Self-Care/Home Management, Therapeutic Activities, Therapeutic Exercises Modalities Cold Pack/Ice Massage,Electric Stimulation,Hot Packs, Traction- Mechanical Next Visit Focus/Plan Next Visit Plan Assess L UT pain. Continue STM (assess response to last sessions STM) and scapulothoracic mobs. Trial scapular clocks for increasing ROM. Assess floor transfer. Remeasure cervical rotation.
--- NOTE | 2022-04-08 11:15 | PT.OTN ---
Current Diagnoses Cervicalgia (04/08/22) Headache, unspecified (04/08/22) Physical Therapy Treatment Note PT-OP-A Visit Information Start: 02/24/22 15:55 Freq: Status: Active Protocol: Document 04/08/22 10:32 TS (Rec: 04/08/22 11:36 TS [id number]) Out-Patient Physical Therapy Visit Information Visit Information Visit Type Treatment Note Visit Note SPTA Anand lead treatment, NURSE NAVIGATOR danilo supervised and directed progression. Visit Start Time 10:35 Visit Stop Time 11:15 Total Visit Minutes 40 Visit Number 12 Number of NURSE NAVIGATOR Visits 4 PT-OP-B Current Condition Start: 02/24/22 15:55 Freq: Status: Active Protocol: Document 02/25/22 11:19 AMB (Rec: 02/25/22 11:34 AMB [id number]) Current Condition History of Current Condition Onset Date 1-1.5 years Current Complaints neck pain and headaches History of Current Condition Headaches towards the end of the day. History of multiple accidents that cause shoulder/ elbow dysfunction, reduced paper feeder strength. Thinks she clenches her jaw a lot with dentures. Knitting/ reading and looking down to do so exacerbates her sx. Smoke marijuana to fall asleep. Anytime I've been sitting knitting and reading the headache starts, denies eye strain. Bilateral temples. Bilateral upper traps is where neck pain is. Lying on the floor helps the neck, difficult to get up from the floor. Goes on 1 mile-2 mile walk/ day. Holding the book up higher does seem to help the neck/headache. Used to do yoga before the pandemic, but can't really afford classes. Treatment Goals Patient/Caregiver Goals Reduce neck pain/headache Prior Functional Status Baseline Function- ADL's Modified Independent Baseline Function- Mobility Modified Independent Current Functional Impairments (Reported) Functional Limitations- ADL's Difficulty enjoying hobbies: reading and knitting Personal Factors Other Personal Factors That May Effect Bilateral shoulder dysfunction Therapy/Recovery with poor flexion/abduction over shoulder height, poor paper feeder strength. Peripheral neuropathy. PT-OP-C Subjective Start: 02/24/22 15:55 Freq: Status: Active Protocol: Document 04/08/22 10:32 TS (Rec: 04/08/22 11:36 TS [id number]) OP-PT Subjective Patient Comments Patient Comments Pt reports she has been doing her HEP and her pain is getting better. Feels her cervical ROM is improving. PT-OP-J Posture/Palpation/Skin Start: 02/24/22 15:55 Freq: Status: Active Protocol: Document 02/25/22 11:19 AMB (Rec: 02/27/22 12:44 AMB [id number]) Posture Evaluation Comments Posture Comments Flat cervical spine, hypertonicity of upper trapezius Palpation Assessment Location One Palpation Location Neck Palpation Findings Soft Tissue Tightness,Spasm, Muscle Guarding,Tenderness Palpation Details Tightness at upper traps, suboccipitals PT-OP-K Range of Motion Start: 02/24/22 15:55 Freq: Status: Active Protocol: Document 02/25/22 11:15 AMB (Rec: 02/26/22 15:29 AMB [id number]) Cervical Spine Range of Motion Cervical Spine Active Degrees Testing Position Sitting Flexion 50 Extension 27 Rotation Left 34 Rotation Right 32 Lateral Flexion Left 15 Lateral Flexion Right 10 ROM Limitations Soft Tissue Tightness,Bony Restriction,Pain PT-OP-Q Treatments Start: 02/24/22 15:55 Freq: Status: Active Protocol: Document 04/08/22 10:32 TS (Rec: 04/08/22 11:36 TS [id number]) Therapeutic Exercises Supine Exercises Single Knee to Chest Supine Exercise Name Single knee to chest with head lifts Reps/Minutes 1x15 Comments Greater lift with head to 5 Sidelying Exercises open book Side right Equipment Used LUE long arm axis difficult, Short arm with elbow bent easier Reps/Minutes x5 reps long arm, x5 reps short arm Comments Tactile cues for scapular glide. Good fespone to short arm. Sitting Exercises Scap Retraction Sitting Exercise Name Scap retraction w/ chin tucks Equipment Used Mirror Reps/Minutes 2x10 Comments Improved form with mirror feedback CS rotation Side bilateral Reps/Minutes x10, 2 sec hold Comments Good form and carryover of chin tucks Therapeutic Activity Therapeutic Activity rolling mechanics Reps/Minutes 1x10 Comments Bilateral rolling, emphasis on rolling to left side for lift of R shoulder. on/off floor transfer Name x2 Comments UE support on chair, cues for chin tucks and core activation . Find pt to be safe to perform at home ex on floor. PT-OP-T Assessment and Plan Start: 02/24/22 15:55 Freq: Status: Active Protocol: Document 04/08/22 10:32 TS (Rec: 04/08/22 11:36 TS [id number]) Physical Therapy Assessment Goals Three Impairment Transfers Short Term Goal (STG) Ollie will perform a floor transfer with SBA with environmental support so that she can get on the floor to perform her HEP and yoga. STG Duration 4 weeks Long-Term Goal (LTG) Ollie will improve her deep neck flexor strength so that she can lift her head from supine for 5 seconds to allow better rolling from supine to sit without an increase in pain. LTG Duration 8 weeks Two Impairment pain Short Term Goal (STG) Ollie will read for 30 minutes without an increase in baseline pain. 03/12/22: She reports is better posture and holding knitting and reading her book tires and less pain, gaining strength but recently heavy history book is heavier so little more pain and needs rest breaks. 03/27/22 Goal Met: Is using a pillow to prop up her book so her arms are not as strained when she holds her books. Reports reading her books for more than two hours with no pain. STG Duration 4 weeks 03/22/22, Goal Met 03/27/22 Lyric Writer Goal (LTG) Ollie will sit with good posture using props as needed for assistance for one hour without a headache. 03/27/22: Props her books up with pillows to reduce strain in her arms and for more than two with no pain. LTG Duration 8 weeks One Impairment ROM Short Term Goal (STG) Ollie will improve her active cervical rotation to bilaterally 40 degrees. : AROM cervical L- 46, R 30. 04/01/22- reported increase L UT pain not able to rotate as far to R. Did not measure. STG Duration MET Long-Term Goal (LTG) Ollie will improve her cervical extension to at least 40 degrees. 03/27/22: Cervical Ext - 45 LTG Duration 8 weeks. Goal Met 03/27/22 Assessment Summary Assessment Pt progressed her head lift from supine to 5 from 2 in previous session. She progressed her floor transfers x2 with good carryover of chin tuck, core and glute activation. Cleared pt to perfrom ex on yoga mat at home . Pt is doing very well with her HEP and ex in clinic. Physical Therapy Plan Next Visit Focus/Plan Next Note Type Treatment Note Next Visit Plan Assess goal #3 and carryover of exercises in supine against gravity.
--- NOTE | 2022-04-15 12:44 | PT.OTN ---
Current Diagnoses Cervicalgia (04/15/22) Headache, unspecified (04/15/22) Physical Therapy Treatment Note PT-OP-A Visit Information Start: 02/24/22 15:55 Freq: Status: Active Protocol: Document 04/15/22 10:36 AMB (Rec: 04/15/22 11:36 AMB [id number]) Out-Patient Physical Therapy Visit Information Visit Information Visit Type Treatment Note Visit Note SPTA Anand lead treatment, BULK PLANT AGENT danilo supervised and directed progression. Visit Start Time 10:35 Visit Stop Time 11:15 Total Visit Minutes 40 Visit Number 13 PT-OP-B Current Condition Start: 02/24/22 15:55 Freq: Status: Active Protocol: Document 02/25/22 11:19 AMB (Rec: 02/25/22 11:34 AMB [id number]) Current Condition History of Current Condition Onset Date 1-1.5 years Current Complaints neck pain and headaches History of Current Condition Headaches towards the end of the day. History of multiple accidents that cause shoulder/ elbow dysfunction, reduced mobile sales consultant strength. Thinks she clenches her jaw a lot with dentures. Knitting/ reading and looking down to do so exacerbates her sx. Smoke marijuana to fall asleep. Anytime I've been sitting knitting and reading the headache starts, denies eye strain. Bilateral temples. Bilateral upper traps is where neck pain is. Lying on the floor helps the neck, difficult to get up from the floor. Goes on 1 mile-2 mile walk/ day. Holding the book up higher does seem to help the neck/headache. Used to do yoga before the pandemic, but can't really afford classes. Treatment Goals Patient/Caregiver Goals Reduce neck pain/headache Prior Functional Status Baseline Function- ADL's Modified Independent Baseline Function- Mobility Modified Independent Current Functional Impairments (Reported) Functional Limitations- ADL's Difficulty enjoying hobbies: reading and knitting Personal Factors Other Personal Factors That May Effect Bilateral shoulder dysfunction Therapy/Recovery with poor flexion/abduction over shoulder height, poor mobile sales consultant strength. Peripheral neuropathy. PT-OP-C Subjective Start: 02/24/22 15:55 Freq: Status: Active Protocol: Document 04/15/22 10:30 AMB (Rec: 04/15/22 12:09 AMB [id number]) OP-PT Subjective Patient Comments Patient Comments Ollie is reporting she is feeling well, she does continue to have pain at the end of the day at times, especially if she only does her exercises 1x/day instead of 2. PT-OP-J Posture/Palpation/Skin Start: 02/24/22 15:55 Freq: Status: Active Protocol: Document 02/25/22 11:19 AMB (Rec: 02/27/22 12:44 AMB [id number]) Posture Evaluation Comments Posture Comments Flat cervical spine, hypertonicity of upper trapezius Palpation Assessment Location One Palpation Location Neck Palpation Findings Soft Tissue Tightness,Spasm, Muscle Guarding,Tenderness Palpation Details Tightness at upper traps, suboccipitals PT-OP-K Range of Motion Start: 02/24/22 15:55 Freq: Status: Active Protocol: Document 02/25/22 11:15 AMB (Rec: 02/26/22 15:29 AMB [id number]) Cervical Spine Range of Motion Cervical Spine Active Degrees Testing Position Sitting Flexion 50 Extension 27 Rotation Left 34 Rotation Right 32 Lateral Flexion Left 15 Lateral Flexion Right 10 ROM Limitations Soft Tissue Tightness,Bony Restriction,Pain PT-OP-Q Treatments Start: 02/24/22 15:55 Freq: Status: Active Protocol: Document 04/15/22 10:30 AMB (Rec: 04/15/22 12:09 AMB [id number]) Therapeutic Exercises Supine Exercises Cervical rotation Side bilateral Equipment Used Mat table Reps/Minutes 2x10 Comments Difficulty keeping R shoulder on table CS flexion w/ chin nod Reps/Minutes 5 sec hold x5 2 sets (rest btwn sets) Comments cued knees bent, improved lift but challenging flexor weakness Sitting Exercises Scap Retraction Sitting Exercise Name Scap retraction w/ chin tucks Equipment Used Mirror Reps/Minutes 2x10 Comments Improved form with mirror feedback Manual Therapy Treatment Soft Tissue Mobilization UT, Levator Body Location UT, Levator Mobilization Type Oscillations,Strumming Intensity/Depth Moderate Body Position Supine Comments Pt reported tenderness in Bilateral UT. PT-OP-T Assessment and Plan Start: 02/24/22 15:55 Freq: Status: Active Protocol: Document 04/15/22 10:36 AMB (Rec: 04/15/22 11:36 AMB [id number]) Physical Therapy Assessment Goals Four Impairment ADLs Short Term Goal (STG) Ollie will read for 60 minutes without needing to use props and without neck pain. STG Duration 4 weeks Hedis Abstractor Goal (LTG) Ollie will cook a meal for 30 minutes without neck pain. LTG Duration 8 weeks Three Impairment Transfers Short Term Goal (STG) Ollie will perform a floor transfer with SBA with environmental support so that she can get on the floor to perform her HEP and yoga. STG Duration MET Hedis Abstractor Goal (LTG) Ollie will improve her deep neck flexor strength so that she can lift her head from supine for 5 seconds to allow better rolling from supine to sit without an increase in pain. LTG Duration MET Two Impairment pain Short Term Goal (STG) Ollie will read for 30 minutes without an increase in baseline pain. 03/12/22: She reports is better posture and holding knitting and reading her book tires and less pain, gaining strength but recently heavy history book is heavier so little more pain and needs rest breaks. 03/27/22 Goal Met: Is using a pillow to prop up her book so her arms are not as strained when she holds her books. Reports reading her books for more than two hours with no pain. STG Duration MET Retirement Goal (LTG) Ollie will sit with good posture using props as needed for assistance for one hour without a headache. 03/27/22: Props her books up with pillows to reduce strain in her arms and for more than two with no pain. LTG Duration MET One Impairment ROM Short Term Goal (STG) Ollie will improve her active cervical rotation to bilaterally 70 degrees. 04/15: 55 bilaterally STG Duration 4 weeks Hedis Abstractor Goal (LTG) Ollie will improve her cervical extension to at least 40 degrees. 03/27/22: Cervical Ext - 45 LTG Duration MET Assessment Summary Assessment Ollie attends physical therapy with overall improved neck ROM and strength. She continues to have neck pain at the end of her day if she does not do her exercises, or if she reads for an extended period of time. She does continue to have some neck stiffness. She is very motivated with her exercises, and is very excited she can do her exercises on the floor again after being able to do floor transfers at home. She will benefit from a short bout of continued PT to finalize her HEP, improve her ROM, cervical strength,and reduce her pain. Physical Therapy Plan Frequency and Duration Frequency of Treatment 2x/Week Duration of treatment (weeks) 6 Plan of Care Start Date 04/15/22 Plan of Care End Date 05/27/22 Therapeutic Interventions Therapeutic Interventions Home Exercise Program,Joint Mobilizations,Manual Therapy, Neuromuscular Re-education, Self-Care/Home Management, Therapeutic Activities, Therapeutic Exercises Modalities Cold Pack/Ice Massage,Electric Stimulation,Hot Packs, Traction- Mechanical Next Visit Focus/Plan Next Note Type Treatment Note Next Visit Plan Progress ROM, cervical strengthening,
--- NOTE | 2022-04-15 12:45 | PT.OPPOC ---
Physical, Occupational & Speech Therapy At [facility] Current Diagnoses Cervicalgia (04/15/22) Headache, unspecified (04/15/22) Visit Care Team Role Provider Type KELVIN Brownlee Attending Provider Advanced Batch Room Technician Family Provider Primary Care Provider Referring Provider Specialty: Family Practice Address: [address] [place] [address], [facility] Email: [email or web address] Plan Of Care PT-OP-T Assessment and Plan Start: 02/24/22 15:55 Freq: Status: Active Protocol: Document 04/15/22 10:36 AMB (Rec: 04/15/22 11:36 AMB [id number]) Physical Therapy Assessment Goals Four Impairment ADLs Short Term Goal (STG) Ollie will read for 60 minutes without needing to use props and without neck pain. STG Duration 4 weeks Custodial Goal (LTG) Ollie will cook a meal for 30 minutes without neck pain. LTG Duration 8 weeks Three Impairment Transfers Short Term Goal (STG) Ollie will perform a floor transfer with SBA with environmental support so that she can get on the floor to perform her HEP and yoga. STG Duration MET Custodial Goal (LTG) Ollie will improve her deep neck flexor strength so that she can lift her head from supine for 5 seconds to allow better rolling from supine to sit without an increase in pain. LTG Duration MET Two Impairment pain Short Term Goal (STG) Ollie will read for 30 minutes without an increase in baseline pain. 03/12/22: She reports is better posture and holding knitting and reading her book tires and less pain, gaining strength but recently heavy history book is heavier so little more pain and needs rest breaks. 03/27/22 Goal Met: Is using a pillow to prop up her book so her arms are not as strained when she holds her books. Reports reading her books for more than two hours with no pain. STG Duration MET Adult Psychiatrist Goal (LTG) Ollie will sit with good posture using props as needed for assistance for one hour without a headache. 03/27/22: Props her books up with pillows to reduce strain in her arms and for more than two with no pain. LTG Duration MET One Impairment ROM Short Term Goal (STG) Ollie will improve her active cervical rotation to bilaterally 70 degrees. 04/15: 55 bilaterally STG Duration 4 weeks Adult Psychiatrist Goal (LTG) Ollie will improve her cervical extension to at least 40 degrees. 03/27/22: Cervical Ext - 45 LTG Duration MET Assessment Summary Assessment Ollie attends physical therapy with overall improved neck ROM and strength. She continues to have neck pain at the end of her day if she does not do her exercises, or if she reads for an extended period of time. She does continue to have some neck stiffness. She is very motivated with her exercises, and is very excited she can do her exercises on the floor again after being able to do floor transfers at home. She will benefit from a short bout of continued PT to finalize her HEP, improve her ROM, cervical strength,and reduce her pain. Physical Therapy Plan Frequency and Duration Frequency of Treatment 2x/Week Duration of treatment (weeks) 6 Plan of Care Start Date 04/15/22 Plan of Care End Date 05/27/22 Therapeutic Interventions Therapeutic Interventions Home Exercise Program,Joint Mobilizations,Manual Therapy, Neuromuscular Re-education, Self-Care/Home Management, Therapeutic Activities, Therapeutic Exercises Modalities Cold Pack/Ice Massage,Electric Stimulation,Hot Packs, Traction- Mechanical Next Visit Focus/Plan Next Note Type Treatment Note Next Visit Plan Progress ROM, cervical strengthening, Plan of Care Dates Plan of Care Start Date 04/15/22 Plan of Care End Date 05/27/22 Electronically Signed by: Thelma Crawford, PT 04/15/22 [id number] If you are in agreement with this Plan of Care, please return a signed and dated copy. I have reviewed this Plan of Care and certify that the skilled therapy services above are required to meet the patient?s needs. Physician Signature Date Printed Name and Credentials Clinical Instructor Signature Printed Name and Credentials
--- NOTE | 2022-04-22 12:10 | PT.OTN ---
Current Diagnoses Cervicalgia (04/22/22) Headache, unspecified (04/22/22) Physical Therapy Treatment Note PT-OP-A Visit Information Start: 02/24/22 15:55 Freq: Status: Active Protocol: Document 04/22/22 11:15 AMB (Rec: 04/22/22 12:09 AMB [id number]) Out-Patient Physical Therapy Visit Information Visit Information Visit Type Treatment Note Visit Start Time 11:15 Visit Stop Time 12:00 Total Visit Minutes 40 Visit Number 14 PT-OP-B Current Condition Start: 02/24/22 15:55 Freq: Status: Active Protocol: Document 02/25/22 11:19 AMB (Rec: 02/25/22 11:34 AMB [id number]) Current Condition History of Current Condition Onset Date 1-1.5 years Current Complaints neck pain and headaches History of Current Condition Headaches towards the end of the day. 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 Thinks she clenches her jaw a lot with dentures. Knitting/ reading and looking down to do so exacerbates her sx. Smoke marijuana to fall asleep. Anytime I've been sitting knitting and reading the headache starts, denies eye strain. Bilateral temples. Bilateral upper traps is where neck pain is. Lying on the floor helps the neck, difficult to get up from the floor. Goes on 1 mile-2 mile walk/ day. Holding the book up higher does seem to help the neck/headache. Used to do yoga before the pandemic, but can't really afford classes. 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 Peripheral neuropathy. PT-OP-C Subjective Start: 02/24/22 15:55 Freq: Status: Active Protocol: Document 04/22/22 11:15 AMB (Rec: 04/22/22 12:09 AMB [id number]) OP-PT Subjective Patient Comments Patient Comments Yesterday had a kink in her neck yesterday. She can feel the neck when doing her chin tuck. L upper trap kicks in with chin tucks. PT-OP-J Posture/Palpation/Skin Start: 02/24/22 15:55 Freq: Status: Active Protocol: Document 02/25/22 11:19 AMB (Rec: 02/27/22 12:44 AMB [id number]) Posture Evaluation Comments Posture Comments Flat cervical spine, hypertonicity of upper trapezius Palpation Assessment Location One Palpation Location Neck Palpation Findings Soft Tissue Tightness,Spasm, Muscle Guarding,Tenderness Palpation Details Tightness at upper traps, suboccipitals PT-OP-K Range of Motion Start: 02/24/22 15:55 Freq: Status: Active Protocol: Document 02/25/22 11:15 AMB (Rec: 02/26/22 15:29 AMB [id number]) Cervical Spine Range of Motion Cervical Spine Active Degrees Testing Position Sitting Flexion 50 Extension 27 Rotation Left 34 Rotation Right 32 Lateral Flexion Left 15 Lateral Flexion Right 10 ROM Limitations Soft Tissue Tightness,Bony Restriction,Pain PT-OP-Q Treatments Start: 02/24/22 15:55 Freq: Status: Active Protocol: Document 04/22/22 11:15 AMB (Rec: 04/22/22 12:09 AMB [id number]) Therapeutic Exercises Supine Exercises Cervical rotation Side bilateral Equipment Used Mat table Reps/Minutes 2x10 CS flexion w/ chin nod Reps/Minutes 3 sec hold x5 2 sets (rest btwn sets) Comments cued knees bent, improved lift but challenging flexor weakness Manual Therapy Treatment Soft Tissue Mobilization UT, Levator Body Location UT, Levator Mobilization Type Oscillations,Strumming Intensity/Depth Moderate Body Position Supine Comments Pt reported tenderness in L>R suboccipitals Body Location MFR Comments continue parapsinals Manual Techniques 1 Type manual stretching Comments suboccipitals, levator scap, upper trap PT-OP-T Assessment and Plan Start: 02/24/22 15:55 Freq: Status: Active Protocol: Document 04/22/22 11:15 AMB (Rec: 04/22/22 12:09 AMB [id number]) Physical Therapy Assessment Goals Four Impairment ADLs Short Term Goal (STG) Ollie will read for 60 minutes without needing to use props and without neck pain. STG Duration 4 weeks Prison Goal (LTG) Ollie will cook a meal for 30 minutes without neck pain. LTG Duration 8 weeks Three Impairment Transfers Short Term Goal (STG) Ollie will perform a floor transfer with SBA with environmental support so that she can get on the floor to perform her HEP and yoga. STG Duration MET Prison Goal (LTG) Ollie will improve her deep neck flexor strength so that she can lift her head from supine for 5 seconds to allow better rolling from supine to sit without an increase in pain. LTG Duration MET Two Impairment pain Short Term Goal (STG) Ollie will read for 30 minutes without an increase in baseline pain. 03/12/22: She reports is better posture and holding knitting and reading her book tires and less pain, gaining strength but recently heavy history book is heavier so little more pain and needs rest breaks. 03/27/22 Goal Met: Is using a pillow to prop up her book so her arms are not as strained when she holds her books. Reports reading her books for more than two hours with no pain. STG Duration MET Prison Goal (LTG) Ollie will sit with good posture using props as needed for assistance for one hour without a headache. 03/27/22: Props her books up with pillows to reduce strain in her arms and for more than two with no pain. LTG Duration MET One Impairment ROM Short Term Goal (STG) Ollie will improve her active cervical rotation to bilaterally 70 degrees. 04/15: 55 bilaterally STG Duration 4 weeks Public Speaker Goal (LTG) Ollie will improve her cervical extension to at least 40 degrees. 03/27/22: Cervical Ext - 45 LTG Duration MET Assessment Summary Assessment Ollie did better after manual therapy. Decreased chin tuck hold from 5 to 3 to reduce strain and UT compensation. Physical Therapy Plan Frequency and Duration Frequency of Treatment 2x/Week Duration of treatment (weeks) 6 Plan of Care Start Date 04/15/22 Plan of Care End Date 05/27/22 Therapeutic Interventions Therapeutic Interventions Home Exercise Program,Joint Mobilizations,Manual Therapy, Neuromuscular Re-education, Self-Care/Home Management, Therapeutic Activities, Therapeutic Exercises Modalities Cold Pack/Ice Massage,Electric Stimulation,Hot Packs, Traction- Mechanical Next Visit Focus/Plan Next Note Type Treatment Note Next Visit Plan Progress ROM, cervical strengthening,
--- NOTE | 2022-04-29 13:22 | PT-OP ANOTE ---
Pt canceled due to reports of being sick.
--- NOTE | 2022-05-02 12:30 | PT-OP ANOTE ---
Pt did not show for today's appt, called phone in computer out of service. SENIOR GL ACCOUNTANT called daughter listed as alternate contact was provided pt's cell # [phone]. SENIOR GL ACCOUNTANT called pt and left message on newly given cell regarding missed appt and 05/06 next appt. SENIOR GL ACCOUNTANT called pt's daughter back and stated didnt get through to pt but left a message and also told daughter pt did call and cancelled appt on 04/29 feeling sick. Daughter stated will be calling pt and a neighbor to check in on her, has keys to her appt for safety.
--- NOTE | 2022-05-06 14:09 | PT.OTN ---
Current Diagnoses Cervicalgia (05/06/22) Headache, unspecified (05/06/22) Physical Therapy Treatment Note PT-OP-A Visit Information Start: 02/24/22 15:55 Freq: Status: Active Protocol: Document 05/06/22 10:25 AMB (Rec: 05/06/22 11:17 AMB [id number]) Out-Patient Physical Therapy Visit Information Visit Information Visit Type Treatment Note Visit Start Time 10:30 Visit Stop Time 11:15 Total Visit Minutes 45 Visit Number 16 PT-OP-B Current Condition Start: 02/24/22 15:55 Freq: Status: Active Protocol: Document 02/25/22 11:19 AMB (Rec: 02/25/22 11:34 AMB [id number]) Current Condition History of Current Condition Onset Date 1-1.5 years Current Complaints neck pain and headaches History of Current Condition Headaches towards the end of the day. 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 Thinks she clenches her jaw a lot with dentures. Knitting/ reading and looking down to do so exacerbates her sx. Smoke marijuana to fall asleep. Anytime I've been sitting knitting and reading the headache starts, denies eye strain. Bilateral temples. Bilateral upper traps is where neck pain is. Lying on the floor helps the neck, difficult to get up from the floor. Goes on 1 mile-2 mile walk/ day. Holding the book up higher does seem to help the neck/headache. Used to do yoga before the pandemic, but can't really afford classes. Treatment Goals Patient/Caregiver Goals Reduce neck pain/headache Prior Functional Status Baseline Function- ADL's Modified Independent Baseline Function- Mobility Modified Independent Current Functional Impairments (Reported) Functional Limitations- ADL's Difficulty enjoying hobbies: reading and knitting Personal Factors Other Personal Factors That May Effect Bilateral shoulder dysfunction Therapy/Recovery with poor flexion/abduction over shoulder height, poor overlocker strength. Peripheral neuropathy. PT-OP-C Subjective Start: 02/24/22 15:55 Freq: Status: Active Protocol: Document 05/06/22 10:25 AMB (Rec: 05/06/22 11:17 AMB [id number]) OP-PT Subjective Patient Comments Patient Comments Pt had the flu last week, was unable to exercise for 2 days due to that, but otherwise has kept to doing her exercises. PT-OP-J Posture/Palpation/Skin Start: 02/24/22 15:55 Freq: Status: Active Protocol: Document 02/25/22 11:19 AMB (Rec: 02/27/22 12:44 AMB [id number]) Posture Evaluation Comments Posture Comments Flat cervical spine, hypertonicity of upper trapezius Palpation Assessment Location One Palpation Location Neck Palpation Findings Soft Tissue Tightness,Spasm, Muscle Guarding,Tenderness Palpation Details Tightness at upper traps, suboccipitals PT-OP-K Range of Motion Start: 02/24/22 15:55 Freq: Status: Active Protocol: Document 02/25/22 11:15 AMB (Rec: 02/26/22 15:29 AMB [id number]) Cervical Spine Range of Motion Cervical Spine Active Degrees Testing Position Sitting Flexion 50 Extension 27 Rotation Left 34 Rotation Right 32 Lateral Flexion Left 15 Lateral Flexion Right 10 ROM Limitations Soft Tissue Tightness,Bony Restriction,Pain PT-OP-Q Treatments Start: 02/24/22 15:55 Freq: Status: Active Protocol: Document 05/06/22 13:58 AMB (Rec: 05/06/22 14:08 AMB [id number]) Therapeutic Exercises Supine Exercises Cervical rotation Side bilateral Equipment Used Mat table Reps/Minutes 2x10 Comments Cues for chin tuck CS flexion w/ chin nod Reps/Minutes 3 sec hold x5 2 sets (rest btwn sets) Comments cued knees bent, improved lift but challenging flexor weakness Standing Exercises Step outs Side left Equipment Used LVL 2 Reps/Minutes 1x10 Comments Cues for chin tuck, upright posture, ecceentric control Rows Side bilateral Equipment Used LVL 2 Reps/Minutes 2x10 Comments Pt reports feels good, cues for chin tuck Manual Therapy Treatment Soft Tissue Mobilization self STM on door Comments due to pt's UE impairment, suggetsted corner of door to get rhomboids, pt had some increased pain. UT, Levator Body Location UT, Levator Mobilization Type Oscillations,Strumming Intensity/Depth Moderate Body Position Supine Comments Pt reported tenderness in L>R, felt relief with manual therapy. parascapular muscles Body Location levator scap, rhomboids Comments L>R PT-OP-T Assessment and Plan Start: 02/24/22 15:55 Freq: Status: Active Protocol: Document 05/06/22 10:25 AMB (Rec: 05/06/22 11:17 AMB [id number]) Physical Therapy Assessment Goals Four Impairment ADLs Short Term Goal (STG) Ollie will read for 60 minutes without needing to use props and without neck pain. STG Duration 4 weeks Detention Goal (LTG) Ollie will cook a meal for 30 minutes without neck pain. LTG Duration 8 weeks Three Impairment Transfers Short Term Goal (STG) Ollie will perform a floor transfer with SBA with environmental support so that she can get on the floor to perform her HEP and yoga. STG Duration MET Detention Goal (LTG) Ollie will improve her deep neck flexor strength so that she can lift her head from supine for 5 seconds to allow better rolling from supine to sit without an increase in pain. LTG Duration MET Two Impairment pain Short Term Goal (STG) Ollie will read for 30 minutes without an increase in baseline pain. 03/12/22: She reports is better posture and holding knitting and reading her book tires and less pain, gaining strength but recently heavy history book is heavier so little more pain and needs rest breaks. 03/27/22 Goal Met: Is using a pillow to prop up her book so her arms are not as strained when she holds her books. Reports reading her books for more than two hours with no pain. STG Duration MET Detention Goal (LTG) Ollie will sit with good posture using props as needed for assistance for one hour without a headache. 03/27/22: Props her books up with pillows to reduce strain in her arms and for more than two with no pain. LTG Duration MET One Impairment ROM Short Term Goal (STG) Ollie will improve her active cervical rotation to bilaterally 70 degrees. 04/15: 55 bilaterally STG Duration 4 weeks Laboratory Administrative Director Goal (LTG) Ollie will improve her cervical extension to at least 40 degrees. 03/27/22: Cervical Ext - 45 LTG Duration MET Assessment Summary Assessment Pt notices L UT all the time feels like a knot continues to be present. UP to 3-4 rows with t band. [place] some discomfort with doorway STM, but felt better afterwars. Physical Therapy Plan Frequency and Duration Frequency of Treatment 2x/Week Duration of treatment (weeks) 6 Plan of Care Start Date 04/15/22 Plan of Care End Date 05/27/22 Therapeutic Interventions Therapeutic Interventions Home Exercise Program,Joint Mobilizations,Manual Therapy, Neuromuscular Re-education, Self-Care/Home Management, Therapeutic Activities, Therapeutic Exercises Modalities Cold Pack/Ice Massage,Electric Stimulation,Hot Packs, Traction- Mechanical Next Visit Focus/Plan Next Note Type Treatment Note Next Visit Plan Progress ROM, cervical strengthening, assess carryover of rows, continue scap strenghtening.
--- NOTE | 2022-05-09 15:01 | PT.OTN ---
Current Diagnoses Cervicalgia (05/09/22) Headache, unspecified (05/09/22) Physical Therapy Treatment Note PT-OP-A Visit Information Start: 02/24/22 15:55 Freq: Status: Active Protocol: Document 05/09/22 14:30 AMB (Rec: 05/09/22 14:45 AMB [id number]) Out-Patient Physical Therapy Visit Information Visit Information Visit Type Treatment Note Visit Start Time 14:30 Visit Stop Time 14:45 Total Visit Minutes 15 Visit Number 17 PT-OP-B Current Condition Start: 02/24/22 15:55 Freq: Status: Active Protocol: Document 02/25/22 11:19 AMB (Rec: 02/25/22 11:34 AMB [id number]) Current Condition History of Current Condition Onset Date 1-1.5 years Current Complaints neck pain and headaches History of Current Condition Headaches towards the end of the day. 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 Thinks she clenches her jaw a lot with dentures. Knitting/ reading and looking down to do so exacerbates her sx. Smoke marijuana to fall asleep. Anytime I've been sitting knitting and reading the headache starts, denies eye strain. Bilateral temples. Bilateral upper traps is where neck pain is. Lying on the floor helps the neck, difficult to get up from the floor. Goes on 1 mile-2 mile walk/ day. Holding the book up higher does seem to help the neck/headache. Used to do yoga before the pandemic, but can't really afford classes. 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 Peripheral neuropathy. PT-OP-C Subjective Start: 02/24/22 15:55 Freq: Status: Active Protocol: Document 05/09/22 14:30 AMB (Rec: 05/09/22 14:45 AMB [id number]) OP-PT Subjective Patient Comments Patient Comments Pt is doing well, continues to have a couple knots in the left side that continue to be problematic. PT-OP-J Posture/Palpation/Skin Start: 02/24/22 15:55 Freq: Status: Active Protocol: Document 02/25/22 11:19 AMB (Rec: 02/27/22 12:44 AMB [id number]) Posture Evaluation Comments Posture Comments Flat cervical spine, hypertonicity of upper trapezius Palpation Assessment Location One Palpation Location Neck Palpation Findings Soft Tissue Tightness,Spasm, Muscle Guarding,Tenderness Palpation Details Tightness at upper traps, suboccipitals PT-OP-K Range of Motion Start: 02/24/22 15:55 Freq: Status: Active Protocol: Document 02/25/22 11:15 AMB (Rec: 02/26/22 15:29 AMB [id number]) Cervical Spine Range of Motion Cervical Spine Active Degrees Testing Position Sitting Flexion 50 Extension 27 Rotation Left 34 Rotation Right 32 Lateral Flexion Left 15 Lateral Flexion Right 10 ROM Limitations Soft Tissue Tightness,Bony Restriction,Pain PT-OP-Q Treatments Start: 02/24/22 15:55 Freq: Status: Active Protocol: Document 05/09/22 14:30 AMB (Rec: 05/09/22 14:45 AMB [id number]) Therapeutic Exercises Supine Exercises Cervical rotation Side bilateral Equipment Used Mat table Reps/Minutes 2x10 Comments Cues for chin tuck Standing Exercises Step outs Side left Equipment Used LVL 2 Reps/Minutes 1x10 Comments Cues for chin tuck, upright posture, ecceentric control Rows Side bilateral Equipment Used LVL 2 Reps/Minutes 2x10 Comments Pt reports feels good, cues for chin tuck Manual Therapy Treatment Soft Tissue Mobilization UT, Levator Body Position Supine PT-OP-T Assessment and Plan Start: 02/24/22 15:55 Freq: Status: Active Protocol: Document 05/09/22 14:30 AMB (Rec: 05/09/22 14:45 AMB [id number]) Physical Therapy Assessment Goals Four Impairment ADLs Short Term Goal (STG) Ollie will read for 60 minutes without needing to use props and without neck pain. STG Duration 4 weeks Package Designer Goal (LTG) Ollie will cook a meal for 30 minutes without neck pain. LTG Duration 8 weeks Three Impairment Transfers Short Term Goal (STG) Ollie will perform a floor transfer with SBA with environmental support so that she can get on the floor to perform her HEP and yoga. STG Duration MET Half-Way Goal (LTG) Ollie will improve her deep neck flexor strength so that she can lift her head from supine for 5 seconds to allow better rolling from supine to sit without an increase in pain. LTG Duration MET Two Impairment pain Short Term Goal (STG) Ollie will read for 30 minutes without an increase in baseline pain. 03/12/22: She reports is better posture and holding knitting and reading her book tires and less pain, gaining strength but recently heavy history book is heavier so little more pain and needs rest breaks. 03/27/22 Goal Met: Is using a pillow to prop up her book so her arms are not as strained when she holds her books. Reports reading her books for more than two hours with no pain. STG Duration MET Package Designer Goal (LTG) Ollie will sit with good posture using props as needed for assistance for one hour without a headache. 03/27/22: Props her books up with pillows to reduce strain in her arms and for more than two with no pain. LTG Duration MET One Impairment ROM Short Term Goal (STG) Ollie will improve her active cervical rotation to bilaterally 70 degrees. 04/15: 55 bilaterally STG Duration 4 weeks Half-Way Goal (LTG) Ollie will improve her cervical extension to at least 40 degrees. 03/27/22: Cervical Ext - 45 LTG Duration MET Assessment Summary Assessment Pt tolerated ther ex well, but then needed to use the restroom and elected to leave early due to diarrhea. Physical Therapy Plan Frequency and Duration Frequency of Treatment 2x/Week Duration of treatment (weeks) 6 Plan of Care Start Date 04/15/22 Plan of Care End Date 05/27/22 Therapeutic Interventions Therapeutic Interventions Home Exercise Program,Joint Mobilizations,Manual Therapy, Neuromuscular Re-education, Self-Care/Home Management, Therapeutic Activities, Therapeutic Exercises Modalities Cold Pack/Ice Massage,Electric Stimulation,Hot Packs, Traction- Mechanical Next Visit Focus/Plan Next Note Type Treatment Note Next Visit Plan Progress ROM, cervical strengthening, assess carryover of rows, continue scap strenghtening.
--- NOTE | 2022-05-23 16:00 | PT.OTN ---
Current Diagnoses Cervicalgia (05/23/22) Headache, unspecified (05/23/22) Physical Therapy Treatment Note PT-OP-A Visit Information Start: 02/24/22 15:55 Freq: Status: Active Protocol: Document 05/23/22 13:00 AMB (Rec: 05/23/22 13:22 AMB [id number]) Out-Patient Physical Therapy Visit Information Visit Information Visit Type Treatment Note Visit Start Time 13:00 Visit Stop Time 13:45 Total Visit Minutes 45 Visit Number 18 PT-OP-B Current Condition Start: 02/24/22 15:55 Freq: Status: Active Protocol: Document 02/25/22 11:19 AMB (Rec: 02/25/22 11:34 AMB [id number]) Current Condition History of Current Condition Onset Date 1-1.5 years Current Complaints neck pain and headaches History of Current Condition Headaches towards the end of the day. History of multiple accidents that cause shoulder/ elbow dysfunction, reduced winding inspector strength. Thinks she clenches her jaw a lot with dentures. Knitting/ reading and looking down to do so exacerbates her sx. Smoke marijuana to fall asleep. Anytime I've been sitting knitting and reading the headache starts, denies eye strain. Bilateral temples. Bilateral upper traps is where neck pain is. Lying on the floor helps the neck, difficult to get up from the floor. Goes on 1 mile-2 mile walk/ day. Holding the book up higher does seem to help the neck/headache. Used to do yoga before the pandemic, but can't really afford classes. Treatment Goals Patient/Caregiver Goals Reduce neck pain/headache Prior Functional Status Baseline Function- ADL's Modified Independent Baseline Function- Mobility Modified Independent Current Functional Impairments (Reported) Functional Limitations- ADL's Difficulty enjoying hobbies: reading and knitting Personal Factors Other Personal Factors That May Effect Bilateral shoulder dysfunction Therapy/Recovery with poor flexion/abduction over shoulder height, poor winding inspector strength. Peripheral neuropathy. PT-OP-C Subjective Start: 02/24/22 15:55 Freq: Status: Active Protocol: Document 05/23/22 13:00 AMB (Rec: 05/23/22 13:22 AMB [id number]) OP-PT Subjective Patient Comments Patient Comments Pt feels like she is doing quite well. Knows cervical rotation is so much better. PT-OP-J Posture/Palpation/Skin Start: 02/24/22 15:55 Freq: Status: Active Protocol: Document 02/25/22 11:19 AMB (Rec: 02/27/22 12:44 AMB [id number]) Posture Evaluation Comments Posture Comments Flat cervical spine, hypertonicity of upper trapezius Palpation Assessment Location One Palpation Location Neck Palpation Findings Soft Tissue Tightness,Spasm, Muscle Guarding,Tenderness Palpation Details Tightness at upper traps, suboccipitals PT-OP-K Range of Motion Start: 02/24/22 15:55 Freq: Status: Active Protocol: Document 05/23/22 13:08 AMB (Rec: 05/23/22 13:11 AMB [id number]) Cervical Spine Range of Motion Cervical Spine Active Degrees Flexion 55 Extension 35 Rotation Left 55 Rotation Right 55 PT-OP-Q Treatments Start: 02/24/22 15:55 Freq: Status: Active Protocol: Document 05/23/22 13:00 AMB (Rec: 06/02/22 08:18 AMB [id number]) Therapeutic Exercises Supine Exercises Cervical rotation Side bilateral Equipment Used Mat table Reps/Minutes 2x10 Comments Cues for chin tuck Sidelying Exercises open book Side right Equipment Used LUE long arm axis difficult, Short arm with elbow bent easier Reps/Minutes x5 reps long arm, x5 reps short arm Comments Tactile cues for scapular glide. Good fespone to short arm. Sitting Exercises upper trap stretch Side bilateral Reps/Minutes 30x1 Comments Some slight discomfort but has been doing at home. Manual Therapy Treatment Soft Tissue Mobilization UT, Levator Body Location UT, Levator Mobilization Type Oscillations,Strumming Intensity/Depth Moderate Body Position Supine Comments Pt reported tenderness in L>R, felt relief with manual therapy. suboccipitals Body Location MFR Comments continue parapsinals PT-OP-T Assessment and Plan Start: 02/24/22 15:55 Freq: Status: Active Protocol: Document 05/23/22 13:00 AMB (Rec: 05/23/22 13:22 AMB [id number]) Physical Therapy Assessment Goals Four Impairment ADLs Short Term Goal (STG) Ollie will read for 60 minutes without needing to use props and without neck pain. STG Duration MET Web Development Manager Goal (LTG) Ollie will cook a meal for 30 minutes without neck pain. LTG Duration MET Three Impairment Transfers Short Term Goal (STG) Ollie will perform a floor transfer with SBA with environmental support so that she can get on the floor to perform her HEP and yoga. STG Duration MET Web Development Manager Goal (LTG) Ollie will improve her deep neck flexor strength so that she can lift her head from supine for 5 seconds to allow better rolling from supine to sit without an increase in pain. LTG Duration MET Two Impairment pain Short Term Goal (STG) Ollie will read for 30 minutes without an increase in baseline pain. 03/12/22: She reports is better posture and holding knitting and reading her book tires and less pain, gaining strength but recently heavy history book is heavier so little more pain and needs rest breaks. 03/27/22 Goal Met: Is using a pillow to prop up her book so her arms are not as strained when she holds her books. Reports reading her books for more than two hours with no pain. STG Duration MET Alf Goal (LTG) Ollie will sit with good posture using props as needed for assistance for one hour without a headache. 03/27/22: Props her books up with pillows to reduce strain in her arms and for more than two with no pain. LTG Duration MET One Impairment ROM Short Term Goal (STG) Ollie will improve her active cervical rotation to bilaterally 70 degrees. 04/15: 55 bilaterally STG Duration PROGRESS MADE Web Development Manager Goal (LTG) Ollie will improve her cervical extension to at least 40 degrees. 03/27/22: Cervical Ext - 45 LTG Duration MET Assessment Summary Assessment Ollie is doing well with her exercises, her neck has improved ROM very well. Pain is also improved, if she reads for a very long time she can feel some pain, but has the tools to manage it at this point. Physical Therapy Plan Frequency and Duration Frequency of Treatment 2x/Week Duration of treatment (weeks) 6 Plan of Care Start Date 04/15/22 Plan of Care End Date 05/27/22 Therapeutic Interventions Therapeutic Interventions Home Exercise Program,Joint Mobilizations,Manual Therapy, Neuromuscular Re-education, Self-Care/Home Management, Therapeutic Activities, Therapeutic Exercises Modalities Cold Pack/Ice Massage,Electric Stimulation,Hot Packs, Traction- Mechanical Discharge Physical Therapy Discharge Reasons Goals Met
== END 2022-06-03 09:10 | disposition home or self-care (01) ==
LOC: PHYS 13:00
PROVIDERS: Family Provider Nurse Practitioner; PCP Nurse Practitioner; Referring Provider Nurse Practitioner; Visit Provider Nurse Practitioner
DX: M54.2 Cervicalgia (principal); R51.9 Headache, unspecified
CPT/HCPCS: 97110; 97140; 97161; 97530

== ENCOUNTER 2022-07-08 13:00 | Outpatient (RCR) | payer MEDICARE, MEDICAID, SELFPAY ==
[2021-07-25 21:43] VITALS: BMI 20.1
--- NOTE | 2022-05-27 16:00 | PT.OPPOC ---
Physical, Occupational & Speech Therapy At 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) Visit Care Team Role Provider Type KELVIN Brownlee Family Provider Advanced Assistant Secretary Primary Care Provider Specialty: Family Practice Address: [address] [place] [address], [id number] Email: [email or web address] Alaina Abdi MD Attending Provider Physician Referring Provider Specialty: Gynecology CRIME ANALYST Obstetrics Address: [address] [place] [address], [phone] Email: [email or web address] Plan Of Care PT-OP-T Assessment and Plan Start: 05/21/22 15:44 Freq: Status: Active Protocol: Document 05/27/22 13:45 AMB (Rec: 05/28/22 07:58 AMB [id number]) Physical Therapy Assessment Rehab Potential Rehabilitation Potential Good Evaluation Complexity Number of Personal Factors/Comorbidities 1-2 Number of Body Systems Impaired 1-2 Clinical Presentation at Evaluation Stable Impairments Impairments Functional Activities,Strength Goals Two Impairment Continence Short Term Goal (STG) Ollie will go on a walk without fecal incontinence. STG Duration 4 weeks One Impairment Pelvic floor strength Short Term Goal (STG) Ollie will be independent and consistent with a HEP to strengthen her pelvic floor muscles. STG Duration 4 weeks Skilled Nursing Goal (LTG) Ollie will contract her pelvic floor while moving from sit to stand. LTG Duration 8 weeks Assessment Summary Assessment Ollie attends PT with fecal incontinence. Declined internal/sEMG assessment due to feeling that the rectum would not tolerate the procedure. She does take miralax and usually has the incontinence due to the second bowel movement of the day. Sometimes she doesn't feel it, sometimes she mistakes gas for stool, usually if she is out of the house and walking the incontinence is worse. She has never done pelvic floor exercises despite using a pessary for 22 years and having a history of urinary incontinence. Ollie was encouraged to take the miralax earlier in the day, instructed in pelvic floor exercises and will continue to be seen to further evaluate pelvic floor and appropriate strengthening exercises. Physical Therapy Plan Frequency and Duration Frequency of Treatment 1x/Week Duration of treatment (weeks) 8 Plan of Care Start Date 05/27/22 Plan of Care End Date 07/22/22 Therapeutic Interventions Therapeutic Interventions Home Exercise Program,Manual Therapy,Neuromuscular Re- education,Patient/Caregiver Education,Self-Care/Home Management,Therapeutic Activities,Therapeutic Exercises Modalities Biofeedback,Electric Stimulation Next Visit Focus/Plan Next Note Type Treatment Note Next Visit Plan Progress strengthening, start in seated Plan of Care Dates Plan of Care Start Date 05/27/22 Plan of Care End Date 07/22/22 Electronically Signed by: Thelma Crawford, PT 05/28/22 0800 If you are in agreement with this Plan of Care, please return a signed and dated copy. I have reviewed this Plan of Care and certify that the skilled therapy services above are required to meet the patient?s needs. Physician Signature Date Printed Name and Credentials Clinical Instructor Signature Printed Name and Credentials
--- NOTE | 2022-05-27 16:00 | PT.OIE ---
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) Past Medical History (Last Updated 01/16/22 @ 07:37 by KELVIN Brownlee) Advanced age Chin laceration Chronic constipation Contusion of left leg Hyperlipidemia Hypertension Hypertensive emergency Hyponatremia Hypothyroidism Mobitz type II incomplete atrioventricular block Noncompliance with medication regimen Pelvic floor relaxation (11/23/13) Pelvic floor relaxation Peripheral neuropathy Rectal bleeding (2018) Shoulder pain Vaginal atrophy (11/23/13) Vaginal atrophy Vaginal pessary in situ (11/23/13) Past Surgical History (Last Reviewed 01/15/22 @ 14:35 by KELVIN Brownlee) History of colonoscopy (05/04/18) History of colonoscopy with polypectomy (02/22/09) History of surgery on arm (06/08/13) History of third molar tooth extraction (1971) History of tonsillectomy (1966) Visit Care Team Role Provider Type KELVIN Brownlee Family Provider Advanced Swage Toolsetter Primary Care Provider Specialty: Family Practice Address: [address] [place] [address] Email: [email or web address] Alaina Abdi MD Attending Provider Physician Referring Provider Specialty: Gynecology [employer] PROGRAMS DIRECTOR Obstetrics Address: [address] [place] [address], [facility] Email: [email or web address] Physical Therapy Initial Evaluation PT-OP-A Visit Information Start: 05/21/22 15:44 Freq: Status: Active Protocol: Document 05/27/22 13:50 AMB (Rec: 05/27/22 14:30 AMB [id number]) Out-Patient Physical Therapy Visit Information Visit Information Visit Type Treatment Note Visit Start Time 13:45 Visit Stop Time 14:30 Total Visit Minutes 45 Visit Number 1 PT-OP-B Current Condition Start: 05/21/22 15:44 Freq: Status: Active Protocol: Document 05/27/22 13:50 AMB (Rec: 05/27/22 14:30 AMB [id number]) Current Condition History of Current Condition Onset Date 3-4 months Current Complaints fecal incontinence History of Current Condition When at home doesn't have an issue. Does take polyethelyne glycol every day for issues with constipation. Mostly 2-3 on the bristol stool scale. Can be type 4 if has a salad. Takes miralax at 9am for the last 4 years after an issue with the colonoscopy, has two bowel movements a day, one after breakfast, one in the afternoon. Walking usually around 1-2 pm, and can have a bowel leak during the walk when a bathroom isn't available. Has a difficult time sensing the difference between gas and feces. Sometimes can't feel that she' s had a bowel leak. Does leak stool, not just mucus. Long standing history of urinary incontinence, does use pessary and estring. Prior Functional Status Baseline Function- ADL's Independent Baseline Function- Mobility Independent Personal Factors Other Personal Factors That May Effect Long standing urinary Therapy/Recovery incontinence, takes miralax PT-OP-C Subjective Start: 05/21/22 15:44 Freq: Status: Active Protocol: Document 05/27/22 13:45 AMB (Rec: 05/27/22 16:14 AMB [id number]) Patient Questionnaires Pelvic Pain and Urgency/Frequency Patient Symptom Scale Pelvic Pain Score 5 PT-OP-I Pelvic Floor Start: 05/21/22 15:44 Freq: Status: Active Protocol: Document 05/27/22 13:45 AMB (Rec: 05/27/22 16:14 AMB [id number]) Pelvic Floor Assessment Urine Urinary Symptoms Prolapse Leakage Size Small Leakage Cause Cough,Exercise,Lifting,Sneeze, Urge Bowel Bowel Symptoms Fecal Leakage,Uncontrolled Flatulence Bowel Movement Frequency 2x/day [place] Stool Chart Comments 2-4 Comments Pelvic Floor Comments Pt declined sEMG as she states the rectal opening would not tolerate the sensor. Verbally described pelvic floor contraction and used visual model. Pt felt she could hold for about 8 seconds, did tend to hold breath. PT-OP-Q Treatments Start: 05/21/22 15:44 Freq: Status: Active Protocol: Document 05/27/22 13:45 AMB (Rec: 05/27/22 16:14 AMB [id number]) Therapeutic Exercises Sitting Exercises quick flicks and rena gholds Reps/Minutes 10 PT-OP-T Assessment and Plan Start: 05/21/22 15:44 Freq: Status: Active Protocol: Document 05/27/22 13:45 AMB (Rec: 05/28/22 07:58 AMB [id number]) Physical Therapy Assessment Rehab Potential Rehabilitation Potential Good Evaluation Complexity Number of Personal Factors/Comorbidities 1-2 Number of Body Systems Impaired 1-2 Clinical Presentation at Evaluation Stable Impairments Impairments Functional Activities,Strength Goals Two Impairment Continence Short Term Goal (STG) Ollie will go on a walk without fecal incontinence. STG Duration 4 weeks One Impairment Pelvic floor strength Short Term Goal (STG) Ollie will be independent and consistent with a HEP to strengthen her pelvic floor muscles. STG Duration 4 weeks Half-Way Goal (LTG) Ollie will contract her pelvic floor while moving from sit to stand. LTG Duration 8 weeks Assessment Summary Assessment Ollie attends PT with fecal incontinence. Declined internal/sEMG assessment due to feeling that the rectum would not tolerate the procedure. She does take miralax and usually has the incontinence due to the second bowel movement of the day. Sometimes she doesn't feel it, sometimes she mistakes gas for stool, usually if she is out of the house and walking the incontinence is worse. She has never done pelvic floor exercises despite using a pessary for 22 years and having a history of urinary incontinence. Ollie was encouraged to take the miralax earlier in the day, instructed in pelvic floor exercises and will continue to be seen to further evaluate pelvic floor and appropriate strengthening exercises. Physical Therapy Plan Frequency and Duration Frequency of Treatment 1x/Week Duration of treatment (weeks) 8 Plan of Care Start Date 05/27/22 Plan of Care End Date 07/22/22 Therapeutic Interventions Therapeutic Interventions Home Exercise Program,Manual Therapy,Neuromuscular Re- education,Patient/Caregiver Education,Self-Care/Home Management,Therapeutic Activities,Therapeutic Exercises Modalities Biofeedback,Electric Stimulation Next Visit Focus/Plan Next Note Type Treatment Note Next Visit Plan Progress strengthening, start in seated
--- NOTE | 2022-06-03 16:14 | PT.OTN ---
Current Diagnoses Full incontinence of feces (06/03/22) Physical Therapy Treatment Note PT-OP-A Visit Information Start: 05/21/22 15:44 Freq: Status: Active Protocol: Document 06/03/22 13:02 AMB (Rec: 06/03/22 13:41 AMB [id number]) Out-Patient Physical Therapy Visit Information Visit Information Visit Type Treatment Note Visit Start Time 13:00 Visit Stop Time 13:45 Total Visit Minutes 45 Visit Number 2 PT-OP-B Current Condition Start: 05/21/22 15:44 Freq: Status: Active Protocol: Document 05/27/22 13:50 AMB (Rec: 05/27/22 14:30 AMB [id number]) Current Condition History of Current Condition Onset Date 3-4 months Current Complaints fecal incontinence History of Current Condition When at home doesn't have an issue. Does take polyethelyne glycol every day for issues with constipation. Mostly 2-3 on the bristol stool scale. Can be type 4 if has a salad. Takes miralax at 9am for the last 4 years after an issue with the colonoscopy, has two bowel movements a day, one after breakfast, one in the afternoon. Walking usually around 1-2 pm, and can have a bowel leak during the walk when a bathroom isn't available. Has a difficult time sensing the difference between gas and feces. Sometimes can't feel that she' s had a bowel leak. Does leak stool, not just mucus. Long standing history of urinary incontinence, does use pessary and estring. Prior Functional Status Baseline Function- ADL's Independent Baseline Function- Mobility Independent Personal Factors Other Personal Factors That May Effect Long standing urinary Therapy/Recovery incontinence, takes miralax PT-OP-C Subjective Start: 05/21/22 15:44 Freq: Status: Active Protocol: Document 06/03/22 13:02 AMB (Rec: 06/03/22 13:41 AMB [id number]) OP-PT Subjective Patient Comments Patient Comments Usually 3-4x/week; this last week small leaks 2x in the afternoon. Does have to take miralax because of scar tissue at the anus. PT-OP-I Pelvic Floor Start: 05/21/22 15:44 Freq: Status: Active Protocol: Document 05/27/22 13:45 AMB (Rec: 05/27/22 16:14 AMB [id number]) Pelvic Floor Assessment Urine Urinary Symptoms Prolapse Leakage Size Small Leakage Cause Cough,Exercise,Lifting,Sneeze, Urge Bowel Bowel Symptoms Fecal Leakage,Uncontrolled Flatulence Bowel Movement Frequency 2x/day [place] Stool Chart Comments 2-4 Comments Pelvic Floor Comments Pt declined sEMG as she states the rectal opening would not tolerate the sensor. Verbally described pelvic floor contraction and used visual model. Pt felt she could hold for about 8 seconds, did tend to hold breath. PT-OP-Q Treatments Start: 05/21/22 15:44 Freq: Status: Active Protocol: Document 06/03/22 13:02 AMB (Rec: 06/03/22 13:41 AMB [id number]) Therapeutic Exercises Sitting Exercises rolling in Sitting Exercise Name pelvic floor Reps/Minutes 10 quick flicks and rena gholds Reps/Minutes 10 Standing Exercises mini squats Reps/Minutes 10 Comments pelvic floor contraction 1 Standing Exercise Name sit to stand Reps/Minutes 10 Comments with PT-OP-T Assessment and Plan Start: 05/21/22 15:44 Freq: Status: Active Protocol: Document 06/03/22 13:02 AMB (Rec: 06/03/22 13:41 AMB [id number]) Physical Therapy Assessment Goals Two Impairment Continence Short Term Goal (STG) Ollie will go on a walk without fecal incontinence. STG Duration 4 weeks One Impairment Pelvic floor strength Short Term Goal (STG) Ollie will be independent and consistent with a HEP to strengthen her pelvic floor muscles. STG Duration 4 weeks Senior Care Goal (LTG) Ollie will contract her pelvic floor while moving from sit to stand. LTG Duration 8 weeks Assessment Summary Assessment Ollie is doing well with her exercises. She is noticing fewer leaks, but continues to have a few in the afternoon. Difficulty with noticing the difference between gas and stool. Progressed exercises to standing today. Physical Therapy Plan Frequency and Duration Frequency of Treatment 1x/Week Duration of treatment (weeks) 8 Plan of Care Start Date 05/27/22 Plan of Care End Date 07/22/22 Therapeutic Interventions Therapeutic Interventions Home Exercise Program,Manual Therapy,Neuromuscular Re- education,Patient/Caregiver Education,Self-Care/Home Management,Therapeutic Activities,Therapeutic Exercises Modalities Biofeedback,Electric Stimulation Next Visit Focus/Plan Next Note Type Treatment Note Next Visit Plan Progress strengthening, start in seated
--- NOTE | 2022-06-10 15:00 | PT.OTN ---
Current Diagnoses Full incontinence of feces (06/10/22) Physical Therapy Treatment Note PT-OP-A Visit Information Start: 05/21/22 15:44 Freq: Status: Active Protocol: Document 06/10/22 10:32 AMB (Rec: 06/10/22 11:13 AMB [id number]) Out-Patient Physical Therapy Visit Information Visit Information Visit Type Treatment Note Visit Start Time 10:30 Visit Stop Time 11:15 Total Visit Minutes 45 Visit Number 3 PT-OP-B Current Condition Start: 05/21/22 15:44 Freq: Status: Active Protocol: Document 05/27/22 13:50 AMB (Rec: 05/27/22 14:30 AMB [id number]) Current Condition History of Current Condition Onset Date 3-4 months Current Complaints fecal incontinence History of Current Condition When at home doesn't have an issue. Does take polyethelyne glycol every day for issues with constipation. Mostly 2-3 on the bristol stool scale. Can be type 4 if has a salad. Takes miralax at 9am for the last 4 years after an issue with the colonoscopy, has two bowel movements a day, one after breakfast, one in the afternoon. Walking usually around 1-2 pm, and can have a bowel leak during the walk when a bathroom isn't available. Has a difficult time sensing the difference between gas and feces. Sometimes can't feel that she' s had a bowel leak. Does leak stool, not just mucus. Long standing history of urinary incontinence, does use pessary and estring. Prior Functional Status Baseline Function- ADL's Independent Baseline Function- Mobility Independent Personal Factors Other Personal Factors That May Effect Long standing urinary Therapy/Recovery incontinence, takes miralax PT-OP-C Subjective Start: 05/21/22 15:44 Freq: Status: Active Protocol: Document 06/10/22 10:32 AMB (Rec: 06/10/22 11:13 AMB [id number]) OP-PT Subjective Patient Comments Patient Comments 2 accident this week. Did stop one from happening on the way home PT-OP-I Pelvic Floor Start: 05/21/22 15:44 Freq: Status: Active Protocol: Document 05/27/22 13:45 AMB (Rec: 05/27/22 16:14 AMB [id number]) Pelvic Floor Assessment Urine Urinary Symptoms Prolapse Leakage Size Small Leakage Cause Cough,Exercise,Lifting,Sneeze, Urge Bowel Bowel Symptoms Fecal Leakage,Uncontrolled Flatulence Bowel Movement Frequency 2x/day [place] Stool Chart Comments 2-4 Comments Pelvic Floor Comments Pt declined sEMG as she states the rectal opening would not tolerate the sensor. Verbally described pelvic floor contraction and used visual model. Pt felt she could hold for about 8 seconds, did tend to hold breath. PT-OP-Q Treatments Start: 05/21/22 15:44 Freq: Status: Active Protocol: Document 06/10/22 10:30 AMB (Rec: 06/11/22 14:59 AMB [id number]) Therapeutic Exercises Supine Exercises long holds Reps/Minutes 10 Comments with cues for breath Sitting Exercises rolling in Sitting Exercise Name pelvic floor Reps/Minutes 10 quick flicks and rena gholds Reps/Minutes 10 Standing Exercises mini squats Reps/Minutes 10 Comments pelvic floor contraction 1 Standing Exercise Name sit to stand Reps/Minutes 10 Comments very challenging PT-OP-T Assessment and Plan Start: 05/21/22 15:44 Freq: Status: Active Protocol: Document 06/10/22 10:32 AMB (Rec: 06/10/22 11:13 AMB [id number]) Physical Therapy Assessment Goals Two Impairment Continence Short Term Goal (STG) Ollie will go on a walk without fecal incontinence. STG Duration 4 weeks One Impairment Pelvic floor strength Short Term Goal (STG) Ollie will be independent and consistent with a HEP to strengthen her pelvic floor muscles. STG Duration 4 weeks Detention Goal (LTG) Ollie will contract her pelvic floor while moving from sit to stand. LTG Duration 8 weeks Assessment Summary Assessment Sitting up to 4 second hold any longer than that is very challenging. Pt to discuss with OB if she can slightly decrease miralax as she does have type 6 stools in the afternoon and that is what is very difficult to control. Physical Therapy Plan Frequency and Duration Frequency of Treatment 1x/Week Duration of treatment (weeks) 8 Plan of Care Start Date 05/27/22 Plan of Care End Date 07/22/22 Therapeutic Interventions Therapeutic Interventions Home Exercise Program,Manual Therapy,Neuromuscular Re- education,Patient/Caregiver Education,Self-Care/Home Management,Therapeutic Activities,Therapeutic Exercises Modalities Biofeedback,Electric Stimulation Next Visit Focus/Plan Next Note Type Treatment Note Next Visit Plan Progress strengthening, start in seated
--- NOTE | 2022-06-24 20:57 | PT.OTN ---
Current Diagnoses Full incontinence of feces (06/24/22) Physical Therapy Treatment Note PT-OP-A Visit Information Start: 05/21/22 15:44 Freq: Status: Active Protocol: Document 06/24/22 13:05 AMB (Rec: 06/24/22 13:55 AMB [id number]) Out-Patient Physical Therapy Visit Information Visit Information Visit Type Treatment Note Visit Start Time 13:00 Visit Stop Time 13:45 Total Visit Minutes 45 Visit Number 4 PT-OP-B Current Condition Start: 05/21/22 15:44 Freq: Status: Active Protocol: Document 05/27/22 13:50 AMB (Rec: 05/27/22 14:30 AMB [id number]) Current Condition History of Current Condition Onset Date 3-4 months Current Complaints fecal incontinence History of Current Condition When at home doesn't have an issue. Does take polyethelyne glycol every day for issues with constipation. Mostly 2-3 on the bristol stool scale. Can be type 4 if has a salad. Takes miralax at 9am for the last 4 years after an issue with the colonoscopy, has two bowel movements a day, one after breakfast, one in the afternoon. Walking usually around 1-2 pm, and can have a bowel leak during the walk when a bathroom isn't available. Has a difficult time sensing the difference between gas and feces. Sometimes can't feel that she' s had a bowel leak. Does leak stool, not just mucus. Long standing history of urinary incontinence, does use pessary and estring. Prior Functional Status Baseline Function- ADL's Independent Baseline Function- Mobility Independent Personal Factors Other Personal Factors That May Effect Long standing urinary Therapy/Recovery incontinence, takes miralax PT-OP-C Subjective Start: 05/21/22 15:44 Freq: Status: Active Protocol: Document 06/24/22 13:05 AMB (Rec: 06/24/22 13:55 AMB [id number]) OP-PT Subjective Patient Comments Patient Comments Two accidents in the last 2 weeks. PT-OP-I Pelvic Floor Start: 05/21/22 15:44 Freq: Status: Active Protocol: Document 05/27/22 13:45 AMB (Rec: 05/27/22 16:14 AMB [id number]) Pelvic Floor Assessment Urine Urinary Symptoms Prolapse Leakage Size Small Leakage Cause Cough,Exercise,Lifting,Sneeze, Urge Bowel Bowel Symptoms Fecal Leakage,Uncontrolled Flatulence Bowel Movement Frequency 2x/day [place] Stool Chart Comments 2-4 Comments Pelvic Floor Comments Pt declined sEMG as she states the rectal opening would not tolerate the sensor. Verbally described pelvic floor contraction and used visual model. Pt felt she could hold for about 8 seconds, did tend to hold breath. PT-OP-Q Treatments Start: 05/21/22 15:44 Freq: Status: Active Protocol: Document 06/24/22 13:05 AMB (Rec: 06/24/22 13:55 AMB [id number]) Therapeutic Exercises Supine Exercises long holds Reps/Minutes 10 Comments with cues for breath Sitting Exercises rolling in Sitting Exercise Name pelvic floor Reps/Minutes 10 quick flicks and rena gholds Reps/Minutes 10 Standing Exercises mini squats Reps/Minutes 10 Comments pelvic floor contraction 1 Standing Exercise Name sit to stand Reps/Minutes 10 Comments better PT-OP-T Assessment and Plan Start: 05/21/22 15:44 Freq: Status: Active Protocol: Document 06/24/22 13:05 AMB (Rec: 06/24/22 13:55 AMB [id number]) Physical Therapy Assessment Goals Two Impairment Continence Short Term Goal (STG) Ollie will go on a walk without fecal incontinence. STG Duration 4 weeks One Impairment Pelvic floor strength Short Term Goal (STG) Ollie will be independent and consistent with a HEP to strengthen her pelvic floor muscles. STG Duration 4 weeks Pigment Processor Goal (LTG) Ollie will contract her pelvic floor while moving from sit to stand. LTG Duration 8 weeks Assessment Summary Assessment 7 second hold in seated today. Overall Ollie is feeling better. She feels like she is having less accidents and can hold them when they do happen . She is able to contract her pelvic floor for a longer period of time without fatigue . She was encouraged to discuss marginally less miralax so that her afternoon BM is not quite as watery, as this is consistently what is difficult to hold. Physical Therapy Plan Frequency and Duration Frequency of Treatment 1x/Week Duration of treatment (weeks) 8 Plan of Care Start Date 05/27/22 Plan of Care End Date 07/22/22 Therapeutic Interventions Therapeutic Interventions Home Exercise Program,Manual Therapy,Neuromuscular Re- education,Patient/Caregiver Education,Self-Care/Home Management,Therapeutic Activities,Therapeutic Exercises Modalities Biofeedback,Electric Stimulation Next Visit Focus/Plan Next Note Type Treatment Note Next Visit Plan Progress strengthening, start in seated
--- NOTE | 2022-07-08 13:43 | PT.OTN ---
Current Diagnoses Full incontinence of feces (07/08/22) Physical Therapy Treatment Note PT-OP-A Visit Information Start: 05/21/22 15:44 Freq: Status: Active Protocol: Document 07/08/22 13:00 AMB (Rec: 07/08/22 13:27 AMB [id number]) Out-Patient Physical Therapy Visit Information Visit Information Visit Type Treatment Note Visit Start Time 13:00 Visit Stop Time 13:45 Total Visit Minutes 45 Visit Number 5 PT-OP-B Current Condition Start: 05/21/22 15:44 Freq: Status: Active Protocol: Document 05/27/22 13:50 AMB (Rec: 05/27/22 14:30 AMB [id number]) Current Condition History of Current Condition Onset Date 3-4 months Current Complaints fecal incontinence History of Current Condition When at home doesn't have an issue. Does take polyethelyne glycol every day for issues with constipation. Mostly 2-3 on the bristol stool scale. Can be type 4 if has a salad. Takes miralax at 9am for the last 4 years after an issue with the colonoscopy, has two bowel movements a day, one after breakfast, one in the afternoon. Walking usually around 1-2 pm, and can have a bowel leak during the walk when a bathroom isn't available. Has a difficult time sensing the difference between gas and feces. Sometimes can't feel that she' s had a bowel leak. Does leak stool, not just mucus. Long standing history of urinary incontinence, does use pessary and estring. Prior Functional Status Baseline Function- ADL's Independent Baseline Function- Mobility Independent Personal Factors Other Personal Factors That May Effect Long standing urinary Therapy/Recovery incontinence, takes miralax PT-OP-C Subjective Start: 05/21/22 15:44 Freq: Status: Active Protocol: Document 07/08/22 13:00 AMB (Rec: 07/08/22 13:27 AMB [id number]) OP-PT Subjective Patient Comments Patient Comments Tried to reduce miralax but got type 3 constipation and had to go back. No accidents of solids, did really have some leaking. PT-OP-I Pelvic Floor Start: 05/21/22 15:44 Freq: Status: Active Protocol: Document 05/27/22 13:45 AMB (Rec: 05/27/22 16:14 AMB [id number]) Pelvic Floor Assessment Urine Urinary Symptoms Prolapse Leakage Size Small Leakage Cause Cough,Exercise,Lifting,Sneeze, Urge Bowel Bowel Symptoms Fecal Leakage,Uncontrolled Flatulence Bowel Movement Frequency 2x/day [place] Stool Chart Comments 2-4 Comments Pelvic Floor Comments Pt declined sEMG as she states the rectal opening would not tolerate the sensor. Verbally described pelvic floor contraction and used visual model. Pt felt she could hold for about 8 seconds, did tend to hold breath. PT-OP-Q Treatments Start: 05/21/22 15:44 Freq: Status: Active Protocol: Document 07/08/22 13:00 AMB (Rec: 07/08/22 13:27 AMB [id number]) Therapeutic Exercises Supine Exercises long holds Reps/Minutes 10 Comments with cues for breath Sitting Exercises rolling in Sitting Exercise Name pelvic floor Reps/Minutes 10 quick flicks and rena gholds Reps/Minutes 10 Standing Exercises mini squats Reps/Minutes 10 Comments pelvic floor contraction 1 Standing Exercise Name sit to stand Reps/Minutes 10 Comments better PT-OP-T Assessment and Plan Start: 05/21/22 15:44 Freq: Status: Active Protocol: Document 07/08/22 13:00 AMB (Rec: 07/08/22 13:27 AMB [id number]) Physical Therapy Assessment Goals Two Impairment Continence Short Term Goal (STG) Ollie will go on a walk without fecal incontinence. STG Duration MET One Impairment Pelvic floor strength Short Term Goal (STG) Ollie will be independent and consistent with a HEP to strengthen her pelvic floor muscles. STG Duration MET Custodial Goal (LTG) Ollie will contract her pelvic floor while moving from sit to stand. LTG Duration 8 weeks Assessment Summary Assessment 10 second hold today in seated . Pt is very happy with her progress so far, can go on her walks without worrying about fecal incontinence at this point. Physical Therapy Plan Frequency and Duration Frequency of Treatment 1x/Week Duration of treatment (weeks) 8 Plan of Care Start Date 05/27/22 Plan of Care End Date 07/22/22 Therapeutic Interventions Therapeutic Interventions Home Exercise Program,Manual Therapy,Neuromuscular Re- education,Patient/Caregiver Education,Self-Care/Home Management,Therapeutic Activities,Therapeutic Exercises Modalities Biofeedback,Electric Stimulation Next Visit Focus/Plan Next Note Type Treatment Note Next Visit Plan Progress strengthening, start in seated
--- NOTE | 2022-07-08 13:47 | PT.OPDS ---
Current Diagnoses Full incontinence of feces (07/08/22) Visit Care Team Role Provider Type KELVIN Brownlee Family Provider Advanced Wire Rope Fabrication Supervisor Primary Care Provider Specialty: Family Practice Address: [address] [place] [address], [id number] Email: [email or web address] Alaina Abdi MD Attending Provider Physician Referring Provider Specialty: Gynecology RETURN CLERK Obstetrics Address: [address] [place] [address], [address] Email: [email or web address] Visit Number Visit Number 5 Discharge Summary PT-OP-B Current Condition Start: 05/21/22 15:44 Freq: Status: Active Protocol: Document 05/27/22 13:50 AMB (Rec: 05/27/22 14:30 AMB [id number]) Current Condition History of Current Condition Onset Date 3-4 months Current Complaints fecal incontinence History of Current Condition When at home doesn't have an issue. Does take polyethelyne glycol every day for issues with constipation. Mostly 2-3 on the bristol stool scale. Can be type 4 if has a salad. Takes miralax at 9am for the last 4 years after an issue with the colonoscopy, has two bowel movements a day, one after breakfast, one in the afternoon. Walking usually around 1-2 pm, and can have a bowel leak during the walk when a bathroom isn't available. Has a difficult time sensing the difference between gas and feces. Sometimes can't feel that she' s had a bowel leak. Does leak stool, not just mucus. Long standing history of urinary incontinence, does use pessary and estring. Prior Functional Status Baseline Function- ADL's Independent Baseline Function- Mobility Independent Personal Factors Other Personal Factors That May Effect Long standing urinary Therapy/Recovery incontinence, takes miralax PT-OP-C Subjective Start: 05/21/22 15:44 Freq: Status: Active Protocol: Document 07/08/22 13:00 AMB (Rec: 07/08/22 13:27 AMB [id number]) OP-PT Subjective Patient Comments Patient Comments Tried to reduce miralax but got type 3 constipation and had to go back. No accidents of solids, did really have some leaking. PT-OP-I Pelvic Floor Start: 05/21/22 15:44 Freq: Status: Active Protocol: Document 05/27/22 13:45 AMB (Rec: 05/27/22 16:14 AMB [id number]) Pelvic Floor Assessment Urine Urinary Symptoms Prolapse Leakage Size Small Leakage Cause Cough,Exercise,Lifting,Sneeze, Urge Bowel Bowel Symptoms Fecal Leakage,Uncontrolled Flatulence Bowel Movement Frequency 2x/day [place] Stool Chart Comments 2-4 Comments Pelvic Floor Comments Pt declined sEMG as she states the rectal opening would not tolerate the sensor. Verbally described pelvic floor contraction and used visual model. Pt felt she could hold for about 8 seconds, did tend to hold breath. PT-OP-T Assessment and Plan Start: 05/21/22 15:44 Freq: Status: Active Protocol: Document 07/08/22 13:00 AMB (Rec: 07/08/22 13:27 AMB [id number]) Physical Therapy Assessment Goals Two Impairment Continence Short Term Goal (STG) Ollie will go on a walk without fecal incontinence. STG Duration MET One Impairment Pelvic floor strength Short Term Goal (STG) Ollie will be independent and consistent with a HEP to strengthen her pelvic floor muscles. STG Duration MET Supervisor [employer] Goal (LTG) Ollie will contract her pelvic floor while moving from sit to stand. LTG Duration 8 weeks Assessment Summary Assessment 10 second hold today in seated . Pt is very happy with her progress so far, can go on her walks without worrying about fecal incontinence at this point. Physical Therapy Plan Frequency and Duration Frequency of Treatment 1x/Week Duration of treatment (weeks) 8 Plan of Care Start Date 05/27/22 Plan of Care End Date 07/22/22 Therapeutic Interventions Therapeutic Interventions Home Exercise Program,Manual Therapy,Neuromuscular Re- education,Patient/Caregiver Education,Self-Care/Home Management,Therapeutic Activities,Therapeutic Exercises Modalities Biofeedback,Electric Stimulation Next Visit Focus/Plan Next Note Type Treatment Note Next Visit Plan Progress strengthening, start in seated
== END 2022-07-09 14:27 | disposition home or self-care (01) ==
LOC: PHYS 13:00
PROVIDERS: Family Provider Nurse Practitioner; PCP Nurse Practitioner; Referring Provider Obstetrics & Gynecology; Visit Provider Obstetrics & Gynecology
DX: R15.9 Full incontinence of feces (principal)
CPT/HCPCS: 97110; 97161

== ENCOUNTER 2022-08-02 11:27 | Emergency (ER) | payer MEDICARE, MEDICAID, SELFPAY ==
[2021-07-25 21:43] VITALS: BMI 20.1
[2022-08-02] VITALS (8 sets, daily range): BP systolic 164–186; BP diastolic 74–86; PULSE 63–74; RESP 16–20; TEMP 36.8; O2SAT 99–100; BMI 24.0
--- NOTE | 2022-08-02 11:28 | DI.RAD.S_ITS ---
PROCEDURE: XR ANKLE LT MIN 3V INDICATIONS: twisted t-1, swelling, bruising TECHNIQUE: 3 views of the ankle were acquired. COMPARISON: None. FINDINGS: Bones: There is a subtle step-off at the distal fibular tip 1.2 cm proximal to the tip of the fibula suspicious for a nondisplaced fracture. Ankle mortise is normally aligned. No suspicious bony lesions. Degenerative changes of the ankle. Plantar and Achilles spurs are seen of the calcaneus. Soft tissues: Soft tissue swelling over the lateral malleolus. IMPRESSION: Probable nondisplaced fracture of the tip of the left distal fibula. Dictated by: Forrest Hall M.D. on 08/02/2022 at 11:23 Approved by: Forrset Hall M.D. on 08/02/2022 at 11:25
--- NOTE | 2022-08-02 12:05 | DI.RAD.S_ITS ---
PROCEDURE: XR TIBIA FIBULA LT 2V INDICATIONS: prox fibula tenderness TECHNIQUE: 2 views of the tibia and fibula were acquired. COMPARISON: None. FINDINGS: Bones: Nondisplaced fracture of the distal fibula. Degenerative changes of the knee and ankle. Soft tissues: Soft tissue swelling of the lateral malleolus. IMPRESSION: Nondisplaced fracture of the distal fibula with adjacent soft tissue swelling. Dictated by: Forrest Hall M.D. on 08/02/2022 at 11:28 Approved by: Forrest Hall M.D. on 08/02/2022 at 11:29
--- NOTE | 2022-08-02 12:07 | ED.LOWEXIN ---
HPI - Extremity Injury (Lower) General Chief Complaint: Extremity Injury, Lower Stated Complaint: twisted ankle Time Seen by Provider: 08/02/22 11:34 Source: patient and EMS Mode of arrival: EMS Limitations: no limitations History of Present Illness HPI Narrative: 86-year-old female who is here for evaluation of left ankle injury. States yesterday she stood up and twisted and went down hurting her left ankle. She did have swelling to the ankle. She has been walking on it. Has been doing icing and keeping it elevated. Last night she stood up and passed out because of the discomfort. She arrives in the emergency department today because of the pain in the swelling of the discoloration. Related Data Home Medications Medication Instructions Recorded Confirmed aspirin 81 mg tablet,delayed 81 mg PO 3XW 09/22/18 07/08/22 release Previous Rx's Medication Instructions Recorded polyethylene glycol 3350 17 17 gm PO QDAY ##527 06/28/18 gram/dose oral powder amlodipine 10 mg tablet 5 mg PO DAILY #45 tabs 01/15/22 losartan 50 mg tablet (Cozaar) 50 mg PO DAILY #90 tabs 01/15/22 lovastatin 20 mg tablet 20 mg PO BEDTIME #90 tabs 01/15/22 diclofenac sodium 1 % topical gel 4 g topical QID PRN neck pain #100 01/20/22 (Voltaren Arthritis Pain) grams estradiol 2 mg (7.5 mcg/24 hour) 1 vag ring vaginal [id number] #1 ea 06/17/22 vaginal ring (Estring) oxyquinoline 0.025 %-sodium lauryl 1 ea vaginal .weekly #113.4 grams 06/24/22 sulfate 0.01 % vaginal gel triamcinolone acetonide 0.1 % 1 applic topical BID #45 grams 07/08/22 topical cream levothyroxine 100 mcg tablet See Rx Instructions .Route 07/14/22 .COMPLEX #90 tabs Allergies Allergy/AdvReac Type Severity Reaction Status Date / Time Penicillins Allergy unkown due Verified 06/24/22 13:56 to childhood issues Review of Systems Constitutional Constitutional: Reports system reviewed and no additional complaints, except as documented Musculoskeletal Musculoskeletal: Reports system reviewed and no additional complaints, except as documented Integumentary/Breasts Skin/Breast: Reports system reviewed and no additional complaints, except as documented Neurologic Neurologic: Reports system reviewed and no additional complaints, except as documented Patient History Medical History Advanced age Chin laceration Chronic constipation Contusion of left leg Hyperlipidemia Hypertension Hypertensive emergency Hyponatremia Hypothyroidism Mobitz type II incomplete atrioventricular block Noncompliance with medication regimen Pelvic floor relaxation (11/23/13) Pelvic floor relaxation Peripheral neuropathy Rectal bleeding (2018) Shoulder pain Vaginal atrophy (11/23/13) Vaginal atrophy Vaginal pessary in situ (11/23/13) Surgical History History of colonoscopy (05/04/18) History of colonoscopy with polypectomy (02/22/09) History of surgery on arm (06/08/13) History of third molar tooth extraction (1971) History of tonsillectomy (1966) Family History Mother Gallstones Social History household members: none lives independently: Yes occupational status: previously employed Smoking Status: Former smoker alcohol intake: current Smoking Status: Former smoker alcohol intake frequency: holidays/special occasions only Substance Use Type: marijuana Exam Initial Vital Signs Initial Vital Signs: Vital Signs Temperature 98.2 F 08/02/22 11:31 Pulse Rate 63 08/02/22 11:31 Respiratory Rate 16 08/02/22 11:31 Blood Pressure 186/86 H 08/02/22 11:31 Pulse Oximetry 100 08/02/22 11:31 Oxygen Delivery Method Room Air 08/02/22 11:31 HENVA Head: normal to inspection and normocephalic Skin Other: Bruising to the dorsum and lateral aspect of the left ankle Neuro Sensory Exam: no sensory deficits noted Extrem Other: Discomfort with palpation of the lateral malleolus and also the proximal fibula Course Orders Ordered: ED Orders 08/02/22 11:28 XR ankle LT min 3V Stat 08/02/22 12:05 XR tibia fibula LT 2V Stat Vital Signs Vital signs: Vital Signs - 8 hr 08/02/22 11:31 Temperature 98.2 F Pulse Rate 63 Respiratory Rate 16 Blood Pressure 186/86 H Pulse Oximetry 100 Oxygen Delivery Method Room Air MDM - Extremity Injury (Lower) Imaging Data Extremity x-ray #1: Radiologist's Impression: PROCEDURE:? XR ANKLE LT MIN 3V ? INDICATIONS:? twisted t-1, swelling, bruising ? TECHNIQUE:? 3 views of the ankle were acquired.? ? COMPARISON:? None. ? FINDINGS:? ? Bones:? There is a subtle step-off at the distal fibular tip 1.2 cm proximal to the tip of the fibula suspicious for a nondisplaced fracture.? Ankle mortise is normally aligned. ?No suspicious bony lesions.? Degenerative changes of the ankle.? Plantar and Achilles spurs are seen of the calcaneus. ? Soft tissues:? Soft tissue swelling over the lateral malleolus. ? ? IMPRESSION:? Probable nondisplaced fracture of the tip of the left distal fibula. Extremity x-ray #2: Radiologist's Impression: PROCEDURE:? XR TIBIA FIBULA LT 2V ? INDICATIONS:? prox fibula tenderness ? TECHNIQUE:? 2 views of the tibia and fibula were acquired.? ? COMPARISON:? None. ? FINDINGS:? ? Bones:? Nondisplaced fracture of the distal fibula.? Degenerative changes of the knee and ankle. ? Soft tissues:? Soft tissue swelling of the lateral malleolus. ? IMPRESSION:? Nondisplaced fracture of the distal fibula with adjacent soft tissue swelling. [facility] Narrative Medical decision making narrative: Patient does have a distal fibula fracture noticed on the x-ray but no tibia fracture. She does have bruising around her left ankle this is consistent with that diagnosis. There were no other injuries reported from the event. Was placed in a orthopedic boot. Patient denied medication stronger than Tylenol/ibuprofen. She was given return precautions. She expressed understanding and agreement. Discharge Plan Departure Patient Disposition: Home Clinical Impression: Fracture of distal end of fibula Instructions: DI for Ankle Fracture, How to Use a Walking Boot Activity Restrictions/Additional Instructions: You do have a fracture of the fibula which is the small bone on your left ankle. It is a fracture that you can walk on as tolerated. The orthopedic boot is for your comfort. You can take it off to shower and when you were sitting on the couch and having an elevated. I do recommend ice. You can take 1 500 mg Tylenol every 4-6 hours and or 600 mg of ibuprofen every 8 hours as needed for discomfort. Contact the Orthopedic Department at the number provided below for a follow-up. Prescriptions: No Action polyethylene glycol 3350 17 gram/dose powder 17 gm PO QDAY Qty: 527 3RF Estring 2 mg (7.5 mcg /24 hour) ring 1 vag ring vaginal [id number] Qty: 1 3RF triamcinolone acetonide 0.1 % cream 1 applic topical BID Qty: 45 1RF Rx Instructions: use a small amount on the affected areas of the lower legs twice daily up to one week or until clear levothyroxine 100 mcg tablet See Rx Instructions .ROUTE .COMPLEX Qty: 90 3RF Dose Instruction: TAKE ONE TABLET BY MOUTH ONE TIME DAILY Rx Instructions: TAKE ONE TABLET BY MOUTH ONE TIME DAILY amlodipine 10 mg tablet 5 mg PO DAILY Qty: 45 3RF Rx Instructions: Take 1/2 tab daily for blood pressure. losartan [Cozaar] 50 mg tablet 50 mg PO DAILY Qty: 90 3RF Rx Instructions: Take 1 tab daily for hypertension lovastatin 20 mg tablet 20 mg PO BEDTIME Qty: 90 3RF diclofenac sodium [Voltaren Arthritis Pain] 1 % gel 4 g topical QID PRN (Reason: neck pain) Qty: 100 3RF Rx Instructions: apply to neck/top of back up to 4x/day as needed for pain oxyquinoline-sod.lauryl sulfat 0.025-0.01 % gel 1 ea vaginal .weekly Qty: 113.4 3RF Rx Instructions: 1 applicator weekly aspirin 81 mg tablet,delayed release (DR/EC) 81 mg PO 3XW Referrals: Inez Julio ARNP [Primary Care Provider] - Angeles Hamlin MD [Physician] - Stand Alone Forms: Patient Portal/API
--- NOTE | 2022-08-02 14:09 | CM.SWNOTE ---
ED DCP Note Patient is 86 y/o female who presents to ED after ankle injury via EMS. Per X ray patient shows fracture for left distal tibula. Patient's PCP is KELVIN Brownlee, patient has [employer] Medicare and Medicaid. Prior to d/c patient is provided order for FWW. RN requests SURGICAL SUPPLY ASSISTANT consult to discuss possible HH referral. SURGICAL SUPPLY ASSISTANT enters room, patient endorses she resides alone in [place] at [facility]. Patient endorses she is independent at baseline with ADLs. SURGICAL SUPPLY ASSISTANT discusses HH, patient endorses interest for OT and PT, patient denies preference for HH agency. SURGICAL SUPPLY ASSISTANT calls [facility] per HH agency rotation and leaves VM regarding referral and requests return call. SURGICAL SUPPLY ASSISTANT faxes F2F, order and clinicals for referral to [facility]. Plan: Patient to d/c to home with friend upon medical clearance with [facility] referral. Manda Arevalo, MARIONETTE PERFORMER
== END 2022-08-02 13:45 | disposition home or self-care (01) ==
PROVIDERS: Emergency Provider Emergency Medicine; Family Provider Nurse Practitioner; PCP Nurse Practitioner
DX: S82.402A Unspecified fracture of shaft of left fibula, initial encounter for closed fracture (principal); X50.1XXA Overexertion from prolonged static or awkward postures, initial encounter
CPT/HCPCS: 73590; 73610; 99283

== ENCOUNTER → 2022-09-03 14:05 | Outpatient (CLI) | payer MEDICARE, MEDICAID, SELFPAY ==
[2021-07-25 21:43] VITALS: BMI 20.1
--- NOTE | 2022-09-03 | DI.RAD.S_ITS ---
PROCEDURE: XR ANKLE LT MIN 3V INDICATIONS: ANKLE PAIN TECHNIQUE: 3 views of the ankle were acquired. COMPARISON: [facility], CR, XR TIBIA FIBULA LT 2V, 08/02/2022, 12:03. [facility], CR, XR ANKLE LT MIN 3V, 08/02/2022, 11:39. FINDINGS: Bones: Similar appearance and alignment of the nondisplaced lateral malleolus fracture, below the level of the tibial plafond. Soft tissues: Possible tibiotalar joint effusion. Lateral ankle soft tissue swelling is decreased since before. IMPRESSION: Similar appearance and alignment of the nondisplaced lateral malleolus fracture. Dictated by: Amrik Carroll M.D. on 09/03/2022 at 16:03 Approved by: Amrik Carroll M.D. on 09/03/2022 at 16:08
== END ==
PROVIDERS: Family Provider Nurse Practitioner; PCP Nurse Practitioner; Referring Provider Nurse Practitioner; Visit Provider Nurse Practitioner
DX: S82.65XA Nondisplaced fracture of lateral malleolus of left fibula, initial encounter for closed fracture (principal); M25.572 Pain in left ankle and joints of left foot; X58.XXXA Exposure to other specified factors, initial encounter
CPT/HCPCS: 73610

== ENCOUNTER 2022-11-19 11:30 | Outpatient (RCR) | payer MEDICARE, MEDICAID, SELFPAY ==
[2021-07-25 21:43] VITALS: BMI 20.1
--- NOTE | 2022-11-19 17:46 | PT.OIE ---
Current Diagnoses Other abnormalities of gait and mobility (11/19/22) Other fracture of upper and lower end of unspecified fibula, initial encounter for closed fracture (11/19/22) Past Medical History (Last Reviewed 08/02/22 @ 12:08 by Glen Galicia DO) Advanced age Chin laceration Chronic constipation Contusion of left leg Hyperlipidemia Hypertension Hypertensive emergency Hyponatremia Hypothyroidism Mobitz type II incomplete atrioventricular block Noncompliance with medication regimen Pelvic floor relaxation (11/23/13) Pelvic floor relaxation Peripheral neuropathy Rectal bleeding (2017) Shoulder pain Vaginal atrophy (11/23/13) Vaginal atrophy Vaginal pessary in situ (11/23/13) Past Surgical History (Last Reviewed 01/15/22 @ 14:35 by KELVIN Brownlee) History of colonoscopy (05/04/18) History of colonoscopy with polypectomy (02/22/09) History of surgery on arm (06/08/13) History of third molar tooth extraction (1971) History of tonsillectomy (1966) Visit Care Team Role Provider Type KELVIN Brownlee Attending Provider Advanced Pin Setter Family Provider Primary Care Provider Referring Provider Specialty: Family Practice Address: [address] [place] [address] Email: [email or web address] Physical Therapy Initial Evaluation PT-OP-A Visit Information Start: 11/19/22 13:22 Freq: Status: Active Protocol: Document 11/19/22 12:00 DCW (Rec: 11/19/22 13:27 DC [id number]) Out-Patient Physical Therapy Visit Information Visit Information Visit Type Initial Evaluation Visit Start Time 12:00 Visit Stop Time 12:45 Total Visit Minutes 45 Visit Number 1 Number of ENGINEERING OPERATIONS LEADER Visits 0 Evaluation Information Evaluation Date 11/19/22 PT-OP-B Current Condition Start: 11/19/22 13:22 Freq: Status: Active Protocol: Document 11/19/22 12:00 DCW (Rec: 11/19/22 17:34 DCW [id number]) Current Condition History of Current Condition Onset Date 08/01/22 Current Complaints Left knee pain following distal fibula fracture History of Current Condition Pt is an 87 year old female presenting to skilled therapy 3.5 months s/p distal fibula fracture. Pt reports that she was sitting on her couch, got up to get a drink, turned to quickly, and fell over, twisting her ankle. By the next day, she was in severe pain and had significant edema, was taken to the ED, where she was found to nondisplaced distal fibula fracture. Pt was placed in a walking boot, admits that it immediately made my ankle feel better. Pt does not remember quite how long she wore her boot, but after seeing an ortho, was told she wore it about two weeks longer than she needed to, and has since stopped wearing it. Her ankle is actually feeling very good, and her big complaint is that due to wearing the boot for so long, her left knee has been bothering her when walking for an extended period of time. Prior to her injury, she was walking two miles a day. Restarted walking two weeks ago, and has gotten up to six blocks, but feels her knee is going to limit her ambulation distance now. Prior Treatments and Tests Ankle x-ray: IMPRESSION: Nondisplaced fracture of the distal fibula with adjacent soft tissue swelling. per Forrest Hall M.D. on 08/02 PT-OP-C Subjective Start: 11/19/22 13:22 Freq: Status: Active Protocol: Document 11/19/22 12:00 DCW (Rec: 11/19/22 17:34 [facility] [id number]) OP-PT Subjective Patient Comments Patient Comments That boot really seems like it screwed up my knee. PT-OP-F Manual Assessment Start: 11/19/22 13:22 Freq: Status: Active Protocol: Document 11/19/22 12:00 DCW (Rec: 11/19/22 17:34 [facility] [id number]) Manual Assessments Soft Tissue Assessment Soft Tissue Mobility Assessment Mild edema and tenderness to palpation 05/28: complaint of pain along medial patellar tendon. PT-OP-G Mobility & Gait Start: 11/19/22 13:22 Freq: Status: Active Protocol: Document 11/19/22 12:00 DCW (Rec: 11/19/22 17:34 [facility] [id number]) OP Gait Assessment Comments Gait Comments Pt ambulates with decreased left dorsiflexion, which limits her left push-off PT-OP-K Range of Motion Start: 11/19/22 13:22 Freq: Status: Active Protocol: Document 11/19/22 12:00 DCW (Rec: 11/19/22 17:34 DCW [id number]) Knee Goniometric Range of Motion Knee Left Knee ROM WFL Yes Patient Position Supine Flexion Active (degrees) 135 Extension Active (degrees) 0 Ankle and Foot Goniometric Range of Motion Ankle and Foot Left Active Ankle/Foot ROM WFL Yes Testing Position Sitting Dorsiflexion with Knee Extended 10 Plantarflexion 40 Inversion 45 Eversion 35 PT-OP-M Strength Start: 11/19/22 13:22 Freq: Status: Active Protocol: Document 11/19/22 12:00 DCW (Rec: 11/19/22 17:34 DCW [id number]) Ankle/Foot Strength Ankle and Foot Manual Muscle Testing Left Dorsiflexion (L4) 4+ Good+ Plantarflexion (S1) 4+ Good+ Inversion 4+ Good+ Eversion (S1) 4+ Good+ PT-OP-Q Treatments Start: 11/19/22 13:22 Freq: Status: Active Protocol: Document 11/19/22 12:00 DCW (Rec: 11/19/22 13:27 DCW [id number]) Therapeutic Exercises Standing Exercises Squat Standing Exercise Name Squats Comments @ chair Calf Stretch Standing Exercise Name Runner's stretch Side left Heel Raises Standing Exercise Name Eccentric Heel Raises Side left Comments double leg up->single leg down Toe Raises Standing Exercise Name Toe Raises Side bilateral Gait Training Gait Activity Heel-toe Comments Focus on heel-toe and push-off gait pattern PT-OP-T Assessment and Plan Start: 11/19/22 13:22 Freq: Status: Active Protocol: Document 11/19/22 12:00 DCW (Rec: 11/19/22 17:46 DCW [id number]) Physical Therapy Assessment Rehab Potential Rehabilitation Potential Excellent Evaluation Complexity Number of Personal Factors/Comorbidities 1-2 Number of Body Systems Impaired 1-2 Clinical Presentation at Evaluation Stable Impairments Impairments Functional Activities, Functional Mobility,Gait,Pain Goals Two Impairment Pt exhibits with decreased left dorsiflexion during stance phase of gait Slagger Goal (LTG) Pt to demonstrate proper DF during left stance phase in order to improve left foot push-off. LTG Duration 01/06/23 One Impairment Pt does not have an appropriate home exercise program Short Term Goal (STG) Pt to be independent and complaint with an appropriate HEP STG Duration 12/19/22 Assessment Summary Assessment Pt presents with mild changes to gait following recent ankle fracture, which appears to be causing increased pain due to abnormal forces through her left knee. Overall, pt's ankle mobility is WNL, is demonstrating very good strength and ROM, however, likely due to extended time spent in walking boot, pt does not allow for much dorsiflexion or plantar flexion during gait, keeping her left ankle in a relatively neutral position during gait. Pt was provided with a number of stretching and strengthening exercises to help improve ankle mobility during gait. Pt has been treated at this facility previously and has always been excessively compliant with any provided HEP. Pt feels pretty confident that after having her gait assessed and getting instructions with an appropriate HEP, she will be appropriate for just following through independently. Therapist is in agreement, however instructed pt to phone to schedule a follow-up within one month if she has any change in symptoms, questions, difficulty with HEP , or does not feel the provided exercises are beneficial. If pt has not scheduled a follow-up within one month, she will be discharged at that time. Physical Therapy Plan Frequency and Duration Frequency of Treatment Every Other Week Plan of Care Start Date 11/19/22 Plan of Care End Date 01/06/23 Therapeutic Interventions Therapeutic Interventions Gait Training,Home Exercise Program,Joint Mobilizations, Manual Therapy,Patient/ Caregiver Education,Self-Care/ Home Management,Soft Tissue Mobilization,Therapeutic Activities,Therapeutic Exercises Next Visit Focus/Plan Next Note Type Treatment Note Next Visit Plan Assess effectiveness of HEP and adjust as needed
--- NOTE | 2022-11-19 17:47 | PT.OPPOC ---
Physical, Occupational & Speech Therapy At [facility] Current Diagnoses Other abnormalities of gait and mobility (11/19/22) Other fracture of upper and lower end of unspecified fibula, initial encounter for closed fracture (11/19/22) Visit Care Team Role Provider Type KELVIN Brownlee Attending Provider Advanced Drill Sharpener Family Provider Primary Care Provider Referring Provider Specialty: [facility] Practice Address: [address] [place] [address], [facility] Email: [email or web address] Plan Of Care PT-OP-T Assessment and Plan Start: 11/19/22 13:22 Freq: Status: Active Protocol: Document 11/19/22 12:00 DCW (Rec: 11/19/22 17:46 DCW [id number]) Physical Therapy Assessment Rehab Potential Rehabilitation Potential Excellent Evaluation Complexity Number of Personal Factors/Comorbidities 1-2 Number of Body Systems Impaired 1-2 Clinical Presentation at Evaluation Stable Impairments Impairments Functional Activities, Functional Mobility,Gait,Pain Goals Two Impairment Pt exhibits with decreased left dorsiflexion during stance phase of gait Vp Integrity Goal (LTG) Pt to demonstrate proper DF during left stance phase in order to improve left foot push-off. LTG Duration 01/06/23 One Impairment Pt does not have an appropriate home exercise program Short Term Goal (STG) Pt to be independent and complaint with an appropriate HEP STG Duration 12/19/22 Assessment Summary Assessment Pt presents with mild changes to gait following recent ankle fracture, which appears to be causing increased pain due to abnormal forces through her left knee. Overall, pt's ankle mobility is WNL, is demonstrating very good strength and ROM, however, likely due to extended time spent in walking boot, pt does not allow for much dorsiflexion or plantar flexion during gait, keeping her left ankle in a relatively neutral position during gait. Pt was provided with a number of stretching and strengthening exercises to help improve ankle mobility during gait. Pt has been treated at this facility previously and has always been excessively compliant with any provided HEP. Pt feels pretty confident that after having her gait assessed and getting instructions with an appropriate HEP, she will be appropriate for just following through independently. Therapist is in agreement, however instructed pt to phone to schedule a follow-up within one month if she has any change in symptoms, questions, difficulty with HEP , or does not feel the provided exercises are beneficial. If pt has not scheduled a follow-up within one month, she will be discharged at that time. Physical Therapy Plan Frequency and Duration Frequency of Treatment Every Other Week Plan of Care Start Date 11/19/22 Plan of Care End Date 01/06/23 Therapeutic Interventions Therapeutic Interventions Gait Training,Home Exercise Program,Joint Mobilizations, Manual Therapy,Patient/ Caregiver Education,Self-Care/ Home Management,Soft Tissue Mobilization,Therapeutic Activities,Therapeutic Exercises Next Visit Focus/Plan Next Note Type Treatment Note Next Visit Plan Assess effectiveness of HEP and adjust as needed Plan of Care Dates Plan of Care Start Date 11/19/22 Plan of Care End Date 01/06/23 Electronically Signed by: Shivam Costa, PT 11/19/22 [id number] If you are in agreement with this Plan of Care, please return a signed and dated copy. I have reviewed this Plan of Care and certify that the skilled therapy services above are required to meet the patient?s needs. Physician Signature Date Printed Name and Credentials Clinical Instructor Signature Printed Name and Credentials
--- NOTE | 2022-12-22 10:39 | PT.OPDS ---
Current Diagnoses Other abnormalities of gait and mobility (11/19/22) Other fracture of upper and lower end of unspecified fibula, initial encounter for closed fracture (11/19/22) Other fracture of upper and lower end of unspecified fibula, subsequent encounter for closed fracture with routine healing (11/19/22) Visit Care Team Role Provider Type KEVLIN Brownlee Attending Provider Advanced Dobby Loom Fixer Family Provider Primary Care Provider Referring Provider Specialty: [facility] Address: [address] [place] [address], [facility] Email: [email or web address] Visit Number Visit Number 1 Discharge Summary PT-OP-B Current Condition Start: 11/19/22 13:22 Freq: Status: Active Protocol: Document 11/19/22 12:00 DCW (Rec: 11/19/22 17:34 DCW [id number]) Current Condition History of Current Condition Onset Date 08/01/22 Current Complaints Left knee pain following distal fibula fracture History of Current Condition Pt is an 87 year old female presenting to skilled therapy 3.5 months s/p distal fibula fracture. Pt reports that she was sitting on her couch, got up to get a drink, turned to quickly, and fell over, twisting her ankle. By the next day, she was in severe pain and had significant edema , was taken to the ED, where she was found to nondisplaced distal fibula fracture. Pt was placed in a walking boot, admits that it immediately made my ankle feel better. Pt does not remember quite how long she wore her boot, but after seeing an ortho, was told she wore it about two weeks longer than she needed to, and has since stopped wearing it. Her ankle is actually feeling very good, and her big complaint is that due to wearing the boot for so long, her left knee has been bothering her when walking for an extended period of time. Prior to her injury, she was walking two miles a day. Restarted walking two weeks ago, and has gotten up to six blocks, but feels her knee is going to limit her ambulation distance now. Prior Treatments and Tests Ankle x-ray: IMPRESSION: Nondisplaced fracture of the distal fibula with adjacent soft tissue swelling. per Forrest Hall M.D. on 08/02 PT-OP-C Subjective Start: 11/19/22 13:22 Freq: Status: Active Protocol: Document 11/19/22 12:00 DCW (Rec: 11/19/22 17:34 DCW [id number]) OP-PT Subjective Patient Comments Patient Comments That boot really seems like it screwed up my knee. PT-OP-F Manual Assessment Start: 11/19/22 13:22 Freq: Status: Active Protocol: Document 11/19/22 12:00 DCW (Rec: 11/19/22 17:34 DCW [id number]) Manual Assessments Soft Tissue Assessment Soft Tissue Mobility Assessment Mild edema and tenderness to palpation 05/28: complaint of pain along medial patellar tendon. PT-OP-G Mobility & Gait Start: 11/19/22 13:22 Freq: Status: Active Protocol: Document 11/19/22 12:00 DCW (Rec: 11/19/22 17:34 DCW [id number]) OP Gait Assessment Comments Gait Comments Pt ambulates with decreased left dorsiflexion, which limits her left push-off PT-OP-K Range of Motion Start: 11/19/22 13:22 Freq: Status: Active Protocol: Document 11/19/22 12:00 DCW (Rec: 11/19/22 17:34 DCW [id number]) Knee Goniometric Range of Motion Knee Left Knee ROM WFL Yes Patient Position Supine Flexion Active (degrees) 135 Extension Active (degrees) 0 Ankle and Foot Goniometric Range of Motion Ankle and Foot Left Active Ankle/Foot ROM WFL Yes Testing Position Sitting Dorsiflexion with Knee Extended 10 Plantarflexion 40 Inversion 45 Eversion 35 PT-OP-M Strength Start: 11/19/22 13:22 Freq: Status: Active Protocol: Document 11/19/22 12:00 DCW (Rec: 11/19/22 17:34 DCW [id number]) Ankle/Foot Strength Ankle and Foot Manual Muscle Testing Left Dorsiflexion (L4) 4+ Good+ Plantarflexion (S1) 4+ Good+ Inversion 4+ Good+ Eversion (S1) 4+ Good+ PT-OP-T Assessment and Plan Start: 11/19/22 13:22 Freq: Status: Active Protocol: Document 12/22/22 10:38 DCW (Rec: 12/22/22 10:39 DCW [id number]) Physical Therapy Assessment Goals Two Impairment Pt exhibits with decreased left dorsiflexion during stance phase of gait Cutting Machine Fixer Goal (LTG) Pt to demonstrate proper DF during left stance phase in order to improve left foot push-off. LTG Duration 01/06/23 One Impairment Pt does not have an appropriate home exercise program Short Term Goal (STG) Pt to be independent and complaint with an appropriate HEP STG Duration 12/19/22 Assessment Summary Assessment Pt instructed at the time of her evaluation to phone within one month if she required a follow-up visit. Pt has now not been seen in one month, and has not requested any follow-up. Pt will be discharged from skilled PT at this time. Physical Therapy Plan Frequency and Duration Frequency of Treatment Every Other Week Plan of Care Start Date 11/19/22 Plan of Care End Date 01/06/23 Discharge Physical Therapy Discharge Reasons No Longer Attending PT Next Visit Focus/Plan Next Note Type Discharge Summary
== END 2022-12-22 16:15 | disposition home or self-care (01) ==
LOC: PHYS 11:30
PROVIDERS: Family Provider Nurse Practitioner; PCP Nurse Practitioner; Referring Provider Nurse Practitioner; Visit Provider Nurse Practitioner
DX: R26.89 Other abnormalities of gait and mobility; S82.839D Other fracture of upper and lower end of unspecified fibula, subsequent encounter for closed fracture with routine healing
CPT/HCPCS: 97110; 97161

== ENCOUNTER → 2022-12-11 08:06 | Outpatient (CLI) | payer MEDICARE, MEDICAID, SELFPAY ==
[2021-07-25 21:43] VITALS: BMI 20.1
[2022-12-11 09:54] LABS: Alanine Aminotransferase 15 IU/L (<35); Albumin 3.9 g/dL (3.5-5.0); Albumin Globulin Ratio 1.3 (1.0-2.8); Alkaline Phosphatase 94 U/L (38-126); Aspartate Aminotransferase 24 IU/L (14-36); BUN Creatinine Ratio 18.9 (6-22); Bilirubin Total 0.3 mg/dL (0.2-1.3); Blood Urea Nitrogen 20 mg/dL (7-17); Calcium 9.2 mg/dL (8.4-10.2); Carbon Dioxide 29 mmol/L (22-32); Chloride 95 mmol/L (98-107); Cholesterol 149 mg/dL (140-199); Estimated Glomerular Filt Rate 51 mL/min (>60); Globulin 2.9 g/dL (1.7-4.1); Glucose 87 mg/dL (80-110); HDL Cholesterol 72 mg/dL (40-60); HEMOLYSIS < 15 (0-50); LDL Cholesterol Calculated 63 mg/dL (<100); Potassium 4.4 mmol/L (3.4-5.1); Sodium 131 mmol/L (137-145); Total Protein 6.8 g/dL (6.3-8.2); Triglycerides 69 mg/dL (35-150)
[2022-12-11 10:14] LABS: Thyroid Stimulating Hormone 0.954 uIU/mL (0.47-4.68)
--- NOTE | 2022-12-11 13:48 | DI.MG.S_ITS ---
BILATERAL DIGITAL SCREENING MAMMOGRAM 3D/2D WITH CAD: 12/11/2022 CLINICAL: Routine screening. Baseline exam. Comparison is made to exams dated: 06/11/2009 mammogram and 05/29/2008 mammogram - [facility]. There are scattered areas of fibroglandular density in both breasts (category b / 25%-50% glandular tissue). Current study was also evaluated with a Computer Aided Detection (CAD) system. No significant masses, calcifications, or other findings are seen in either breast. There has been no significant interval change. IMPRESSION: NEGATIVE There is no mammographic evidence of malignancy. A 1 year screening mammogram is recommended. This exam was interpreted at Station ID: [id number]. NOTE: For mammograms, a report in lay terms will be sent to the patient. Approximately 15% of breast malignancies will not be visualized mammographically. In the management of a palpable breast mass, a negative mammogram must not discourage biopsy of a clinically suspicious lesion. Electronically Signed By: Amrik hdez/jacinta:12/11/2022 14:20:34 letter sent: Normal Exam ACR BI-RADS Category 1: Negative [id number]
--- NOTE | 2022-12-11 14:32 | DI.DEXA.S_ITS ---
Bone Density Report Name: RADHA TILLMAN Age: 87 Sex: Female Ethnicity: White Date of : 1935 Indication: postmenopausal; screening for osteoporosis; Referring Provider: IRENE VALENZUELA Study: Bone densitometry was performed. Exam Date: December 11, 2022 Accession number: [id number] Bone Density: Region BMD T-score Z-score Classification AP Spine(L1-L4) 0.806 -2.2 0.7 Osteopenia Femoral Neck (Left) 0.526 -2.9 -0.4 Osteoporosis Total Hip (Left) 0.654 -2.4 0.0 Osteopenia Femoral Neck (Right) 0.525 -2.9 -0.4 Osteoporosis Total Hip (Right) 0.634 -2.5 -0.2 Osteoporosis Total Hip Mean 0.644 -2.5 -0.1 Osteopenia World Health Organization criteria for BMD impression classify patients as: Normal (T-score at or above -1.0), Osteopenia (T-score between -1.0 and -2.5), or Osteoporosis (T-score at or below -2.5). 10-year Fracture Risk: FRAX not reported because: Some T-score for Spine Total or Hip Total or Femoral Neck at or below -2.5 Impression: The patient has osteoporosis, based on the Left Femoral Neck T-score. Discussion: INCREASED RISK OF FRACTURE. BONE DENSITY IS UNDESIRABLY LOW AT ONE OR MORE SKELETAL SITES, CONSISTENT WITH POSTMENOPAUSAL OSTEOPOROSIS. This patient's lowest T-score meets the World Health Organization's (WHO) criteria for osteoporosis at one or more sites (T-score -2.5 or below). In untreated patients, the risk of osteoporotic fracture increases approximately two-fold for each 1.0 SD decrease in T-score. Low bone density is not the only risk factor for fracture; also consider factors such as patient's age, frailty or poor health, risk of falling, risk of injury, previous osteoporotic fracture, family history of osteoporosis, cigarette smoking, low body weight, etc. Not everyone with low bone mineral density has osteoporosis; osteomalacia and other metabolic bone disorders should also be considered. Patients who have osteoporosis should be evaluated for specific diseases and conditions (secondary causes) that may cause or contribute to bone loss. The [place] Association [employer] Clinical Endocrinologists (AACE) and National Osteoporosis Foundation (NOF) recommend pharmacologic intervention for all postmenopausal women whose T-score is in this range. The patient should follow a healthful lifestyle (good nutrition with adequate calcium and vitamin D, and appropriate weight-bearing exercise). Follow-Up: Consider a repeat BMD and Vertebral Fracture Assessment (VFA) exam in 2 years or sooner if medically necessary, to reassess this patient's status. Reported by: REMINGTON MENDOZA M.D. on 12/11/2022 2:46:00 PM.
[2022-12-11 18:47] LABS: Creatinine Urine Random 65.4 mg/dL
[2022-12-11 18:54] LABS: Microalbumi Creatinin Ratio Ur 181.9 ug/mg CR (<30); Microalbumin Urine Random 11.9 mg/dL (0-1.6)
== END ==
PROVIDERS: Family Provider Nurse Practitioner; PCP Nurse Practitioner; Referring Provider Nurse Practitioner; Visit Provider Nurse Practitioner
DX: Z12.31 Encounter for screening mammogram for malignant neoplasm of breast (principal); Z13.820 Encounter for screening for osteoporosis; M81.0 Age-related osteoporosis without current pathological fracture; Z78.0 Asymptomatic menopausal state; E03.9 Hypothyroidism, unspecified; E78.2 Mixed hyperlipidemia; E87.1 Hypo-osmolality and hyponatremia; I10 Essential (primary) hypertension; R53.82 Chronic fatigue, unspecified; Z79.899 Other long term (current) drug therapy
CPT/HCPCS: 36415; 77063; 77067; 77080; 80053; 80061; 82043; 82570; 84443

== ENCOUNTER → 2023-03-25 14:46 | Outpatient (CLI) | payer MEDICARE, MEDICAID, SELFPAY ==
[2021-07-25 21:43] VITALS: BMI 20.1
[2023-03-25 15:31] LABS: Add Manual Diff / Slide Review NO; Basophils Absolute Auto 100 /uL (0-100); Basophils Percent Auto 0.8 % (0-2); Eosinophils Absolute Auto 100 /uL (0-450); Eosinophils Percent Auto 1.5 % (2-4); Hematocrit 31.1 % (36-46); Hemoglobin 10.7 g/dL (12.0-16.0); Lymphocytes Absolute Auto 2200 /uL (1100-4500); Lymphocytes Percent Auto 27.9 % (25-40); Mean Corpuscular HGB Conc 34.5 % (30-36); Mean Corpuscular Hemoglobin 30.8 PG (26-34); Mean Corpuscular Volume 89.2 fL (80-100); Monocytes Absolute Auto 1400 /uL (0-900); Monocytes Percent Auto 17.1 % (3-14); Neutrophils Absolute Auto 4200 /uL (1500-7000); Neutrophils Percent Auto 52.7 % (50-75); Platelet Count 303 X10^3/uL (150-400); Red Blood Cell Count 3.48 X10^6/uL (4.0-5.2); Red Cell Distribution Width 13.7 % (11.6-14.8)
[2023-03-25 15:51] LABS: Alanine Aminotransferase 14 IU/L (<35); Albumin Globulin Ratio 1.3 (1.0-2.8); Alkaline Phosphatase 79 U/L (38-126); Aspartate Aminotransferase 26 IU/L (14-36); BUN Creatinine Ratio 27.3 (6-22); Bilirubin Total 0.2 mg/dL (0.2-1.3); Blood Urea Nitrogen 24 mg/dL (7-17); Calcium 9.1 mg/dL (8.4-10.2); Carbon Dioxide 26 mmol/L (22-32); Chloride 91 mmol/L (98-107); Estimated Glomerular Filt Rate > 60 mL/min (>60); Glucose 100 mg/dL (80-110); HEMOLYSIS < 15 (0-50); Potassium 4.1 mmol/L (3.4-5.1); Sodium 126 mmol/L (137-145)
[2023-03-25 16:20] LABS: Thyroid Stimulating Hormone 0.873 uIU/mL (0.47-4.68)
== END ==
PROVIDERS: Family Provider Nurse Practitioner; PCP Nurse Practitioner; Referring Provider Nurse Practitioner; Visit Provider Nurse Practitioner
DX: R53.83 Other fatigue (principal)
CPT/HCPCS: 36415; 80053; 84443; 85025

== ENCOUNTER → 2023-03-26 12:39 | Outpatient (CLI) | payer MEDICARE, MEDICAID, SELFPAY ==
[2021-07-25 21:43] VITALS: BMI 20.1
--- NOTE | 2023-03-26 12:42 | DI.RAD.S_ITS ---
PROCEDURE: XR KNEE LT 3V INDICATIONS: left knee pain and weakness TECHNIQUE: 3 views of the knee were acquired. COMPARISON: [facility], , KNEE 3V RIGHT, 09/06/2009, 9:54. FINDINGS: Bones: No fractures or dislocations. No suspicious bony lesions. Soft tissues: Chondrocalcinosis is present within the knee. No joint effusion. No suspicious soft tissue calcifications. IMPRESSION: Degenerative changes of the right knee with chondrocalcinosis. Dictated by: Forrest Hall M.D. on 03/26/2023 at 16:39 Approved by: Forrest Hall M.D. on 03/26/2023 at 16:40
--- NOTE | 2023-03-26 12:42 | DI.RAD.S_ITS ---
PROCEDURE: XR CERVICAL SPINE 2V OR 3V INDICATIONS: left sided neck pain TECHNIQUE: 4 view(s) of the cervical spine were acquired. COMPARISON: None. FINDINGS: Bones: No fractures or dislocations to the T1 level. Mild degenerative changes of the cervical spine. 2 mm anterolisthesis of C6-7 and C7-T1. The lateral masses of C1 appear intact on the odontoid view. No suspicious bony lesions. Disc space narrowing of C7-T1. Soft tissues: No prevertebral soft tissue swelling. IMPRESSION: Degenerative changes of the cervical spine with disc space narrowing of C7-T1 and anterolisthesis of C6-7 and C7-T1. Dictated by: Forrest Hall M.D. on 03/26/2023 at 16:35 Approved by: Forrest Hall M.D. on 03/26/2023 at 16:38
== END ==
PROVIDERS: Family Provider Nurse Practitioner; PCP Nurse Practitioner; Referring Provider Nurse Practitioner; Visit Provider Nurse Practitioner
DX: M47.812 Spondylosis without myelopathy or radiculopathy, cervical region (principal); M43.12 Spondylolisthesis, cervical region; M48.03 Spinal stenosis, cervicothoracic region; M54.2 Cervicalgia; M11.261 Other chondrocalcinosis, right knee; M25.562 Pain in left knee
CPT/HCPCS: 72040; 73562

== ENCOUNTER → 2023-08-07 10:21 | Outpatient (CLI) | payer MEDICARE, MEDICAID, SELFPAY ==
[2023-04-06 17:03] VITALS: BMI 20.1
[2023-08-07 11:04] LABS: Add Manual Diff / Slide Review NO; Basophils Absolute Auto 100 /uL (0-100); Basophils Percent Auto 0.8 % (0-2); Eosinophils Absolute Auto 100 /uL (0-450); Hematocrit 33.4 % (36-46); Hemoglobin 11.6 g/dL (12.0-16.0); Lymphocytes Absolute Auto 2600 /uL (1100-4500); Lymphocytes Percent Auto 28.2 % (25-40); Mean Corpuscular HGB Conc 34.6 % (30-36); Mean Corpuscular Hemoglobin 30.1 PG (26-34); Mean Corpuscular Volume 87.1 fL (80-100); Monocytes Absolute Auto 800 /uL (0-900); Monocytes Percent Auto 9.2 % (3-14); Neutrophils Absolute Auto 5600 /uL (1500-7000); Neutrophils Percent Auto 60.8 % (50-75); Platelet Count 307 X10^3/uL (150-400); Red Blood Cell Count 3.84 X10^6/uL (4.0-5.2); White Blood Cell Count 9.2 X10^3/uL (4.5-11.0)
[2023-08-07 11:44] LABS: Alanine Aminotransferase 14 IU/L (<35); Albumin 4.2 g/dL (3.5-5.0); Albumin Globulin Ratio 1.4 (1.0-2.8); Alkaline Phosphatase 62 U/L (38-126); Aspartate Aminotransferase 28 IU/L (14-36); BUN Creatinine Ratio 23.3 (6-22); Bilirubin Total 0.6 mg/dL (0.2-1.3); Blood Urea Nitrogen 24 mg/dL (7-17); Calcium 9.7 mg/dL (8.4-10.2); Carbon Dioxide 28 mmol/L (22-32); Chloride 92 mmol/L (98-107); Estimated Glomerular Filt Rate 53 mL/min (>60); Globulin 3.1 g/dL (1.7-4.1); Glucose 65 mg/dL (80-110); HEMOLYSIS < 15 (0-50); Iron 96 ug/dL (37-170); Potassium 4.1 mmol/L (3.4-5.1); Sodium 126 mmol/L (137-145); Total Protein 7.3 g/dL (6.3-8.2)
[2023-08-07 11:55] LABS: Percent Iron Saturation 30 % (15-50); Total Iron Binding Capacity 325 ug/dL (265-497); Transferrin 266 mg/dL (206-381)
== END ==
LOC: LAB 10:22
PROVIDERS: Family Provider Nurse Practitioner; PCP Nurse Practitioner; Referring Provider Nurse Practitioner; Visit Provider Nurse Practitioner
DX: D64.9 Anemia, unspecified (principal); M81.0 Age-related osteoporosis without current pathological fracture; E87.1 Hypo-osmolality and hyponatremia
CPT/HCPCS: 36415; 80053; 83540; 83550; 85025

== ENCOUNTER → 2023-10-13 14:05 | Outpatient (CLI) | payer MEDICARE, MEDICAID, SELFPAY ==
[2023-08-12 14:59] VITALS: BMI 20.1
--- NOTE | 2023-10-13 14:06 | DI.RAD.S_ITS ---
PROCEDURE: XR KNEE RT 3V INDICATIONS: RIGHT KNEE PAIN TECHNIQUE: 3 views of the knee were acquired. COMPARISON: [facility], , KNEE 3V RIGHT, 09/06/2009, 9:54. [facility], , XR KNEE LT 3V, 03/26/2023, 13:16. FINDINGS: Bones: No fractures or dislocations. No suspicious bony lesions. Moderate medial and mild lateral compartment joint space narrowing nevertheless increased in the interval. Stippled meniscal calcification present. Generalized decreased osseous mineralization noted. Patellofemoral joint space narrowing Soft tissues: No joint effusion. No suspicious soft tissue calcifications. IMPRESSION: Tricompartmental osteoarthritis and chondrocalcinosis, increased from the prior Approved by: Eleno Gaona M.D. on 10/13/2023 at 17:54
== END ==
PROVIDERS: Family Provider Nurse Practitioner; PCP Nurse Practitioner; Referring Provider Anesthesiology; Visit Provider Anesthesiology
DX: M17.0 Bilateral primary osteoarthritis of knee (principal); M11.261 Other chondrocalcinosis, right knee; M25.561 Pain in right knee; R29.898 Other symptoms and signs involving the musculoskeletal system; G89.29 Other chronic pain
CPT/HCPCS: 73562; 99214

== ENCOUNTER 2023-11-24 15:15 | Outpatient (RCR) | payer MEDICARE, MEDICAID, SELFPAY ==
[2023-08-12 14:59] VITALS: BMI 20.1
--- NOTE | 2023-11-17 17:39 | PT.OIE ---
Current Diagnoses Other symptoms and signs involving the musculoskeletal system (11/17/23) Past Medical History (Last Updated 10/13/23 @ 15:22 by Santos Nuñez MD) Advanced age Anemia Bilateral primary osteoarthritis of knee Chin laceration Chronic constipation Contusion of left leg Hyperlipidemia Hypertension Hypertensive emergency Hyponatremia Hypothyroidism Mobitz type II incomplete atrioventricular block Noncompliance with medication regimen Osteoporosis, post-menopausal Pelvic floor relaxation (11/23/13) Pelvic floor relaxation Peripheral neuropathy Popping of both knee joints Rectal bleeding (2018) Right knee pain Shoulder pain Vaginal atrophy (11/23/13) Vaginal atrophy Vaginal pessary in situ (11/23/13) Past Surgical History (Last Reviewed 10/13/23 @ 15:20 by Santos Nuñez MD) History of colonoscopy (05/04/18) History of colonoscopy with polypectomy (02/22/09) History of surgery on arm (06/08/13) History of third molar tooth extraction (1971) History of tonsillectomy (1966) Visit Care Team Role Provider Type KELVIN Brownlee Family Provider Advanced Tube Splicer Primary Care Provider Specialty: Family Practice Address: [address] [place] [address], [facility] Email: [email or web address] Santos Nuñez MD Attending Provider Physician Referring Provider Specialty: Anesthesiology Interventional Radiology Pain Management Address: [address] [place] [address], [id number] Email: [email or web address] Physical Therapy Initial Evaluation PT-OP-A Visit Information Start: 11/12/23 08:33 Freq: Status: Active Protocol: Document 11/17/23 15:19 [facility] (Rec: 11/17/23 16:03 [facility] [id number]) Out-Patient Physical Therapy Visit Information Visit Information Visit Type Initial Evaluation Visit Start Time 15:19 Visit Stop Time 16:02 Visit Number 1 Number of CIRCULATOR Visits 0 PT-OP-B Current Condition Start: 11/12/23 08:33 Freq: Status: Active Protocol: Document 11/17/23 15:19 [facility] (Rec: 11/17/23 16:03 [facility] [id number]) Current Condition History of Current Condition Current Complaints B knee stiffness and clicking History of Current Condition Pt reports B knee pain and have a click when she walks. She is told PT, injetions then surgery if those don't work. Pt enjoys ballroom dancing. Exercsies 5 hours a week (3 hrs of functional fitness, 1 hr ballroom lessons and 1 hr dancing) and in summer 2 miles a day and the other day did 4 miles. Pt reports she is aware of her L knee. When she wakes up in the AM, she does some exercises until her knees warm up. They get really stiff and can't sit well d/t knees being stiff. Broke L ankle last summer and recovered w/o surgery. Clicking in B knees started this past year. Since about 81 y.o., pt had knees feel stiff . Treatment Goals Patient/Caregiver Goals dec clicking and dec knee stiffness PT-OP-F Manual Assessment Start: 11/12/23 08:33 Freq: Status: Active Protocol: Document 11/17/23 15:19 [facility] (Rec: 11/18/23 08:06 [facility] [id number]) Manual Assessments Soft Tissue Assessment Soft Tissue Mobility Assessment palpable popping and crepetis on R>L lat; tightness B ITB and quad PT-OP-K Range of Motion Start: 11/12/23 08:33 Freq: Status: Active Protocol: Document 11/17/23 15:19 [facility] (Rec: 11/17/23 16:03 [facility] [id number]) Knee Goniometric Range of Motion Knee Right Flexion Active (degrees) 130 Extension Active (degrees) 6 Comments discomfort w/change in position and lat clicking noted Left Flexion Active (degrees) 122 Extension Active (degrees) 6 PT-OP-M Strength Start: 11/12/23 08:33 Freq: Status: Active Protocol: Document 11/17/23 15:19 [facility] (Rec: 11/17/23 16:03 [facility] [id number]) Hip Strength Hip Manual Muscle Testing Right Flexion (L2) 3+ Fair+ Extension (S1) 3 Fair Abduction 4- Good- Adduction 3+ Fair+ External Rotation 4- Good- Internal Rotation 5 Normal Left Flexion (L2) 4- Good- Extension (S1) 3 Fair Abduction 3+ Fair+ Adduction 4- Good- External Rotation 4- Good- Internal Rotation 5 Normal Comments discomfort w/ER resistance if IR ; cramping HS B w/hip ext Knee Strength Knee Manual Muscle Testing Right Flexion (S2) 5 Normal Extension (L3) 5 Normal Left Flexion (S2) 5 Normal Extension (L3) 5 Normal Ankle/Foot Strength Ankle and Foot Manual Muscle Testing Right Dorsiflexion (L4) 5 Normal Plantarflexion (S1) 5 Normal Left Dorsiflexion (L4) 5 Normal Plantarflexion (S1) 5 Normal Comments seated testing PT-OP-Q Treatments Start: 11/12/23 08:33 Freq: Status: Active Protocol: Document 11/17/23 15:19 [facility] (Rec: 11/17/23 16:03 [facility] [id number]) Self-Care/Home Management Treatment Education Other Education 12 min: discussion w/pt re: talking to her primary if she wants to see ortho sooner rather than later so she can get a referral as she is concerned about waiting. Discussed how PT can help work on strenght and mobility and if it doesn't work, we do not continue and she consults ortho. Goal would be gaining strength and mobility to knee to dec symptoms PT-OP-T Assessment and Plan Start: 11/12/23 08:33 Freq: Status: Active Protocol: Document 11/17/23 15:19 [facility] (Rec: 11/17/23 16:03 [facility] [id number]) Physical Therapy Assessment Rehab Potential Rehabilitation Potential Good Evaluation Complexity Number of Personal Factors/Comorbidities 3 or More Number of Body Systems Impaired 4 or More Clinical Presentation at Evaluation Evolving Impairments Impairments Activity Tolerance,Balance, Functional Activities, Functional Mobility,Gait,Pain, Posture,ROM,Soft Tissue Mobility,Strength Goals strength Short Term Goal (STG) Pt will be indep w/HEP STG Duration 12/21 Alf Goal (LTG) Pt will score at least 4+/5 on all BLE MMT to show improved strength and stability LTG Duration 8. discomfort Pet Trainer Goal (LTG) Pt will report dec instances of clickng, stiffness and discomfort by at least 75%. LTG Duration 01/19 Assessment Summary Assessment Pt presents w/B knee clicking and stiffness w/occasional discomfort noted. She has difficulty w/sedentary positions d/t knees getting stiff. Clicking was notable today during ROM testing on R knee and w/rotation hip MMT testing L knee. She is very active and motivated to improve. She does not want injections in her knee. She has some dec ROM in knee w/ pain and some weakness in hips especially that could be affecting knee pain. Arthritis is evident in imaging and consistent w/pt subjective reports. Pt would benefit from skilled PT to work on strength, ROM, balance and mobility in order to dec discomfort and clicking. Physical Therapy Plan Frequency and Duration Frequency of Treatment 2x/Week Duration of treatment (weeks) 8 Plan of Care Start Date 11/17/23 Plan of Care End Date 01/20/24 Therapeutic Interventions Therapeutic Interventions Balance Training,Gait Training ,Home Exercise Program,Joint Mobilizations,Manual Therapy, Neuromuscular Re-education, Orthotic/Prosthetic Management ,Patient/Caregiver Education, Self-Care/Home Management,Soft Tissue Mobilization,Taping, Therapeutic Activities, Therapeutic Exercises Modalities Cold Pack/Ice Massage,Electric Stimulation,Hot Packs, Infrared Therapy,Ultrasound Next Visit Focus/Plan Next Note Type Treatment Note Next Visit Plan HEP:TKE (standing or SAQ), mini squat, s/l abd, clamshells, standing hip ext manual: STM to quads and ITB, patellofemoral glides In clinic: try resisted fwd/ back walk & sidesteps
--- NOTE | 2023-11-17 17:40 | PT.OPPOC ---
Physical, Occupational & Speech Therapy At [facility] Current Diagnoses Other symptoms and signs involving the musculoskeletal system (11/17/23) Visit Care Team Role Provider Type KELVIN Brownlee Family Provider Advanced Operator Electronic Warfare Primary Care Provider Specialty: Family Practice Address: [address] [place] [address], [address] Email: [email or web address] Santos Nuñez MD Attending Provider Physician Referring Provider Specialty: Anesthesiology Interventional Radiology Pain Management Address: [address] [place], [address] Email: [email or web address] Plan Of Care PT-OP-T Assessment and Plan Start: 11/12/23 08:33 Freq: Status: Active Protocol: Document 11/17/23 15:19 [facility] (Rec: 11/17/23 16:03 [facility] [id number]) Physical Therapy Assessment Rehab Potential Rehabilitation Potential Good Evaluation Complexity Number of Personal Factors/Comorbidities 3 or More Number of Body Systems Impaired 4 or More Clinical Presentation at Evaluation Evolving Impairments Impairments Activity Tolerance,Balance, Functional Activities, Functional Mobility,Gait,Pain, Posture,ROM,Soft Tissue Mobility,Strength Goals strength Short Term Goal (STG) Pt will be indep w/HEP STG Duration 12/21 Relish Blender Goal (LTG) Pt will score at least 4+/5 on all BLE MMT to show improved strength and stability LTG Duration 8 discomfort Penitentiary Goal (LTG) Pt will report dec instances of clickng, stiffness and discomfort by at least 75%. LTG Duration 01/19 Assessment Summary Assessment Pt presents w/B knee clicking and stiffness w/occasional discomfort noted. She has difficulty w/sedentary positions d/t knees getting stiff. Clicking was notable today during ROM testing on R knee and w/rotation hip MMT testing L knee. She is very active and motivated to improve. She does not want injections in her knee. She has some dec ROM in knee w/ pain and some weakness in hips especially that could be affecting knee pain. Arthritis is evident in imaging and consistent w/pt subjective reports. Pt would benefit from skilled PT to work on strength, ROM, balance and mobility in order to dec discomfort and clicking. Physical Therapy Plan Frequency and Duration Frequency of Treatment 2x/Week Duration of treatment (weeks) 8 Plan of Care Start Date 11/17/23 Plan of Care End Date 01/20/24 Therapeutic Interventions Therapeutic Interventions Balance Training,Gait Training ,Home Exercise Program,Joint Mobilizations,Manual Therapy, Neuromuscular Re-education, Orthotic/Prosthetic Management ,Patient/Caregiver Education, Self-Care/Home Management,Soft Tissue Mobilization,Taping, Therapeutic Activities, Therapeutic Exercises Modalities Cold Pack/Ice Massage,Electric Stimulation,Hot Packs, Infrared Therapy,Ultrasound Next Visit Focus/Plan Next Note Type Treatment Note Next Visit Plan HEP:TKE (standing or SAQ), mini squat, s/l abd, clamshells, standing hip ext manual: STM to quads and ITB, patellofemoral glides In clinic: try resisted fwd/ back walk & sidesteps Plan of Care Dates Plan of Care Start Date 11/17/23 Plan of Care End Date 01/20/24 Electronically Signed by: Karine Augustin, PT 11/18/23 [id number] If you are in agreement with this Plan of Care, please return a signed and dated copy. I have reviewed this Plan of Care and certify that the skilled therapy services above are required to meet the patient?s needs. Physician Signature Date Printed Name and Credentials Clinical Instructor Signature Printed Name and Credentials
--- NOTE | 2023-11-24 15:16 | PT.OTN ---
Current Diagnoses Other symptoms and signs involving the musculoskeletal system (11/24/23) Physical Therapy Treatment Note PT-OP-A Visit Information Start: 11/12/23 08:33 Freq: Status: Active Protocol: Document 11/24/23 15:14 TS (Rec: 11/24/23 16:14 [id number]) Out-Patient Physical Therapy Visit Information Visit Information Visit Type Treatment Note Visit Start Time 15:16 Visit Stop Time 15:50 Visit Number 2 Number of VENEER PULLER Visits 1 PT-OP-B Current Condition Start: 11/12/23 08:33 Freq: Status: Active Protocol: Document 11/17/23 15:19 [facility] (Rec: 11/17/23 16:03 [facility] [id number]) Current Condition History of Current Condition Current Complaints B knee stiffness and clicking History of Current Condition Pt reports B knee pain and have a click when she walks. She is told PT, injetions then surgery if those don't work. Pt enjoys ballroom dancing. Exercsies 5 hours a week (3 hrs of functional fitness, 1 hr ballroom lessons and 1 hr dancing) and in summer 2 miles a day and the other day did 4 miles. Pt reports she is aware of her L knee. When she wakes up in the AM, she does some exercises until her knees warm up. They get really stiff and can't sit well d/t knees being stiff. Broke L ankle last summer and recovered w/o surgery. Clicking in B knees started this past year. Since about 81 y.o., pt had knees feel stiff . Treatment Goals Patient/Caregiver Goals dec clicking and dec knee stiffness PT-OP-C Subjective Start: 11/12/23 08:33 Freq: Status: Active Protocol: Document 11/24/23 15:14 TS (Rec: 11/24/23 16:14 [id number]) OP-PT Subjective Patient Comments Patient Comments Pt reports continued clicking in R knee and not in L knee. She does not want to continue PT and wants to enjoy her summer. VENEER PULLER Anand and PT Karine educated pt on the importance of PT prior to surgery. She would like to continue to cancel the rest of her appointments. PT-OP-F Manual Assessment Start: 11/12/23 08:33 Freq: Status: Active Protocol: Document 11/17/23 15:19 [facility] (Rec: 11/18/23 08:06 [facility] [id number]) Manual Assessments Soft Tissue Assessment Soft Tissue Mobility Assessment palpable popping and crepetis on R>L lat; tightness B ITB and quad PT-OP-K Range of Motion Start: 11/12/23 08:33 Freq: Status: Active Protocol: Document 11/17/23 15:19 [facility] (Rec: 11/17/23 16:03 [facility] [id number]) Knee Goniometric Range of Motion Knee Right Flexion Active (degrees) 130 Extension Active (degrees) 6 Comments discomfort w/change in position and lat clicking noted Left Flexion Active (degrees) 122 Extension Active (degrees) 6 PT-OP-M Strength Start: 11/12/23 08:33 Freq: Status: Active Protocol: Document 11/17/23 15:19 [facility] (Rec: 11/17/23 16:03 [facility] [id number]) Hip Strength Hip Manual Muscle Testing Right Flexion (L2) 3+ Fair+ Extension (S1) 3 Fair Abduction 4- Good- Adduction 3+ Fair+ External Rotation 4- Good- Internal Rotation 5 Normal Left Flexion (L2) 4- Good- Extension (S1) 3 Fair Abduction 3+ Fair+ Adduction 4- Good- External Rotation 4- Good- Internal Rotation 5 Normal Comments discomfort w/ER resistance if IR ; cramping HS B w/hip ext Knee Strength Knee Manual Muscle Testing Right Flexion (S2) 5 Normal Extension (L3) 5 Normal Left Flexion (S2) 5 Normal Extension (L3) 5 Normal Ankle/Foot Strength Ankle and Foot Manual Muscle Testing Right Dorsiflexion (L4) 5 Normal Plantarflexion (S1) 5 Normal Left Dorsiflexion (L4) 5 Normal Plantarflexion (S1) 5 Normal Comments seated testing PT-OP-Q Treatments Start: 11/12/23 08:33 Freq: Status: Active Protocol: Document 11/24/23 15:14 TS (Rec: 11/24/23 16:14 TS [id number]) Therapeutic Exercises Sitting Exercises Seated March Side bilateral Equipment Used LVL 3 band Reps/Minutes 2x10 Comments Pt required cues for upright posture abd alternating LE's. Standing Exercises 3 Way Hip Standing Exercise Name Ext/Flex/ADD Side bilateral Resistance LVL 1 Reps/Minutes 1x10 Comments LVL 2 too difficult, pt required cues for home setup Self-Care/Home Management Treatment Education Other Education Educated pt on the importance of PT prior to B knee surgery. PT-OP-T Assessment and Plan Start: 11/12/23 08:33 Freq: Status: Active Protocol: Document 11/24/23 15:14 TS (Rec: 11/24/23 16:14 TS [id number]) Physical Therapy Assessment Goals strength Short Term Goal (STG) Pt will be indep w/HEP STG Duration 12/21 Experimental Plastics Fabricator Goal (LTG) Pt will score at least 4+/5 on all BLE MMT to show improved strength and stability LTG Duration 8.28 discomfort Prison Goal (LTG) Pt will report dec instances of clicking, stiffness and discomfort by at least 75%. Assessment Summary Assessment Ollie still continues to report clicking and discomfort in B knees, R>L. She does not want to continue PT at this time and would like to enjoy her summer. Pt was educated on the importance of PT prior to her knee surgeries. Pt to be D/C from PT. PT Karine notified. Physical Therapy Plan Next Visit Focus/Plan Next Note Type Treatment Note Next Visit Plan Assess carryover of 3 way hip ex and seated marches. HEP:TKE (standing or SAQ), mini squat, s/l abd, clamshells, standing hip ext manual: STM to quads and ITB, patellofemoral glides In clinic: try resisted fwd/ back walk & sidesteps
--- NOTE | 2024-01-04 15:56 | PT.OPDS ---
Current Diagnoses Other symptoms and signs involving the musculoskeletal system (11/24/23) Visit Care Team Role Provider Type KELVIN Brownlee Family Provider Advanced Diversified Crops Supervisor Primary Care Provider Specialty: Family Practice Address: [address] [place] [address], [id number] Email: [email or web address] Santos Nuñez MD Attending Provider Physician Referring Provider Specialty: Anesthesiology Interventional Radiology Pain Management Address: [facility] [place], [address] Email: [email or web address] Visit Number Visit Number 2 Discharge Summary PT-OP-B Current Condition Start: 11/12/23 08:33 Freq: Status: Active Protocol: Document 11/17/23 15:19 [facility] (Rec: 11/17/23 16:03 [facility] [id number]) Current Condition History of Current Condition Current Complaints B knee stiffness and clicking History of Current Condition Pt reports B knee pain and have a click when she walks. She is told PT, injetions then surgery if those don't work. Pt enjoys ballroom dancing. Exercsies 5 hours a week (3 hrs of functional fitness, 1 hr ballroom lessons and 1 hr dancing) and in summer 2 miles a day and the other day did 4 miles. Pt reports she is aware of her L knee. When she wakes up in the AM, she does some exercises until her knees warm up. They get really stiff and can't sit well d/t knees being stiff. Broke L ankle last summer and recovered w/o surgery. Clicking in B knees started this past year. Since about 81 y.o., pt had knees feel stiff . Treatment Goals Patient/Caregiver Goals dec clicking and dec knee stiffness PT-OP-C Subjective Start: 11/12/23 08:33 Freq: Status: Active Protocol: Document 11/24/23 15:14 TS (Rec: 11/24/23 16:14 TS [id number]) OP-PT Subjective Patient Comments Patient Comments Pt reports continued clicking in R knee and not in L knee. She does not want to continue PT and wants to enjoy her summer. UNDERGROUND ELECTRICIAN Anand and PT Karine educated pt on the importance of PT prior to surgery. She would like to continue to cancel the rest of her appointments. PT-OP-F Manual Assessment Start: 11/12/23 08:33 Freq: Status: Active Protocol: Document 11/17/23 15:19 [facility] (Rec: 11/18/23 08:06 [facility] [id number]) Manual Assessments Soft Tissue Assessment Soft Tissue Mobility Assessment palpable popping and crepetis on R>L lat; tightness B ITB and quad PT-OP-K Range of Motion Start: 11/12/23 08:33 Freq: Status: Active Protocol: Document 11/17/23 15:19 [facility] (Rec: 11/17/23 16:03 [facility] [id number]) Knee Goniometric Range of Motion Knee Right Flexion Active (degrees) 130 Extension Active (degrees) 6 Comments discomfort w/change in position and lat clicking noted Left Flexion Active (degrees) 122 Extension Active (degrees) 6 PT-OP-M Strength Start: 11/12/23 08:33 Freq: Status: Active Protocol: Document 11/17/23 15:19 [facility] (Rec: 11/17/23 16:03 [facility] [id number]) Hip Strength Hip Manual Muscle Testing Right Flexion (L2) 3+ Fair+ Extension (S1) 3 Fair Abduction 4- Good- Adduction 3+ Fair+ External Rotation 4- Good- Internal Rotation 5 Normal Left Flexion (L2) 4- Good- Extension (S1) 3 Fair Abduction 3+ Fair+ Adduction 4- Good- External Rotation 4- Good- Internal Rotation 5 Normal Comments discomfort w/ER resistance if IR ; cramping HS B w/hip ext Knee Strength Knee Manual Muscle Testing Right Flexion (S2) 5 Normal Extension (L3) 5 Normal Left Flexion (S2) 5 Normal Extension (L3) 5 Normal Ankle/Foot Strength Ankle and Foot Manual Muscle Testing Right Dorsiflexion (L4) 5 Normal Plantarflexion (S1) 5 Normal Left Dorsiflexion (L4) 5 Normal Plantarflexion (S1) 5 Normal Comments seated testing PT-OP-T Assessment and Plan Start: 11/12/23 08:33 Freq: Status: Active Protocol: Document 01/04/24 15:55 [facility] (Rec: 01/04/24 15:56 [facility] [id number]) Physical Therapy Assessment Goals strength Short Term Goal (STG) Pt will be indep w/HEP STG Duration 12/21 Correction Goal (LTG) Pt will score at least 4+/5 on all BLE MMT to show improved strength and stability LTG Duration 8.28 discomfort Aquatic Habitat Biologist Goal (LTG) Pt will report dec instances of clicking, stiffness and discomfort by at least 75%. Assessment Summary Assessment pt requested DC from PT at last visit w/UNDERGROUND ELECTRICIAN as she has a lot going on during the summer . She talkedt o this PT also and was given HEP to work on. Edu on importance of PT but request for DC. DC to HEP per pt request Physical Therapy Plan Discharge Physical Therapy Discharge Reasons Patient Request
== END 2024-01-07 08:46 | disposition home or self-care (01) ==
LOC: PHYS 15:15
PROVIDERS: Family Provider Nurse Practitioner; PCP Nurse Practitioner; Referring Provider Anesthesiology; Visit Provider Anesthesiology
DX: R29.898 Other symptoms and signs involving the musculoskeletal system (principal)
CPT/HCPCS: 97110; 97162; 97530; 97535

== ENCOUNTER → 2023-12-22 13:55 | Outpatient (CLI) | payer MEDICARE, MEDICAID, SELFPAY ==
[2023-08-12 14:59] VITALS: BMI 20.1
[2023-12-22 15:00] LABS: Add Manual Diff / Slide Review NO; Basophils Absolute Auto 100 /uL (0-100); Basophils Percent Auto 0.7 % (0-2); Eosinophils Absolute Auto 100 /uL (0-450); Eosinophils Percent Auto 0.9 % (2-4); Hematocrit 34.9 % (36-46); Lymphocytes Absolute Auto 2500 /uL (1100-4500); Lymphocytes Percent Auto 27.7 % (25-40); Mean Corpuscular HGB Conc 34.4 % (30-36); Mean Corpuscular Hemoglobin 31.2 PG (26-34); Mean Corpuscular Volume 90.7 fL (80-100); Monocytes Absolute Auto 700 /uL (0-900); Monocytes Percent Auto 8.1 % (3-14); Neutrophils Absolute Auto 5600 /uL (1500-7000); Neutrophils Percent Auto 62.6 % (50-75); Platelet Count 317 X10^3/uL (150-400); Red Blood Cell Count 3.85 X10^6/uL (4.0-5.2); Red Cell Distribution Width 13.4 % (11.6-14.8)
[2023-12-22 15:20] LABS: HEMOLYSIS < 15 (0-50); Iron 93 ug/dL (37-170)
[2023-12-22 15:23] LABS: Alanine Aminotransferase 16 IU/L (<35); Albumin 4.5 g/dL (3.5-5.0); Albumin Globulin Ratio 1.6 (1.0-2.8); Alkaline Phosphatase 70 U/L (38-126); Aspartate Aminotransferase 30 IU/L (14-36); BUN Creatinine Ratio 23.4 (6-22); Bilirubin Total 0.5 mg/dL (0.2-1.3); Blood Urea Nitrogen 25 mg/dL (7-17); Calcium 9.1 mg/dL (8.4-10.2); Carbon Dioxide 25 mmol/L (22-32); Chloride 94 mmol/L (98-107); Estimated Glomerular Filt Rate 50 mL/min (>60); Globulin 2.9 g/dL (1.7-4.1); Glucose 71 mg/dL (80-110); HEMOLYSIS < 15 (0-50); Potassium 4.2 mmol/L (3.4-5.1); Sodium 128 mmol/L (137-145); Total Protein 7.4 g/dL (6.3-8.2)
[2023-12-22 15:35] LABS: Percent Iron Saturation 28 % (15-50); Total Iron Binding Capacity 335 ug/dL (265-497); Transferrin 262 mg/dL (206-381)
[2023-12-22 15:54] LABS: Thyroid Stimulating Hormone 0.957 uIU/mL (0.47-4.68)
[2023-12-22 16:16] LABS: Vitamin B12 780 pg/mL (239-931)
== END ==
PROVIDERS: Family Provider Nurse Practitioner; PCP Nurse Practitioner; Referring Provider Nurse Practitioner; Visit Provider Nurse Practitioner
DX: D64.9 Anemia, unspecified (principal); E87.1 Hypo-osmolality and hyponatremia; E03.9 Hypothyroidism, unspecified; I10 Essential (primary) hypertension; E78.2 Mixed hyperlipidemia; Z79.899 Other long term (current) drug therapy
CPT/HCPCS: 36415; 80053; 82607; 83540; 83550; 84443; 85025

== ENCOUNTER → 2023-12-31 12:51 | Outpatient (CLI) | payer MEDICARE, MEDICAID, SELFPAY ==
[2023-08-12 14:59] VITALS: BMI 20.1
--- NOTE | 2023-12-31 12:52 | DI.MG.S_ITS ---
BILATERAL DIGITAL SCREENING MAMMOGRAM 3D/2D WITH CAD: 12/31/2023 CLINICAL: Routine screening. Comparison is made to exams dated: 12/11/2022 mammogram, 06/11/2009 mammogram, and 05/29/2008 mammogram - . There are scattered areas of fibroglandular density in both breasts (category b / 25%-50% glandular tissue). Current study was also evaluated with a Computer Aided Detection (CAD) system. No significant masses, calcifications, or other findings are seen in either breast. There has been no significant interval change. IMPRESSION: NEGATIVE There is no mammographic evidence of malignancy. A 1 year screening mammogram is recommended. This exam was interpreted at Station ID: [id number]. NOTE: For mammograms, a report in lay terms will be sent to the patient. Approximately 15% of breast malignancies will not be visualized mammographically. In the management of a palpable breast mass, a negative mammogram must not discourage biopsy of a clinically suspicious lesion. Electronically Signed By: Johnny valente/jacinta:12/31/2023 16:24:39 letter sent: Normal Exam ACR BI-RADS Category 1: Negative [id number]
== END ==
PROVIDERS: Family Provider Nurse Practitioner; PCP Nurse Practitioner; Referring Provider Nurse Practitioner; Visit Provider Nurse Practitioner
DX: Z12.31 Encounter for screening mammogram for malignant neoplasm of breast (principal); R92.323 Mammographic fibroglandular density, bilateral breasts
CPT/HCPCS: 77063; 77067

== ENCOUNTER → 2024-07-15 13:44 | Outpatient (CLI) | payer MEDICARE, MEDICAID, SELFPAY ==
[2023-12-31 13:34] VITALS: BMI 20.1
[2024-07-18 17:08] LABS: Fecal Immunochemical Test Negative (Negative)
== END ==
LOC: LAB 13:45
PROVIDERS: Family Provider Nurse Practitioner; PCP Nurse Practitioner Family; Referring Provider Nurse Practitioner Family; Visit Provider Nurse Practitioner Family
DX: Z12.11 Encounter for screening for malignant neoplasm of colon (principal); E03.9 Hypothyroidism, unspecified; K64.9 Unspecified hemorrhoids; E78.2 Mixed hyperlipidemia; N95.2 Postmenopausal atrophic vaginitis
CPT/HCPCS: 82274

== ENCOUNTER → 2024-09-16 13:44 | Outpatient (CLI) | payer MEDICARE, MEDICAID, SELFPAY ==
[2023-12-31 13:34] VITALS: BMI 20.1
[2024-09-16 14:16] LABS: Add Manual Diff / Slide Review NO; Basophils Absolute Auto 100 /uL (0-100); Basophils Percent Auto 0.6 % (0-2); Eosinophils Absolute Auto 100 /uL (0-450); Eosinophils Percent Auto 0.6 % (2-4); Hematocrit 33.2 % (36-46); Hemoglobin 11.6 g/dL (12.0-16.0); Lymphocytes Absolute Auto 2800 /uL (1100-4500); Lymphocytes Percent Auto 26.1 % (25-40); Mean Corpuscular HGB Conc 35.1 % (30-36); Mean Corpuscular Hemoglobin 31.2 PG (26-34); Mean Corpuscular Volume 89.1 fL (80-100); Monocytes Absolute Auto 900 /uL (0-900); Monocytes Percent Auto 8.1 % (3-14); Neutrophils Absolute Auto 6900 /uL (1500-7000); Neutrophils Percent Auto 64.6 % (50-75); Platelet Count 296 X10^3/uL (150-400); Red Blood Cell Count 3.73 X10^6/uL (4.0-5.2); Red Cell Distribution Width 13.4 % (11.6-14.8); White Blood Cell Count 10.7 X10^3/uL (4.5-11.0)
[2024-09-16 14:43] LABS: Alanine Aminotransferase 19 IU/L (<35); Albumin 4.5 g/dL (3.5-5.0); Albumin Globulin Ratio 1.6 (1.0-2.8); Alkaline Phosphatase 62 U/L (38-126); Aspartate Aminotransferase 32 IU/L (14-36); BUN Creatinine Ratio 23.1 (6-22); Bilirubin Total 0.5 mg/dL (0.2-1.3); Blood Urea Nitrogen 25 mg/dL (7-17); Calcium 10.2 mg/dL (8.4-10.2); Carbon Dioxide 28 mmol/L (22-32); Chloride 91 mmol/L (98-107); Cholesterol 177 mg/dL (140-199); Estimated Glomerular Filt Rate 50 mL/min (>60); Globulin 2.9 g/dL (1.7-4.1); Glucose 84 mg/dL (70-99); HDL Cholesterol 86 mg/dL (40-60); HEMOLYSIS < 15 (0-50); LDL Cholesterol Calculated 71 mg/dL (<100); Potassium 3.9 mmol/L (3.4-5.1); Sodium 128 mmol/L (137-145); Total Protein 7.4 g/dL (6.3-8.2); Triglycerides 98 mg/dL (35-150)
[2024-09-16 15:01] LABS: Vitamin D 25 Hydroxy (D3) 77.7 ng/mL (30.0-100.0)
[2024-09-16 15:14] LABS: TSH w/ Reflex to FT4 1.68 uIU/mL (0.47-4.68)
== END ==
PROVIDERS: Family Provider Nurse Practitioner; PCP Nurse Practitioner Family; Referring Provider Nurse Practitioner Family; Visit Provider Nurse Practitioner Family
DX: E03.9 Hypothyroidism, unspecified (principal); M81.0 Age-related osteoporosis without current pathological fracture; K64.9 Unspecified hemorrhoids; N95.2 Postmenopausal atrophic vaginitis; E78.2 Mixed hyperlipidemia
CPT/HCPCS: 36415; 80053; 80061; 82306; 84443; 85025

== ENCOUNTER → 2024-09-23 11:40 | Outpatient (CLI) | payer MEDICARE, MEDICAID, SELFPAY ==
[2023-12-31 13:34] VITALS: BMI 20.1
--- NOTE | 2024-09-23 11:43 | DI.RAD.S_ITS ---
In PROCEDURE: XR DEXA AXIAL SKELETON INDICATIONS: osteoporosis COMPARISON: [facility], , XR DEXA AXIAL SKELETON, 12/11/2022, 14:32. FINDINGS: Lumbar Spine: Bone mineral density 0.849 g/cm2, T score -1.8, Prior study was performed on a different unit, and therefore it is not possible to evaluate potential statistically significant change between the 2 studies. . Left Femoral Neck: Bone mineral density 0.499 g/cm2, T score -3.2. Left Hip: Bone mineral density 0.630 g/cm2, T score -2.6, Prior study was performed on a different unit, and therefore it is not possible to evaluate potential statistically significant change between the 2 studies. Fracture Risk Calculation (when applicable): Not valid in osteoporotic patients. Only valid in patients with osteopenia (T score greater or equal to -1.0 to: NORMAL) (T score from -1.1 to -2.4: OSTEOPENIA) (T score less than or equal to -2.5: OSTEOPOROSIS) IMPRESSION: 1. By WHO (World Health Organization) criteria, this patient has osteoporosis 2. Fracture Risk Calculation is not utilized in patients with osteoporosis 3. Medical evaluation for secondary causes of low bone density should be considered along with maximizing calcium and vitamin D nutrition. Due to this patient's associated increased 10 year fracture risk, osteoporosis therapy may be indicated. Recommend clinical correlation. Consider repeat DEXA scan in 1 to 2 years. 4. Prior study was performed on a different unit, and therefore it is not possible to evaluate potential statistically significant change between the 2 studies. Follow-up guidelines as follows: Osteoporosis: Consider a repeat DEXA and Vertebral Fracture Assessment (VFA) exam in 2 years or sooner if medically necessary, to reassess this patient's status. Osteopenia: Consider a repeat DEXA in 2-3 years to reassess this patient's status, or if there is a new clinical indication. Normal: Consider a repeat DEXA in 5 years or sooner, or if there is a new clinical indication. All treatment decisions require clinical judgment and consideration of individual patient factors, including patient preferences, comorbidities, previous drug use, risk factors not captured in the FRAX model (e.g., frailty, falls, vitamin D deficiency, increased bone turnover, interval significant decline in bone density ) and possible under- or over-estimation of fracture risk by FRAX. In addition, the NOF Guide recommends that FDA-approved medical therapies be considered in postmenopausal women and men age >= 50 years with a: * Hip or vertebral (clinical or morphometric) fracture * T-score of <=-2.5 at the spine or hip * Ten-year fracture probability by FRAX of >= 3% for hip fracture or >=20% for major osteoporotic fracture. Dictated by: Willian Cuellar M.D. on 09/23/2024 at 21:53 Approved by: Wililan Cuellar M.D. on 09/23/2024 at 21:55
== END ==
PROVIDERS: Family Provider Nurse Practitioner; PCP Nurse Practitioner Family; Referring Provider Nurse Practitioner Family; Visit Provider Nurse Practitioner Family
DX: M81.0 Age-related osteoporosis without current pathological fracture (principal)
CPT/HCPCS: 77080

== ENCOUNTER → 2025-01-02 11:34 | Outpatient (CLI) | payer MEDICARE, MEDICAID, SELFPAY ==
[2023-12-31 13:34] VITALS: BMI 20.1
--- NOTE | 2025-01-02 11:36 | DI.MG.S_ITS ---
MM screening mammo BI: 01/02/2025. BI-RADS: 1 CLINICAL: 89-year old female for bilateral screening mammogram. No Tyrer-Cuzick risk score calculation due to patient's age being over 85 years old. No personal or first-degree family history of breast cancer. PRIOR EXAMS 12/31/2023, 12/11/2022. MAMMOGRAPHY TECHNIQUE: 2D and 3D (tomosynthesis) digital mammographic views obtained, with additional images as needed for full coverage. Current study was also evaluated with a Computer Aided Detection (CAD) system. DENSITY B. There are scattered areas of fibroglandular density. MAMMOGRAPHY FINDINGS Bilateral: No suspicious mass, asymmetry, microcalcification, or other abnormality seen. IMPRESSION: * No evidence of malignancy. RECOMMENDATIONS Bilateral * Annual screening mammography. OVERALL ASSESSMENT CATEGORY BI-RADS-1: Negative. The [employer] recommends annual screening mammography beginning at age 40 for women with average risk of breast cancer. ELECTRONICALLY SIGNED: Cinthya Hayes M.D. on 01/02/2025 at 11:05:42 PM PT Interpreting Station ID: [id number]
== END ==
LOC: MAMMO 11:35
PROVIDERS: Family Provider Nurse Practitioner; PCP Nurse Practitioner Family; Referring Provider Nurse Practitioner Family; Visit Provider Nurse Practitioner Family
DX: Z12.31 Encounter for screening mammogram for malignant neoplasm of breast (principal)
CPT/HCPCS: 77063; 77067

== ENCOUNTER → 2025-03-10 11:32 | Outpatient (CLI) | payer MEDICARE, MEDICAID, SELFPAY ==
[2023-12-31 13:34] VITALS: BMI 20.1
[2025-03-10 11:55] LABS: Add Manual Diff / Slide Review NO; Hematocrit 32.4 % (36-46); Hemoglobin 11.4 g/dL (12.0-16.0); Lymphocytes Absolute Auto 2700 /uL (1100-4500); Mean Corpuscular HGB Conc 35.3 % (30-36); Mean Corpuscular Hemoglobin 30.9 PG (26-34); Mean Corpuscular Volume 87.6 fL (80-100); Platelet Count 299 X10^3/uL (150-400)
[2025-03-10 12:16] LABS: HEMOLYSIS < 15 (0-50); Iron 68 ug/dL (37-170)
[2025-03-10 12:18] LABS: Blood Urea Nitrogen 25 mg/dL (7-17); Calcium 9.9 mg/dL (8.4-10.2); Carbon Dioxide 23 mmol/L (22-32); Estimated Glomerular Filt Rate 38 mL/min (>60); Glucose 109 mg/dL (70-99); Potassium 4.1 mmol/L (3.4-5.1); Sodium 127 mmol/L (137-145)
[2025-03-10 12:24] LABS: Chloride 92 mmol/L (98-107); HEMOLYSIS 24 (0-50)
[2025-03-10 12:27] LABS: Percent Iron Saturation 23 % (15-50); Total Iron Binding Capacity 301 ug/dL (265-497); Transferrin 246 mg/dL (206-381)
[2025-03-10 12:53] LABS: TSH w/ Reflex to FT4 1.33 uIU/mL (0.47-4.68)
[2025-03-10 13:03] LABS: Ferritin 103 ng/mL (11-264)
[2025-03-10 13:27] LABS: Folate > 20.0 ng/mL (2.76-20.0); Vitamin B12 776 pg/mL (239-931)
== END ==
PROVIDERS: PCP Nurse Practitioner Family; Referring Provider Nurse Practitioner Family; Visit Provider Nurse Practitioner Family
DX: R42 Dizziness and giddiness (principal); D64.9 Anemia, unspecified; E03.9 Hypothyroidism, unspecified; I10 Essential (primary) hypertension; R00.2 Palpitations
CPT/HCPCS: 36415; 80048; 82607; 82728; 82746; 83540; 83550; 84443; 85025

== ENCOUNTER → 2025-03-22 13:32 | Outpatient (CLI) | payer MEDICARE, MEDICAID, SELFPAY ==
[2023-12-31 13:34] VITALS: BMI 20.1
== END ==
LOC: CAR 13:33
PROVIDERS: PCP Nurse Practitioner Family; Referring Provider Nurse Practitioner Family; Visit Provider Nurse Practitioner Family
DX: R00.1 Bradycardia, unspecified (principal); R00.2 Palpitations; R42 Dizziness and giddiness
CPT/HCPCS: 93242

== ENCOUNTER → 2025-03-30 13:33 | Outpatient (CLI) | payer MEDICARE, MEDICAID, SELFPAY ==
[2023-12-31 13:34] VITALS: BMI 20.1
--- NOTE | 2025-03-30 13:34 | DI.ECHO.S_ITS ---
[facility] : : [id number] : [place] : : [id number] : : Phone: [phone] Echocardiogram Report + + :Name: RADHA TILLMAN Study Date: 03/30/2025 Height: 63 in : :[facility] ReadingLocation: Weight: 108 lb : : Gender: Female BSA: 1.5 m2 : :: 1935 Age: 89 yrs BP: 142/74 mmHg: :Reason For Study: DIZZINESS : :Ordering Physician: SHAD, : :MARGARETTE Performed By: Joe Cordon : :Referring: MARGARETTE KULKARNI : + + Interpretation Summary 1) Normal left ventricular size, thickness, wall motion, and systolic function (EF 60-65%). 2) Normal right ventricular size and function. 3) The left atrium is severely dilated. 4) No significant valvular abnormalities. 5) The right ventricular systolic pressure is estimated to be at least 51 mmHg based on an estimated right atrial pressure of 3 mm Hg. 6) Compared to the echo 10/30/2021, systolic pulmonary artery has increased from 31mmHg to 51mmHg on this study. Procedure: A two-dimensional transthoracic echocardiogram with color flow and Doppler was performed. The study quality was technically adequate. Comparison is made with the echocardiogram of 10/30/2021. The patient was in atrial fibrillation with heart rates between 44-67 bpm during the exam. Left Ventricle: The left ventricle is normal in size. There is normal left ventricular wall thickness. There is no ventricular septal defect visualized. The ejection fraction is estimated to be 60-65%. There are no focal wall motion abnormalities. Grade I diastolic dysfunction with normal left atrial pressure. Right Ventricle: The right ventricle is normal in size and function. Atria: The left atrium is severely dilated. The right atrium is mildly dilated. There is no Doppler evidence for an interatrial shunt. Mitral Valve: The mitral valve leaflets appear normal. There is no evidence of stenosis, fluttering, or prolapse. There is mild mitral regurgitation. Aortic Valve: The aortic valve is trileaflet. The aortic valve is mildly calcified. There is no aortic valve stenosis. There is trace aortic regurgitation. Tricuspid Valve: The tricuspid valve leaflets are thin and pliable. There is mild tricuspid regurgitation. The right ventricular systolic pressure is estimated to be at least 51 mmHg based on an estimated right atrial pressure of 3 mm Hg. Pulmonic Valve: The pulmonic valve is not well seen, but is grossly normal. There is trace pulmonic regurgitation. Great Vessels: The aortic root is normal size. The ascending aorta could not be visualized. The pulmonary artery is normal size. The IVC is of normal diameter and collapses greater than 50% with a sniff. This suggests a low right atrial pressure of 3 mm Hg. Pericardium/ Pleura There is no pericardial effusion. There is no pleural effusion. MMode/2D Measurements & Calculations LVIDd: 4.8 cm LVOT diam: 2.0 cm LVIDs: 2.4 cm Ao root diam: 3.0 cm FS: 49.8 % EPSS: 0.59 cm IVSd: 0.93 cm LVPWd: 0.78 cm LV raman. diameter/BSA (cm/m^2): 3.2 LV sys. diameter/BSA (cm/m^2): 1.6 LA A2 area: 23.1 cm2 RA long axis: 5.5 cm LA A4 area: 23.3 cm2 RA area: 15.0 cm2 LA length (vol): 5.6 cm RA vol: 35.0 ml LA vol: 81.3 ml RA : 23.5 ml/m2 LA vol index: 54.7 ml/m2 IVC diam: 1.6 cm RVD1 (basal): 3.6 cm RVD2 (mid): 2.1 cm TAPSE: 2.9 cm Doppler Measurements & Calculations Ao V2 max: 157.8 cm/sec LVOT Max Nahid: 98.8 cm/sec Ao V2 mean: 108.2 cm/sec LV V1 max P.9 mmHg Ao max P.0 mmHg LV V1 VTI: 24.1 cm Ao mean P.3 mmHg VINNY(I,D): 2.1 cm2 Ao V2 VTI: 37.1 cm VINNY(V,D): 2.0 cm2 sev ratio: 0.65 VINNY indexed to BSA (cm^2/m^2): 1.4 MV E max nahid: 65.6 cm/sec TR max nahid: 345.8 cm/sec MV A max nahid: 52.0 cm/sec TR max P.8 mmHg MV E/A: 1.3 PA V2 max: 130.5 cm/sec Med Peak E' Nahid: 5.2 cm/sec PA V2 mean: 90.2 cm/sec E/E' med: 12.7 PA mean P.6 mmHg Lat Peak E' Nahid: 6.6 cm/sec PA pr(Accel): 46.5 mmHg E/E' lat: 9.9 E/e' average: 11.3 MV dec time: 0.15 sec [facility] 78.0 ml Reading Physician:06:16 PM
== END ==
LOC: ECHO 13:34
PROVIDERS: PCP Nurse Practitioner Family; Referring Provider Nurse Practitioner Family; Visit Provider Nurse Practitioner Family
DX: I08.1 Rheumatic disorders of both mitral and tricuspid valves (principal); R42 Dizziness and giddiness; R00.1 Bradycardia, unspecified; R00.2 Palpitations
CPT/HCPCS: 93306